=== PATIENT | female | born 1930 | race Caucasian/White ===

== ENCOUNTER → 2016-05-20 | Outpatient (CLI) | payer MEDICARE ==
--- NOTE | 2016-05-20 13:17 | US ---
EXAMINATION TYPE: US kidneys/renal and bladder DATE OF EXAM: 05/20/2016 12:40 PM COMPARISON: NONE CLINICAL HISTORY: chronic renal disease. 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 This appears simply cystic. Bladder: within normal limits There is no evidence for hydronephrosis at this point in time. No nephrolithiasis is seen. No mike s are identified. The urinary bladder is anechoic. Bilateral ureteral jets are seen. The kidneys are isoechoic to surrounding tissue and difficult to visualize IMPRESSION: Simple appearing, 3 cm left renal cyst. Normal Values: Renal Length = 9 - 12cm Bladder Wall: < 0.3cm
== END | disposition home or self-care (01) ==
LOC: RADUSWWP 12:19
PROVIDERS: ATTEND Internal Medicine Nephrology
DX: N28.1 Cyst of kidney, acquired (principal)
CPT/HCPCS: 76770

== ENCOUNTER 2016-06-01 21:32 | Inpatient (IN) | payer MEDICARE ==
[2016-06-01] MEDS ORDERED: PANTOPRAZOLE 40 MG/10 ML VIAL IVP STA (21:56)
--- NOTE | 2016-06-01 22:00 | ED ---
General Adult HPI - General Chief complaint: Recheck/Abnormal Lab/Rx Stated complaint: high coumadin-sent by Time Seen by Provider: 06/01/16 21:47 Source: patient, RN notes reviewed Mode of arrival: wheelchair Limitations: no limitations - History of Present Illness Initial comments: Patient is a pleasant 86-year-old female presenting to the emergency Department with reported abnormal INR level. Patient is on Coumadin for clogged arteries and atrial fibrillation. No black or tarry stools. Patient has had some epigastric abdominal discomfort recently and did have a recent ultrasound of her gallbladder with unknown results. Patient had blood work done and called with an INR level of 9.2. Patient did have low hemoglobin last week and received 2 units of blood at [facility] Patient has been somewhat fatigued for the past week or so. No dyspnea. Patient does have a history of stomach ulcer and stomach cancer in the past. - Related Data Home Medications Medication Instructions Recorded Confirmed Allopurinol [Zyloprim] 150 mg PO DAILY 12/12/13 06/01/16 Atorvastatin [Lipitor] 20 mg PO HS 12/12/13 06/01/16 Ergocalciferol [Vitamin D2 50,000 unit PO CARTY 12/12/13 06/01/16 (DRISDOL)] Fluticasone/Salmeterol [Advair 1 puff INHALATION RT-DAILY 12/12/13 06/01/16 100-50 Diskus] Levothyroxine Sodium [Synthroid] 125 mcg PO DAILY 12/12/13 06/01/16 Montelukast [Singulair] 10 mg PO HS 12/12/13 06/01/16 Raloxifene [Evista] 60 mg PO DAILY 12/12/13 06/01/16 ALPRAZolam [Xanax] 0.25 mg PO Q8HR PRN 10/11/14 06/01/16 B12/Levomefolate Calcium/B-6 1 tab PO DAILY 01/27/16 06/01/16 [Foltx Tablet] Ferrous Gluconate 325 mg PO TID 01/27/16 06/01/16 Fosinopril [Monopril] 10 mg PO DAILY 01/27/16 06/01/16 Calcium Carbonate [Tums] 500 mg PO QID PRN 06/01/16 06/01/16 Warfarin Sodium 4 mg PO SUMOWEFRSA 06/01/16 06/01/16 Warfarin Sodium 6 mg PO TUTH 06/01/16 06/01/16 Previous Rx's Medication Instructions Recorded traMADol HCl [Ultram] 50 mg PO Q6HR PRN #20 tab 01/30/15 Allergies Allergy/AdvReac Type Severity Reaction Status Date / Time aspirin Allergy Rash/Hives Verified 06/01/16 21:49 red dye Allergy Dyspnea Verified 06/01/16 21:49 metoprolol AdvReac Nausea & Verified 06/01/16 21:49 Vomiting Review of Systems ROS Statement: Those systems with pertinent positive or pertinent negative responses have been documented in the HPI. ROS Other: All systems not noted in ROS Statement are negative. Constitutional: Denies: fever Eyes: Denies: eye pain ENT: Denies: ear pain Respiratory: Denies: cough, dyspnea Cardiovascular: Denies: chest pain Endocrine: Reports: fatigue Gastrointestinal: Reports: abdominal pain. Denies: melena, hematochezia Musculoskeletal: Denies: back pain Skin: Denies: rash Neurological: Denies: weakness Past Medical History Past Medical History: Atrial Fibrillation, Asthma, Cancer, GERD/Reflux, Hyperlipidemia, Hypertension, Osteoarthritis (OA), Renal Disease, Thyroid Disorder Additional Past Medical History / Comment(s): duodenal getting chemo(last tx 1 week ago, cancer, thyroid cancer 1960, gout, UTI, anemia, uti's (10-11-14 e coli ), bakers cyst lt knee,osteoporosis History of Any Multi-Drug Resistant Organisms: None Reported Past Surgical History: Joint Replacement, Orthopedic Surgery Additional Past Surgical History / Comment(s): JUSTIN CATARACTS, THYROIDECTOMY, ARTHROSCOPY left knee, TOTAL LEFT KNEE, duodenal stent Past Anesthesia/Blood Transfusion Reactions: No Reported Reaction Additional Past Anesthesia/Blood Transfusion Reaction / Comment(s): BLOOD TRANSFUSION 10/12/14 Past Psychological History: Anxiety Smoking Status: Never smoker Past Alcohol Use History: None Reported Past Drug Use History: None Reported - Past Family History Mother Family Medical History: Diabetes Mellitus General Exam Limitations: no limitations General appearance: alert, in no apparent distress Head exam: Present: atraumatic Eye exam: Present: normal appearance, PERRL ENT exam: Present: normal oropharynx Neck exam: Present: normal inspection Respiratory exam: Present: normal lung sounds bilaterally Cardiovascular Exam: Present: regular rate, normal rhythm GI/Abdominal exam: Present: soft. Absent: tenderness, guarding, rebound, rigid Rectal exam: Present: normal inspection. Absent: black stool, bloody stool Extremities exam: Present: normal inspection Neurological exam: Present: alert Psychiatric exam: Present: normal affect, normal mood Skin exam: Absent: rash Course Vital Signs 06/01/16 21:35 Temperature 98.3 F Pulse Rate 68 Respiratory 16 Rate Blood Pressure 154/62 O2 Sat by Pulse 100 Oximetry Medical Decision Making - Medical Decision Making Patient reevaluated and resting comfortably in bed. Patient does have ultrasound done with report still pending, ultrasound was done as an outpatient. This will need to be reviewed. Patient is Hemoccult-positive with some anemia. Patient will be admitted with GI consult. Case was discussed in detail with practitioner Moraima, who will admit for Dr. Campbell, covering for Dr. Naqvi - Lab Data Result diagrams: 06/01/16 22:30 06/01/16 22:30 Lab Results 06/01/16 06/01/16 06/01/16 Range/Units 22:30 22:30 22:30 WBC 5.0 (3.8-10.6) k/uL RBC 2.72 L (3.80-5.40) m/uL Hgb 8.2 L (11.4-16.0) gm/dL Hct 26.1 L (34.0-46.0) % MCV 96.3 (80.0-100.0) fL MCH 30.3 (25.0-35.0) pg MCHC 31.5 (31.0-37.0) g/dL RDW 15.2 (11.5-15.5) % Plt Count 237 (150-450) k/uL Neutrophils % 75 % Lymphocytes % 14 % Monocytes % 7 % Eosinophils % 2 % Basophils % 1 % Neutrophils # 3.8 (1.3-7.7) k/uL Lymphocytes # 0.7 L (1.0-4.8) k/uL Monocytes # 0.4 (0-1.0) k/uL Eosinophils # 0.1 (0-0.7) k/uL Basophils # 0.0 (0-0.2) k/uL Hypochromasia Slight Poikilocytosis Slight Sodium 141 (137-145) mmol/L Potassium 4.0 (3.5-5.1) mmol/L Chloride 105 (98-107) mmol/L Carbon Dioxide 26 (22-30) mmol/L Anion Gap 10 mmol/L BUN 46 H (7-17) mg/dL Creatinine 1.54 H (0.52-1.04) mg/dL Est GFR (MDRD) Af Amer 39 (>60 ml/min/1.73 sqM) Est GFR (MDRD) Non-Af 32 (>60 ml/min/1.73 sqM) Glucose 107 H (74-99) mg/dL Calcium 8.2 L (8.4-10.2) mg/dL Total Bilirubin 0.3 (0.2-1.3) mg/dL AST 120 H (14-36) U/L ALT 125 H (9-52) U/L Alkaline Phosphatase 152 H (38-126) U/L Total Protein 5.9 L (6.3-8.2) g/dL Albumin 3.2 L (3.5-5.0) g/dL Stool Occult Blood Positive H (Negative) Blood Type Blood Type Recheck Antibody Screen Spec Expiration Date 06/01/16 Range/Units 22:30 WBC (3.8-10.6) k/uL RBC (3.80-5.40) m/uL Hgb (11.4-16.0) gm/dL Hct (34.0-46.0) % MCV (80.0-100.0) fL MCH (25.0-35.0) pg MCHC (31.0-37.0) g/dL RDW (11.5-15.5) % Plt Count (150-450) k/uL Neutrophils % % Lymphocytes % % Monocytes % % Eosinophils % % Basophils % % Neutrophils # (1.3-7.7) k/uL Lymphocytes # (1.0-4.8) k/uL Monocytes # (0-1.0) k/uL Eosinophils # (0-0.7) k/uL Basophils # (0-0.2) k/uL Hypochromasia Poikilocytosis Sodium (137-145) mmol/L Potassium (3.5-5.1) mmol/L Chloride (98-107) mmol/L Carbon Dioxide (22-30) mmol/L Anion Gap mmol/L BUN (7-17) mg/dL Creatinine (0.52-1.04) mg/dL Est GFR (MDRD) Af Amer (>60 ml/min/1.73 sqM) Est GFR (MDRD) Non-Af (>60 ml/min/1.73 sqM) Glucose (74-99) mg/dL Calcium (8.4-10.2) mg/dL Total Bilirubin (0.2-1.3) mg/dL AST (14-36) U/L ALT (9-52) U/L Alkaline Phosphatase (38-126) U/L Total Protein (6.3-8.2) g/dL Albumin (3.5-5.0) g/dL Stool Occult Blood (Negative) Blood Type AB Positive Blood Type Recheck No Antibody Screen NEGATIVE Spec Expiration Date 06/04/2016 - 233 Disposition Clinical Impression: Coagulopathy, GI hemorrhage Disposition: ADMITTED IP TO THIS [facility] Condition: Serious
[2016-06-01] MEDS ORDERED: PHYTONADIONE 2 MG in SODIUM CHLORIDE 0.9% 50 ML IVPB STA ×2 (22:01→23:44)
[2016-06-01 22:48] LABS: Basophils % (A) 1 %; CHCM 32.4; Eosinophils # (A) 0.1 k/uL (0-0.7); Eosinophils % (A) 2 %; HCT 26.1 % (34.0-46.0); HDW 3.54; HGB 8.2 gm/dL (11.4-16.0); Hypochromasia Slight; Luc # (Auto) 0.06; Luc % (Auto) 1; Lymphocytes # (A) 0.7 k/uL (1.0-4.8); Lymphocytes % (A) 14 %; MCH 30.3 pg (25.0-35.0); MCHC 31.5 g/dL (31.0-37.0); MCV 96.3 fL (80.0-100.0); Mean Platelet Volume 8.1; Monocytes # (A) 0.4 k/uL (0-1.0); Monocytes % (A) 7 %; Neutrophils # (A) 3.8 k/uL (1.3-7.7); Neutrophils % (A) 75 %; Poikilocytosis Slight; RBC 2.72 m/uL (3.80-5.40); RDW 15.2 % (11.5-15.5); WBC (Perox) 5.15
[2016-06-01 22:59] LABS: Calcium 8.2 mg/dL (8.4-10.2); Total Bilirubin 0.3 mg/dL (0.2-1.3); Total Protein 5.9 g/dL (6.3-8.2)
[2016-06-01 23:08] LABS: Partial Thromboplastin Time 57.1 sec (22.0-30.0); Prothrombin Time 106.7 sec (9.0-12.0)
[2016-06-01] MEDS ORDERED: NALOXONE 0.4 MG/ML 1 ML VIAL IV PRN (23:37)
[2016-06-01 23:39] LABS: INR >10.0 (<1.1)
[2016-06-01] MEDS ORDERED: PHYTONADIONE ORAL 5 MG/5 ML ORAL.SYRG PO STA (23:41)
[2016-06-02] MEDS: SODIUM CHLORIDE 0.9% 1,000 ML IV SCH ×3 (00:06→11:33)
[2016-06-02 07:01] LABS: Basophils % (A) 0 %; CH 30.6; CHCM 31.3; Eosinophils # (A) 0.1 k/uL (0-0.7); Eosinophils % (A) 3 %; HCT 23.9 % (34.0-46.0); HDW 3.43; HGB 7.6 gm/dL (11.4-16.0); Hypochromasia Moderate; Luc # (Auto) 0.06; Luc % (Auto) 2; Lymphocytes # (A) 0.9 k/uL (1.0-4.8); Lymphocytes % (A) 22 %; MCH 31.2 pg (25.0-35.0); MCHC 31.7 g/dL (31.0-37.0); MCV 98.5 fL (80.0-100.0); Mean Platelet Volume 6.8; Monocytes # (A) 0.3 k/uL (0-1.0); Monocytes % (A) 7 %; Neutrophils # (A) 2.7 k/uL (1.3-7.7); Neutrophils % (A) 67 %; Poikilocytosis Slight; RBC 2.42 m/uL (3.80-5.40); RDW 14.7 % (11.5-15.5)
[2016-06-02 07:14] LABS: INR 1.7 (<1.1); Prothrombin Time 16.6 sec (9.0-12.0)
[2016-06-02 07:28] LABS: Calcium 7.7 mg/dL (8.4-10.2); Potassium 4.1 mmol/L (3.5-5.1); Total Bilirubin 0.6 mg/dL (0.2-1.3); Total Protein 5.1 g/dL (6.3-8.2)
--- NOTE | 2016-06-02 11:14 | P.CONS ---
History of Present Illness - Reason for Consult Consult date: 06/02/16 GI hemorrhage Requesting physician: Donya Campbell - History of Present Illness 86-year-old female patient of Dr. 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 Patient sent to the emergency room for elevated INR greater than 10 with mid epigastric/RUQ discomfort. Ultrasound abdomen was performed Dr. Jackson's office yesterday results are pending. Received 1 unit of FFP current INR 1.7. Hemoglobin on admission 8.2. MCV 96. Current hemoglobin 7.6. Platelet 201. BUN 46. Creatinine 1.5. Total bilirubin 0.3. AST 120. ALT 125. Alkaline phosphatase 152. Hemoccult stool positive but denies overt hematemesis, hematochezia, or melena. Last EGD evaluation for suspected upper GI bleed was in July 2015 at [facility] does not remember the findings but states there was no progression of cancer. Colonoscopy 3-4 years ago to her memory was normal. She received 2 units of blood about a week ago as an outpatient at [facility] for a hemoglobin of 7.0. Review of Systems Constitutional: Denies fever, chills, sweats, weight gain, or loss. HEENT: Negative for migraines, blurred vision or loss, earaches, drainage, tinnitus, oral mucosal lesions, dysphagia, or odynophagia. CARDIAC: Negative for chest pain, Hx of a fib. Hx of hypertension and hyperlipidemia. RESPIRATORY: Negative for shortness of breath, hemoptysis, cough, or sputum production. GI: Adenocarcinoma of duodenum, Hx GERD, negative for nausea, vomiting, diarrhea , constipation, hematemesis, hematochezia, and melena. : Negative for hematuria, urgency, frequency, polyuria, or dysuria. 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 Negative vaginal discharge. MUSCULOSKELETAL: Negative for muscle aches, swelling, arthritis, and arthralgias. NEUROLOGIC: Negative for stroke or TIA. ENDOCRINE: Negative for thyroid problems. SKIN: Negative for rash or itching. PSYCHIATRIC: Negative history for depression and anxiety All systems: negative (See HPI) Past Medical History Past Medical History: Atrial Fibrillation, Asthma, Cancer, GERD/Reflux, Hyperlipidemia, Hypertension, Osteoarthritis (OA), Renal Disease, Thyroid Disorder Additional Past Medical History / Comment(s): duodenal getting chemo(last tx 1 week ago, cancer, thyroid cancer 1960, gout, UTI, anemia, uti's (10-11-14 e coli ), bakers cyst lt knee,osteoporosis History of Any Multi-Drug Resistant Organisms: None Reported Past Surgical History: Joint Replacement, Orthopedic Surgery Additional Past Surgical History / Comment(s): JUSTIN CATARACTS, THYROIDECTOMY, ARTHROSCOPY left knee, TOTAL LEFT KNEE, duodenal stent Past Anesthesia/Blood Transfusion Reactions: No Reported Reaction Additional Past Anesthesia/Blood Transfusion Reaction / Comm: BLOOD TRANSFUSION 10/12/14 Past Psychological History: Anxiety Smoking Status: Never smoker Past Alcohol Use History: None Reported Past Drug Use History: None Reported - Past Family History Mother Family Medical History: Diabetes Mellitus Medications and Allergies Home Medications Medication Instructions Recorded Confirmed Type Allopurinol [Zyloprim] 150 mg PO DAILY 12/12/13 06/01/16 History Atorvastatin [Lipitor] 20 mg PO HS 12/12/13 06/01/16 History Ergocalciferol [Vitamin D2 50,000 unit PO CARTY 12/12/13 06/01/16 History (DRISDOL)] Fluticasone/Salmeterol [Advair 1 puff INHALATION RT-DAILY 12/12/13 06/01/16 History 100-50 Diskus] Levothyroxine Sodium [Synthroid] 125 mcg PO DAILY 12/12/13 06/01/16 History Montelukast [Singulair] 10 mg PO HS 12/12/13 06/01/16 History Raloxifene [Evista] 60 mg PO DAILY 12/12/13 06/01/16 History ALPRAZolam [Xanax] 0.25 mg PO Q8HR PRN 10/11/14 06/01/16 History B12/Levomefolate Calcium/B-6 1 tab PO DAILY 01/27/16 06/01/16 History [Foltx Tablet] Ferrous Gluconate 325 mg PO TID 01/27/16 06/01/16 History Fosinopril [Monopril] 10 mg PO DAILY 01/27/16 06/01/16 History Calcium Carbonate [Tums] 500 mg PO QID PRN 06/01/16 06/01/16 History Warfarin Sodium 4 mg PO SUMOWEFRSA 06/01/16 06/01/16 History Warfarin Sodium 6 mg PO TUTH 06/01/16 06/01/16 History Allergies Allergy/AdvReac Type Severity Reaction Status Date / Time aspirin Allergy Rash/Hives Verified 06/01/16 21:49 red dye Allergy Dyspnea Verified 06/01/16 21:49 metoprolol AdvReac Nausea & Verified 06/01/16 21:49 Vomiting Physical Exam Vitals: Vital Signs Temp Pulse Pulse Resp BP BP Pulse Ox 06/02/16 08:00 97.5 F L 61 16 120/58 97 06/02/16 03:12 96.9 F L 55 L 16 145/66 99 06/02/16 03:02 96.6 F L 55 L 16 135/60 99 06/02/16 02:20 96.2 F L 61 16 145/66 100 06/02/16 01:50 97.3 F L 57 L 16 138/65 98 06/02/16 01:35 98.1 F 60 18 136/61 97 06/02/16 00:12 97 F L 64 16 136/80 100 06/01/16 23:43 97.2 F L 57 L 18 119/60 99 Intake and Output 06/01/16 06/02/16 06/02/16 22:59 06:59 14:59 Intake Total 1191 Output Total 350 Balance 841 Intake: IV 880 Sodium Chloride 0.9% 1, 880 000 ml @ 110 mls/hr IV . Q9H6M [facility] Rx#:[id number] Blood Product 311 Ffp 24 Cpd Unit 311 [id number] Output: Urine 350 Other: Weight 68.1 kg General appearance: The patient is alert, oriented, in no acute distress. HET: Head is normocephalic and atraumatic. Pupils are equal and reactive. Oropharynx is clear without lesions. Neck: Supple without lymphadenopathy. Trachea midline. Heart: S1 S2. Regular rate and rhythm. Lungs: No crackles or wheezes are heard. Abdomen: Soft, nontender, nondistended with bowel sounds. No peritoneal signs. No palpable organomegaly or masses. Extremities: Normal skin color and turgor. No cyanosis, rash, ulceration, clubbing, or edema. Radial and pedal pulses are 2/4 bilaterally. Neurological: No focal deficits. Strength and sensation are grossly intact. Results CBC & Chem 7: 06/04/16 06:19 06/04/16 06:19 Labs: Abnormal Lab Results - Last 24 Hours (Table) 06/02/16 06/02/16 06/02/16 Range/Units 06:43 06:43 06:43 RBC 2.42 L (3.80-5.40) m/uL Hgb 7.6 L (11.4-16.0) gm/dL Hct 23.9 L (34.0-46.0) % Lymphocytes # 0.9 L (1.0-4.8) k/uL PT 16.6 H (9.0-12.0) sec Chloride 111 H (98-107) mmol/L BUN 40 H (7-17) mg/dL Creatinine 1.50 H (0.52-1.04) mg/dL Calcium 7.7 L (8.4-10.2) mg/dL AST 142 H (14-36) U/L ALT 148 H (9-52) U/L Alkaline Phosphatase 171 H (38-126) U/L Total Protein 5.1 L (6.3-8.2) g/dL Albumin 2.8 L (3.5-5.0) g/dL Assessment and Plan (1) GI bleed Narrative/Plan: 86-year-old female with a history of adenocarcinoma of the duodenum diagnosed in 2015 status post chemotherapy 6 months ago presents with acute on chronic anemia, Hemoccult-positive stool without overt gastrointestinal bleeding and midepigastric right upper quadrant discomfort status post abdominal ultrasound, report is pending at time of this dictation rule out peptic ulcer disease rule out progression of duodenal carcinoma. Status: Acute (2) Acute blood loss anemia Narrative/Plan: Acute on chronic anemia Status: Acute (3) Chronic anemia Status: Acute (4) Duodenal adenocarcinoma Status: Acute (5) Coagulopathy Status: Acute Plan: 1. GI prophylaxis Protonix 40 mg IV twice daily. 2. Full liquid diet. Nothing by mouth after midnight. 3. EGD evaluation tomorrow. 4. Monitor CBC closely. PT INR in the a.m. 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 The patient has indicated understanding and acceptance of the risks and procedures discussed. Thank you for this kind referral and the opportunity to participate in the care of your patient. This consultation was discussed with Dr. Haley. The impression and plan of care have been directed as dictated.
[2016-06-02] MEDS: PANTOPRAZOLE 40 MG/10 ML VIAL IV SCH (11:36)
[2016-06-02] MEDS ORDERED: CALCIUM CARBONATE 500 MG CHEWABLE PO PRN (15:29)
[2016-06-02] MEDS ORDERED: ALPRAZolam 0.25 MG TAB PO PRN (15:29)
--- NOTE | 2016-06-02 17:57 | P.HPIM ---
History of Present Illness H&P Date: 06/02/16 Chief Complaint: High INR 86 yr old with history of duodenal adenocarcinoma, GI bleed, A fib is admitted to the hospital after noting an abnormal INR on evaluation by Dr Rodriguez. Pt has a history of duodenal cancer, s/p stent placement in [facility], underwent chemotherapy, currently being followed up at [facility], last ct scan was a month ago. Pt was noted to have an INR greater than 10. Pt underwent a abdominal ultrasound to evaluate this vague abdominal pain the recent times Pt states its is epigastric in location, was noted to have black stools, however has been on feosol in the recent times. Pain has been vague, no alleviating or exacerbating factors. No nausea, or vomiting is reported . Review of Systems All systems: negative (Noted in HPI.) Past Medical History Past Medical History: Atrial Fibrillation, Asthma, Cancer, GERD/Reflux, Hyperlipidemia, Hypertension, Osteoarthritis (OA), Renal Disease, Thyroid Disorder Additional Past Medical History / Comment(s): duodenal getting chemo(last tx 1 week ago, cancer, thyroid cancer 1960, gout, UTI, anemia, uti's (10-11-14 e coli ), bakers cyst lt knee,osteoporosis History of Any Multi-Drug Resistant Organisms: None Reported Past Surgical History: Joint Replacement, Orthopedic Surgery Additional Past Surgical History / Comment(s): JUSTIN CATARACTS, THYROIDECTOMY, ARTHROSCOPY left knee, TOTAL LEFT KNEE, duodenal stent Past Anesthesia/Blood Transfusion Reactions: No Reported Reaction Additional Past Anesthesia/Blood Transfusion Reaction / Comment(s): BLOOD TRANSFUSION 10/12/14 Past Psychological History: Anxiety Smoking Status: Never smoker Past Alcohol Use History: None Reported Past Drug Use History: None Reported - Past Family History Mother Family Medical History: Diabetes Mellitus Medications and Allergies Home Medications Medication Instructions Recorded Confirmed Type Allopurinol [Zyloprim] 150 mg PO DAILY 12/12/13 06/01/16 History Atorvastatin [Lipitor] 20 mg PO HS 12/12/13 06/01/16 History Ergocalciferol [Vitamin D2 50,000 unit PO CARTY 12/12/13 06/01/16 History (UZMA)] Fluticasone/Salmeterol [Advair 1 puff INHALATION RT-DAILY 12/12/13 06/01/16 History 100-50 Diskus] Levothyroxine Sodium [Synthroid] 125 mcg PO DAILY 12/12/13 06/01/16 History Montelukast [Singulair] 10 mg PO HS 12/12/13 06/01/16 History Raloxifene [Evista] 60 mg PO DAILY 12/12/13 06/01/16 History ALPRAZolam [Xanax] 0.25 mg PO Q8HR PRN 10/11/14 06/01/16 History B12/Levomefolate Calcium/B-6 1 tab PO DAILY 01/27/16 06/01/16 History [Foltx Tablet] Ferrous Gluconate 325 mg PO TID 01/27/16 06/01/16 History Fosinopril [Monopril] 10 mg PO DAILY 01/27/16 06/01/16 History Calcium Carbonate [Tums] 500 mg PO QID PRN 06/01/16 06/01/16 History Warfarin Sodium 4 mg PO SUMOWEFRSA 06/01/16 06/01/16 History Warfarin Sodium 6 mg PO TUTH 06/01/16 06/01/16 History Allergies Allergy/AdvReac Type Severity Reaction Status Date / Time aspirin Allergy Rash/Hives Verified 06/01/16 21:49 red dye Allergy Dyspnea Verified 06/01/16 21:49 metoprolol AdvReac Nausea & Verified 06/01/16 21:49 Vomiting Physical Exam Vitals: Vital Signs Temp Pulse Pulse Resp BP BP Pulse Ox 06/02/16 15:18 97.7 F 64 16 143/65 96 06/02/16 15:16 61 16 06/02/16 12:00 97.4 F L 58 L 16 146/66 99 06/02/16 08:00 97.5 F L 61 16 120/58 97 06/02/16 03:12 96.9 F L 55 L 16 145/66 99 06/02/16 03:02 96.6 F L 55 L 16 135/60 99 06/02/16 02:20 96.2 F L 61 16 145/66 100 06/02/16 01:50 97.3 F L 57 L 16 138/65 98 06/02/16 01:35 98.1 F 60 18 136/61 97 06/02/16 00:12 97 F L 64 16 136/80 100 06/01/16 23:43 97.2 F L 57 L 18 119/60 99 Intake and Output 06/02/16 06/02/16 06/02/16 06:59 14:59 22:59 Intake Total 1191 360 Output Total 350 900 Balance 841 -540 Intake: IV 880 Sodium Chloride 0.9% 1, 880 000 ml @ 110 mls/hr IV . Q9H6M [facility] Rx#:[id number] Oral 360 Blood Product 311 Ffp 24 Cpd Unit 311 [id number] Output: Urine 350 900 Other: # Bowel Movements 1 Weight 68.1 kg 68.1 kg Patient Weight 06/03/16 06:59 Weight 68.1 kg Gen Alert oriented times 3, In no distress. Lungs CTA b/l, no rhochi wheezing Heart Currently regularly regular, no murmurs appreciated. Abdomen, soft, tender in the epigastric area. BS intact, no rebound tenderness. Neuro No focal motor or sensory deficits noted. Lower ext: no edema noted. Results CBC & Chem 7: 06/02/16 06:43 06/02/16 06:43 Labs: Abnormal Lab Results - Last 24 Hours (Table) 06/02/16 06/02/16 06/02/16 Range/Units 06:43 06:43 06:43 RBC 2.42 L (3.80-5.40) m/uL Hgb 7.6 L (11.4-16.0) gm/dL Hct 23.9 L (34.0-46.0) % Lymphocytes # 0.9 L (1.0-4.8) k/uL PT 16.6 H (9.0-12.0) sec Chloride 111 H (98-107) mmol/L BUN 40 H (7-17) mg/dL Creatinine 1.50 H (0.52-1.04) mg/dL Calcium 7.7 L (8.4-10.2) mg/dL AST 142 H (14-36) U/L ALT 148 H (9-52) U/L Alkaline Phosphatase 171 H (38-126) U/L Total Protein 5.1 L (6.3-8.2) g/dL Albumin 2.8 L (3.5-5.0) g/dL Thrombosis Risk Factor Assmnt - Choose All That Apply Any of the Below Risk Factors Present?: Yes Each Factor Represents 1 point: Obesity (BMI >25) Each Risk Factor Represents 3 Points: Age 75 years or older Thrombosis Risk Factor Assessment Total Risk Factor Score: 4 Thrombosis Risk Factor Assessment Level: Moderate Risk Assessment and Plan Plan: 1. Acute blood loss on chronic iron deficiency anemia. 2. Supratherapeutic INR due to coumadin coagulopathy. 3. H/o of duodenal adenocarcinoma 4. H/o of paroxysmal a fib. 5. HTN 6. H/o of GI bleed 7. Bowel obstruction s/p duodenal stent. 8. Hypothyroidism Plan Frequent hemoglobins, not symptomatic. GI recs noted. EGD in the am INR is 1.6 Ultrasound abdomen will be repeated. If EGD doesnot suggest overt bleeding, will likely d.c home edmundo. Pt's last HBs has been around 7.6-9.2
[2016-06-02] MEDS: ATORVASTATIN 20 MG TAB PO SCH (19:58)
[2016-06-02] MEDS: traMADol 50 MG TAB PO PRN (20:48)
[2016-06-02] MEDS: IPRATROPIUM-ALBUTEROL 3 ML NEB INHALATION PRN (21:14)
--- NOTE | 2016-06-02 22:28 | US ---
EXAMINATION TYPE: US venous doppler duplex LE RT DATE OF EXAM: 06/02/2016 10:08 PM COMPARISON: on PACS CLINICAL HISTORY: right leg pain, no hx of blood clots, not on any blood thinners. SIDE PERFORMED: Right VESSELS IMAGED: External Iliac Vein (EIV) Common Femoral Vein Deep Femoral Vein Greater Saphenous Vein * Femoral Vein Popliteal Vein Small Saphenous Vein * Proximal Calf Veins (* superficial vessels) TECHNOLOGIST IMPRESSION: Right Leg: Appears negative for DVT Essentially normal phasic flow augmentation and compression is demonstrated in the visualized right c ommon femoral superficial femoral popliteal veins without evidence of deep venous thrombosis. IMPRESSION: No evidence of deep venous thrombosis in the visualized right lower extremity deep veins .
[2016-06-03] MEDS: SODIUM CHLORIDE 0.9% 1,000 ML IV SCH ×3 (02:24→22:46)
[2016-06-03] MEDS: LEVOTHYROXINE 125 MCG TAB PO SCH ×2 (03:27→08:41)
[2016-06-03 04:09] LABS: Basophils % (A) 0 %; CH 30.8; CHCM 31.1; Eosinophils # (A) 0.1 k/uL (0-0.7); Eosinophils % (A) 3 %; HCT 22.3 % (34.0-46.0); HDW 3.37; Hypochromasia Marked; Luc # (Auto) 0.05; Luc % (Auto) 2; Lymphocytes # (A) 0.7 k/uL (1.0-4.8); Lymphocytes % (A) 20 %; MCH 29.5 pg (25.0-35.0); MCHC 29.6 g/dL (31.0-37.0); MCV 99.9 fL (80.0-100.0); Macrocytosis Slight; Mean Platelet Volume 7.9; Monocytes # (A) 0.2 k/uL (0-1.0); Monocytes % (A) 7 %; Neutrophils # (A) 2.3 k/uL (1.3-7.7); Neutrophils % (A) 68 %; RBC 2.23 m/uL (3.80-5.40); RDW 14.8 % (11.5-15.5); WBC 3.4 k/uL (3.8-10.6); WBC (Perox) 3.34
[2016-06-03 04:18] LABS: Calcium 7.3 mg/dL (8.4-10.2); Potassium 4.3 mmol/L (3.5-5.1); Total Bilirubin 0.7 mg/dL (0.2-1.3); Total Protein 4.7 g/dL (6.3-8.2)
[2016-06-03 04:20] LABS: INR 1.2 (<1.1); Prothrombin Time 12.3 sec (9.0-12.0)
[2016-06-03 04:22] LABS: HGB 6.6 gm/dL (11.4-16.0)
[2016-06-03] MEDS: IPRATROPIUM-ALBUTEROL 3 ML NEB INHALATION PRN (05:54)
[2016-06-03] MEDS: PANTOPRAZOLE 40 MG/10 ML VIAL IV SCH (08:40)
[2016-06-03 09:54] LABS: Basophils % (A) 1 %; CHCM 28.9; Eosinophils % (A) 1 %; HCT 29.8 % (34.0-46.0); HDW 3.26; Hypochromasia Marked; Luc # (Auto) 0.07; Luc % (Auto) 2; Lymphocytes # (A) 0.6 k/uL (1.0-4.8); Lymphocytes % (A) 15 %; MCH 30.9 pg (25.0-35.0); MCHC 29.6 g/dL (31.0-37.0); MCV 104.4 fL (80.0-100.0); Macrocytosis Slight; Mean Platelet Volume 7.2; Monocytes # (A) 0.3 k/uL (0-1.0); Monocytes % (A) 8 %; Neutrophils # (A) 3.1 k/uL (1.3-7.7); Neutrophils % (A) 74 %; RBC 2.86 m/uL (3.80-5.40); RDW 14.2 % (11.5-15.5); WBC 4.2 k/uL (3.8-10.6); WBC (Perox) 3.98
[2016-06-03 09:55] LABS: HGB 8.8 gm/dL (11.4-16.0)
--- NOTE | 2016-06-03 10:33 | US ---
EXAMINATION TYPE: US abdomen complete DATE OF EXAM: 06/03/2016 8:32 AM COMPARISON: NONE CLINICAL HISTORY: GI Bleed, known duodenum stent . EXAM MEASUREMENTS: Liver Length: 15.0cm Gallbladder Wall: 0.2cm CBD: 1.5cm Spleen: 12.6cm Right Kidney: 9.1 x 4.3 x 4.8cm Left Kidney: 10.0 x 3.2 x 4.4cm ANATOMY: Pancreas: 0.3cm duct seen, visualized portions otherwise unremarkable Liver: ductal dilatation seen Gallbladder: Somewhat distended, no abnormal luminal echo. Evidence for sonographic Cordon's sign: no CBD: dilated Spleen: upper limits of normal for size Right Kidney: wnl Left Kidney: 3.2cm upper pole cyst Upper IVC: Unremarkable and its visualized portions. Abd Aorta: No evident aneurysm. Minimal free fluid noted about the liver. There is cortical thinning, increased cortical echogenicity suggestive of medical renal disease. The liver is homogenous. The intrahepatic portion of the IVC and proximal abdominal aorta are within normal limits. Echogenic focus present adjacent to the gallbladder. IMPRESSION: Dilated biliary system as described. Findings suggestive of medical renal disease. There are some limitations in the exam. Stent is noted incidentally in the upper abdomen.
[2016-06-03] MEDS ORDERED: LIDOCAINE 1% INJ 10MG/ML (20 ML MDV) ONE (11:40)
[2016-06-03] MEDS ORDERED: PROPOFOL 10 MG/ML 20 ML VIAL IV ONE (11:40)
[2016-06-03] MEDS ORDERED: IV FLUID CONTINUATION 1,000 ML IV ONE (11:44)
[2016-06-03] MEDS ORDERED: EPINEPHrine 10 ML SYRINGE (0.1 MG/ML) MISCELLANE ONE (12:01)
--- NOTE | 2016-06-03 12:06 | P.PCN ---
Date of Procedure: 06/03/16 Procedure(s) Performed: BRIEF HISTORY: Patient is a 86-year-old, pleasant, white female, admitted to the hospital with multiple episodes of black tarry stools for the last few days duration. She was noted to have significant anemia requiring 2 units of PRBC transfusion. She has history of chronic A. fib and on the Coumadin and INR the time of admission to hospital this morning. She received vitamin K and fresh frozen plasma. 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 She underwent a duodenal stent placement as well as is a undergoing chemotherapy. She is scheduled for an upper endoscopy as a part of evaluation of acute upper GI bleed. PROCEDURE PERFORMED: Esophagogastroduodenoscopy with injection epinephrine. PREOPERATIVE DIAGNOSIS: Acute upper GI bleed. IV sedation per anesthesia. PROCEDURE: After informed consent was obtained, the patient was brought into the endoscopy unit. IV conscious sedation was administered by Anesthesia under continuous monitoring. Initially the Olympus GIF-140 video endoscope was inserted into the mouth. Esophagus intubated without any difficulty. It was gradually advanced into the stomach and duodenum and carefully examined. There was a do not duodenal Wallstent identified along the duodenal sweep extending into the second part of the duodenum and fresh blood noted. Thorough irrigation was performed and there was several areas of mucosal oozing identified in this area. This appears to be residual tumor. After throwing irrigation I decided to proceed with injection epinephrine using sclerotherapy needle. Total of 6 mL was injected in multiple areas with there was oozing identified at this time there was some hemostasis achieved. The scope at this time was withdrawn to the stomach, adequately insufflated with air, and upon careful examination, mucosa of the antrum, body, cardia and the fundus appeared normal. The scope was then withdrawn into the esophagus. The GE junction was located at 39 cm from the incisors. The esophagus appeared normal. There were no erosions or ulcerations seen and the patient tolerated the procedure well. IMPRESSION: 1. Mucosal oozing from from several areas noted in the duodenal sweep as well as second part of the duodenum where there was a residual tumor identified and the metal Wallstent noted. Status post injection epinephrine with control of bleeding. 2. Normal-appearing esophagus and stomach. RECOMMENDATIONS: The findings of this examination were discussed with the patient as well as a family. At this time she'll be started on a clear liquid diet and will continue with IV Protonix every 12 hours. Repeat CBC in the morning.
[2016-06-03] MEDS ORDERED: LABETALOL SYRINGE 5 MG/ML IVP PRN (14:58)
--- NOTE | 2016-06-03 15:27 | P.PN ---
Subjective 86 yr old with history of duodenal adenocarcinoma, GI bleed, A fib is admitted to the hospital after noting an abnormal INR on evaluation by Dr Rodriguez. Pt has a history of duodenal cancer, s/p stent placement in [facility], underwent chemotherapy, currently being followed up at [facility], last ct scan was a month ago. Pt was noted to have an INR greater than 10. Pt underwent a abdominal ultrasound to evaluate this vague abdominal pain the recent times Pt states its is epigastric in location, was noted to have black stools, however has been on feosol in the recent times. Pain has been vague, no alleviating or exacerbating factors. No nausea, or vomiting is reported . 06/03/2016 Patient underwent upper endoscopy. Noted to have some bleeding around the residual tumor site around the duodenal stent. Which was cauterized thereafter. Patient denies having any chest pressure, difficulty breathing, nausea, vomiting at this time. Objective - Vital Signs Vital signs: Vital Signs Temp 97.2 F L 06/03/16 11:45 Pulse 58 L 06/03/16 11:45 Resp 16 06/03/16 11:45 BP 169/65 06/03/16 11:45 Pulse Ox 99 06/03/16 11:45 Intake & Output 06/02/16 06/03/16 06/03/16 18:59 06:59 18:59 Intake Total 1240 1760 660 Output Total 900 700 Balance 340 1060 660 Weight 68.1 kg 63.1 kg Intake: IV 880 1760 350 Sodium Chloride 0.9% 1, 880 1760 000 ml @ 110 mls/hr IV . Q9H6M [facility] Rx#:[id number] Oral 360 Blood Product 0 310 Rc As-1 Unit 0 310 [id number] Output: Urine 900 700 Other: # Voids 1 # Bowel Movements 1 - Exam Appearance oriented 3 no distress Lungs good air entry clear to auscultation no crackles or rhonchi or wheezing appreciated. Abdomen is soft tenderness in epigastric region no organomegaly no rebound tenderness Neurologically no focal motor or sensory deficits noted cranial nerves II-12 grossly intact Lower extremities no edema appreciated Skin no pallor or jaundice appreciated. - Labs CBC & Chem 7: 06/03/16 08:57 06/03/16 03:49 Labs: Abnormal Lab Results - Last 24 Hours (Table) 06/03/16 06/03/16 06/03/16 Range/Units 03:49 03:49 03:49 WBC 3.4 L (3.8-10.6) k/uL RBC 2.23 L (3.80-5.40) m/uL Hgb 6.6 L* (11.4-16.0) gm/dL Hct 22.3 L (34.0-46.0) % MCV (80.0-100.0) fL MCHC 29.6 L (31.0-37.0) g/dL Plt Count 147 L (150-450) k/uL Lymphocytes # 0.7 L (1.0-4.8) k/uL PT 12.3 H (9.0-12.0) sec Chloride 113 H (98-107) mmol/L BUN 26 H (7-17) mg/dL Creatinine 1.30 H (0.52-1.04) mg/dL Calcium 7.3 L (8.4-10.2) mg/dL AST 236 H (14-36) U/L ALT 245 H (9-52) U/L Alkaline Phosphatase 177 H (38-126) U/L Total Protein 4.7 L (6.3-8.2) g/dL Albumin 2.5 L (3.5-5.0) g/dL 06/03/16 Range/Units 08:57 WBC (3.8-10.6) k/uL RBC 2.86 L (3.80-5.40) m/uL Hgb 8.8 L D (11.4-16.0) gm/dL Hct 29.8 L (34.0-46.0) % MCV 104.4 H (80.0-100.0) fL MCHC 29.6 L (31.0-37.0) g/dL Plt Count 140 L (150-450) k/uL Lymphocytes # 0.6 L (1.0-4.8) k/uL PT (9.0-12.0) sec Chloride (98-107) mmol/L BUN (7-17) mg/dL Creatinine (0.52-1.04) mg/dL Calcium (8.4-10.2) mg/dL AST (14-36) U/L ALT (9-52) U/L Alkaline Phosphatase (38-126) U/L Total Protein (6.3-8.2) g/dL Albumin (3.5-5.0) g/dL Assessment and Plan Plan: 1. Acute blood loss on chronic iron deficiency anemia. 2. Supratherapeutic INR due to coumadin coagulopathy. 3. H/o of duodenal adenocarcinoma 4. H/o of paroxysmal a fib. 5. HTN 6. H/o of GI bleed 7. Bowel obstruction s/p duodenal stent. 8. Hypothyroidism Plan And he recheck his hemoglobin. We'll have a consultation with cardiology however as patient has had multiple GI bleeds in the last year , benefits of preventing a stroke with atrial fibrillation are much lower than the risks of patient bleeding and further causing increased mortality in this case. I did discuss the case with the patient she agreed to hold the Coumadin at this time however did want to discuss this with her edger machine setter was Dr. Camargo as well.
[2016-06-03] MEDS: LISINOPRIL 20 MG TAB PO SCH (15:39)
[2016-06-03] MEDS: ATORVASTATIN 20 MG TAB PO SCH (20:56)
[2016-06-04] MEDS: LEVOTHYROXINE 125 MCG TAB PO SCH (06:29)
[2016-06-04] MEDS: SODIUM CHLORIDE 0.9% 1,000 ML IV SCH ×2 (06:30→15:33)
[2016-06-04 06:56] LABS: Basophils % (A) 1 %; CH 30.9; CHCM 30.7; Eosinophils # (A) 0.1 k/uL (0-0.7); Eosinophils % (A) 3 %; HCT 28.9 % (34.0-46.0); HDW 3.36; HGB 8.7 gm/dL (11.4-16.0); Hypochromasia Marked; Luc # (Auto) 0.05; Luc % (Auto) 1; Lymphocytes # (A) 0.5 k/uL (1.0-4.8); Lymphocytes % (A) 11 %; MCH 30.5 pg (25.0-35.0); MCHC 30.1 g/dL (31.0-37.0); MCV 101.5 fL (80.0-100.0); Macrocytosis Slight; Mean Platelet Volume 7.8; Monocytes # (A) 0.3 k/uL (0-1.0); Monocytes % (A) 6 %; Neutrophils # (A) 3.7 k/uL (1.3-7.7); Neutrophils % (A) 79 %; RBC 2.85 m/uL (3.80-5.40); RDW 14.7 % (11.5-15.5); WBC 4.7 k/uL (3.8-10.6); WBC (Perox) 4.88
[2016-06-04 07:36] LABS: Calcium 7.9 mg/dL (8.4-10.2); Potassium 4.2 mmol/L (3.5-5.1); Total Bilirubin 1.4 mg/dL (0.2-1.3); Total Protein 5.3 g/dL (6.3-8.2)
[2016-06-04] MEDS: PANTOPRAZOLE 40 MG/10 ML VIAL IV SCH (08:33)
[2016-06-04] MEDS: LISINOPRIL 20 MG TAB PO SCH (08:33)
--- NOTE | 2016-06-04 09:13 | P.CRDCN ---
History of Present Illness Consult date: 06/04/16 Requesting physician: Xu Lindsay Consult reason: atrial fibrillation Chief complaint: Weakness History of present illness: This is a pleasant 86-year-old female with history of chronic persistent atrial fibrillation, chronic anemia, hypertension, hyperlipidemia, she follows regularly with Dr. Wang in the office. 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 She denied any black stool, she states her stool is always dark from being on iron. Hemoglobin on admission 8.2, down to 6.6 yesterday, up to 8.7 today. INR on admission greater than 10, Coumadin has been placed on hold at present. BUN 18, creatinine 1.2, total bilirubin 1.4, AST 239, ALT 293, alk phos 212, albumin 2.7, stool for occult blood positive. The patient underwent an EGD yesterday which revealed mucosal oozing from several areas in the duodenal sweep, and in the water no more there was a residual tumor identified and the metal Wallstent noted. Status post injection of epinephrine to control the bleeding. Normal-appearing esophagus and stomach. Findings were discussed with the patient she is currently on a clear liquid diet and IV Protonix. Blood pressure this morning 170/70, heart rate in the 70s, 96.9 temperature, 99% on room air. Venous duplex study did not reveal any evidence of a DVT. At the time of my examination this morning, she is sitting up in the chair, states that she does feel mildly stronger today. Past Medical History Past Medical History: Atrial Fibrillation, Asthma, Cancer, GERD/Reflux, Hyperlipidemia, Hypertension, Osteoarthritis (OA), Renal Disease, Thyroid Disorder Additional Past Medical History / Comment(s): duodenal getting chemo(last tx 1 week ago, cancer, thyroid cancer 1959, gout, UTI, anemia, uti's (10-11-14 e coli ), bakers cyst lt knee,osteoporosis History of Any Multi-Drug Resistant Organisms: None Reported Past Surgical History: Joint Replacement, Orthopedic Surgery Additional Past Surgical History / Comment(s): JUSTIN CATARACTS, THYROIDECTOMY, ARTHROSCOPY left knee, TOTAL LEFT KNEE, duodenal stent Past Anesthesia/Blood Transfusion Reactions: No Reported Reaction Additional Past Anesthesia/Blood Transfusion Reaction / Comment(s): BLOOD TRANSFUSION 10/12/14 Past Psychological History: Anxiety Smoking Status: Never smoker Past Alcohol Use History: None Reported Past Drug Use History: None Reported - Past Family History Mother Family Medical History: Diabetes Mellitus Medications and Allergies Home Medications Medication Instructions Recorded Confirmed Type Allopurinol [Zyloprim] 150 mg PO DAILY 12/12/13 06/01/16 History Atorvastatin [Lipitor] 20 mg PO HS 12/12/13 06/01/16 History Ergocalciferol [Vitamin D2 50,000 unit PO CARTY 12/12/13 06/01/16 History (DRISDOL)] Fluticasone/Salmeterol [Advair 1 puff INHALATION RT-DAILY 12/12/13 06/01/16 History 100-50 Diskus] Levothyroxine Sodium [Synthroid] 125 mcg PO DAILY 12/12/13 06/01/16 History Montelukast [Singulair] 10 mg PO HS 12/12/13 06/01/16 History Raloxifene [Evista] 60 mg PO DAILY 12/12/13 06/01/16 History ALPRAZolam [Xanax] 0.25 mg PO Q8HR PRN 10/11/14 06/01/16 History B12/Levomefolate Calcium/B-6 1 tab PO DAILY 01/27/16 06/01/16 History [Foltx Tablet] Ferrous Gluconate 325 mg PO TID 01/27/16 06/01/16 History Fosinopril [Monopril] 10 mg PO DAILY 01/27/16 06/01/16 History Calcium Carbonate [Tums] 500 mg PO QID PRN 06/01/16 06/01/16 History Warfarin Sodium 4 mg PO SUMOWEFRSA 06/01/16 06/01/16 History Warfarin Sodium 6 mg PO TUTH 06/01/16 06/01/16 History Allergies Allergy/AdvReac Type Severity Reaction Status Date / Time aspirin Allergy Rash/Hives Verified 06/01/16 21:49 red dye Allergy Dyspnea Verified 06/01/16 21:49 metoprolol AdvReac Nausea & Verified 06/01/16 21:49 Vomiting Physical Exam Vitals: Vital Signs Temp Pulse Resp BP Pulse Ox 06/04/16 08:39 96.9 F L 79 18 171/74 99 06/04/16 04:00 97.6 F 60 16 139/82 95 06/04/16 00:00 97.6 F 60 16 139/82 95 06/03/16 20:49 98.2 F 56 L 16 166/72 97 06/03/16 18:06 177/73 06/03/16 16:00 97.6 F 64 18 200/78 100 06/03/16 11:45 97.0 F L 58 L 16 150/68 98 Intake and Output 06/03/16 06/04/16 06/04/16 22:59 06:59 14:59 Intake Total 880 880 400 Output Total 200 Balance 880 680 400 Intake: IV 880 880 Sodium Chloride 0.9% 1, 880 880 000 ml @ 110 mls/hr IV . Q9H6M [facility] Rx#:[id number] Oral 400 Output: Urine 200 Other: Voiding Method Toilet Toilet Toilet # Voids 1 2 # Bowel Movements 0 Weight 69.7 kg PHYSICAL EXAMINATION: HEENT: Head is atraumatic, normocephalic. Pupils equal, round. Neck is supple. There is no elevated jugular venous pressure. HEART EXAMINATION: Heart S1 and S2 irregular irregular a systolic murmur is heard. CHEST EXAMINATION: Lungs are clear to auscultation and precussion. No chest wall tenderness is noted on palpation or with deep breathing. ABDOMEN: Soft, nontender. Bowel sounds are heard. No organomegaly noted. EXTREMITIES: 2+ peripheral pulses with no evidence of peripheral edema and no calf tenderness noted. NEUROLOGIC patient is awake, alert and oriented -3. . Results 06/04/16 06:19 06/04/16 06:19 Cardiac Enzymes 06/04/16 Range/Units 06:19 AST 239 H (14-36) U/L CBC 06/03/16 06/04/16 Range/Units 08:57 06:19 WBC 4.2 4.7 (3.8-10.6) k/uL RBC 2.86 L 2.85 L (3.80-5.40) m/uL Hgb 8.8 L D 8.7 L (11.4-16.0) gm/dL Hct 29.8 L 28.9 L (34.0-46.0) % Plt Count 140 L 166 (150-450) k/uL Comprehensive Metabolic Panel 06/04/16 Range/Units 06:19 Sodium 143 (137-145) mmol/L Potassium 4.2 (3.5-5.1) mmol/L Chloride 114 H (98-107) mmol/L Carbon Dioxide 20 L (22-30) mmol/L BUN 18 H (7-17) mg/dL Creatinine 1.27 H (0.52-1.04) mg/dL Glucose 82 (74-99) mg/dL Calcium 7.9 L (8.4-10.2) mg/dL AST 239 H (14-36) U/L ALT 293 H (9-52) U/L Alkaline Phosphatase 212 H (38-126) U/L Total Protein 5.3 L (6.3-8.2) g/dL Albumin 2.7 L (3.5-5.0) g/dL Current Medications Generic Name Dose Route Start Last Admin Trade Name Freq PRN Reason Stop Dose Admin Albuterol/Ipratropium 3 ml 06/02/16 21:03 06/03/16 05:54 Duoneb 0.5 Mg-3 Mg/3 Ml Soln INHALATION 3 ml RT-QID PRN Administration Shortness Of Breath Or Wheezing Alprazolam 0.25 mg 06/02/16 15:29 Xanax PO Q8HR PRN Anxiety Atorvastatin Calcium 20 mg 06/02/16 21:00 06/03/16 20:56 Lipitor PO 20 mg HS APOLONIA Administration Calcium Carbonate/Glycine 500 mg 06/02/16 15:29 Tums PO QID PRN Indigestion Sodium Chloride 1,000 mls @ 110 mls/hr 06/01/16 23:45 06/04/16 06:30 Saline 0.9% IV 110 mls/hr .Q9H6M [facility] Administration Labetalol HCl 10 mg 06/03/16 14:58 Trandate Syringe IVP Q6HR PRN Hypertension Levothyroxine Sodium 125 mcg 06/03/16 06:30 06/04/16 06:29 Synthroid PO 125 mcg DAILY@0630 APOLONIA Administration Lisinopril 20 mg 06/03/16 16:00 06/04/16 08:33 Zestril PO 20 mg DAILY APOLONIA Administration Naloxone HCl 0.2 mg 06/01/16 23:37 Narcan IV Q2M PRN Opioid Reversal Pantoprazole Sodium 40 mg 06/02/16 09:00 06/04/16 08:33 Protonix IV 40 mg DAILY APOLONIA Administration Tramadol HCl 50 mg 06/02/16 15:29 06/02/16 20:48 Ultram PO 50 mg Q6HR PRN Administration Pain Intake and Output 06/03/16 06/04/16 06/04/16 22:59 06:59 14:59 Intake Total 880 880 400 Output Total 200 Balance 880 680 400 Intake: IV 880 880 Sodium Chloride 0.9% 1, 880 880 000 ml @ 110 mls/hr IV . Q9H6M [facility] Rx#:[id number] Oral 400 Output: Urine 200 Other: Voiding Method Toilet Toilet Toilet # Voids 1 2 # Bowel Movements 0 Weight 69.7 kg 06/04/16 06:19 06/04/16 06:19 EKG Interpretations (text) No EKG performed. Assessment and Plan Plan: Assessment and plan #1 acute GI bleed, history of duodenal adenocarcinoma, status post EGD yesterday which revealed mucosal oozing from several areas in the duodenum #2 acute blood loss anemia #3 coagulopathy INR greater than 10 on admission. #4 history of chronic persistent atrial fibrillation, on Coumadin #5 hypertension #6 hyperlipidemia #7 abnormal liver functions #8 history of thyroid cancer #9 acute on chronic renal insufficiency Plan The patient's Coumadin is currently on hold. She is on clear liquids at this time as well as IV Protonix. We will discontinue her Lipitor secondary to the elevated liver functions. We will also discuss with GI service regarding reinitiating anticoagulation at some point. We will check to see if the patient has coverage for Eliquis 2-1/2 mg one tablet by mouth twice a day. Obtain EKG. Obtain echocardiogram with Doppler study. Further recommendations to follow. DNP note has been reviewed, I agree with a documented findings and plan of care. Patient was seen and examined.
[2016-06-05] MEDS: SODIUM CHLORIDE 0.9% 1,000 ML IV SCH ×3 (00:33→16:50)
[2016-06-05] MEDS: LEVOTHYROXINE 125 MCG TAB PO SCH (06:46)
[2016-06-05] MEDS: PANTOPRAZOLE 40 MG/10 ML VIAL IV SCH (10:02)
[2016-06-05] MEDS: LISINOPRIL 20 MG TAB PO SCH (10:02)
--- NOTE | 2016-06-05 12:08 | PN ---
DATE OF SERVICE: 06/04/2016 INTERVAL HISTORY: Ms. Carter is an 86-year-old with known history of duodenal adenocarcinoma, GI bleed, atrial fibrillation, on anticoagulation with Coumadin was admitted to the hospital with abnormal INR level. Currently, INR level came down to 1.2. Patient underwent EGD yesterday, which showed duodenal mass and biopsies were obtained. Patient does have a history of duodenal cancer, status post stent placement at [facility] and underwent chemotherapy. Currently followed at [facility]. Currently, patient is tolerating liquid diet. Anticoagulation has held at this time. Cardiology and GI is following this patient. Currently denied any complaints of nausea or vomiting, abdominal pain. No cough, chest pain, or short of breath. No fever, no chills. No acute overnight issues. REVIEW OF SYSTEMS: CONSTITUTIONAL: No fever. No chills. RESPIRATORY: No cough or sputum production. CARDIOVASCULAR: No chest pain or shortness of breath. ABDOMEN: No nausea, vomiting, or abdominal pain. GENITOURINARY: Negative. ENDOCRINE: Negative. PSYCHIATRIC: Negative. SKIN: Negative. All other 14-point review of systems negative except the above. Current medications include DuoNeb, Xanax, Tums, labetalol p.r.n., Synthroid, Zestril, Narcan, Protonix and tramadol. PHYSICAL EXAMINATION: An 86-year-old female lying in bed comfortably, awake, alert, oriented x3. No focal neurologic deficits. In no apparent distress. VITALS: Blood pressure is 133/72, pulse is 97, respirations 18, temperature afebrile, pulse ox 97% on room air. HEENT: Atraumatic, normocephalic. Neck is supple. No JVD. CVS EXAM: S1, S2 heard. No murmurs, no gallop, no rub. LUNGS: Bilateral air entry is present. No wheezing. No crackles. Nonlabored breathing. ABDOMEN: Soft, nontender. Bowel sounds are present. ACCOUNTING SOFTWARE SPECIALIST: Awake, alert, oriented x3. No focal deficits. Cranial nerves grossly intact. EXTREMITIES: No edema. Pulses palpable bilaterally. No clubbing or cyanosis. PSYCHIATRIC: Cooperative. LABORATORY DATA: WBC 4.7, hemoglobin 8.7, platelets 166. Sodium 143, potassium 4.2, chloride 114, bicarb is 20. BUN 18, creatinine 1.27. Total bilirubin 1.4, AST is. 239, ALT is 293, alk phos 212. Albumin 2.7. IMPRESSION: 1. Acute blood loss anemia most likely secondary to gastrointestinal bleed, status post endoscopy showed duodenal mass. Hemoglobin is stable at 8.7 today. 2. Supratherapeutic INR level due to Coumadin coagulopathy on admission, improved now. Coumadin has been held due to gastrointestinal bleed. 3. History of duodenal adenocarcinoma and followed at [facility], status post chemotherapy. 4. History of paroxysmal atrial fibrillation, rate is controlled. 5. Hypertension. 6. Previous history of gastrointestinal bleed. 7. History of bowel obstruction, status post duodenal stent. 8. Hypothyroidism. DISCUSSION AND PLAN: An 86-year-old female admitted to the hospital with acute blood loss anemia and Coumadin coagulopathy. We will continue the PPI and patient was started on clear liquid diet and will be advanced to a soft diet and advance as tolerated. Follow up hemoglobin and hematocrit. Continue the current management. Continue to hold anticoagulation and statins due to elevated liver enzymes. Further recommendations based on the clinical course. Discussed with the patient and her son at bedside.
--- NOTE | 2016-06-05 12:55 | P.PN ---
Subjective Principal diagnosis: anemia 86 year old female with history of duodenal carcinoma status post EGD with epinephrine injection secondary to oozing from duodenal sweep/residual cancer. Feels well. No active GI bleeding. Tolerating regular diet. Anticoagulation on hold. Objective - Vital Signs Vital signs: Vital Signs Temp 99.4 F 06/05/16 11:19 Pulse 69 06/05/16 11:19 Resp 18 06/05/16 11:19 BP 146/66 06/05/16 11:19 Pulse Ox 96 06/05/16 11:19 Intake & Output 06/04/16 06/05/16 06/05/16 18:59 06:59 18:59 Intake Total 760 160 340 Output Total 600 Balance 760 -440 340 Weight 69 kg Intake: IV 160 160 160 Sodium Chloride 0.9% 1, 160 160 160 000 ml @ 110 mls/hr IV . Q9H6M [facility] Rx#:[id number] Oral 600 180 Output: Urine 600 Other: Voiding Method Toilet Toilet Toilet # Voids 1 1 # Bowel Movements 0 - Constitutional General appearance: Present: average body habitus - EENT Eyes: Present: normal appearance - Neck Neck: Present: normal ROM - Respiratory Respiratory: bilateral: CTA - Cardiovascular Heart sounds: normal: S1, S2 - Gastrointestinal General gastrointestinal: Present: normal bowel sounds - Integumentary Integumentary: Present: normal turgor - Musculoskeletal Musculoskeletal: Present: gait normal, strength equal bilaterally - Psychiatric Psychiatric: Present: A&O x's 3, appropriate affect - Labs CBC & Chem 7: 06/04/16 06:19 06/04/16 06:19 Assessment and Plan (1) GI bleed Narrative/Plan: 86-year-old female with a history of adenocarcinoma of the duodenum diagnosed in 2014 status post chemotherapy 6 months ago presents with acute on chronic anemia, Hemoccult-positive stool without overt gastrointestinal bleeding and midepigastric right upper quadrant discomfort status post abdominal ultrasound, report is pending at time of this dictation rule out peptic ulcer disease rule out progression of duodenal carcinoma. Status post EGD with epinephrine injection secondary to oozing duodenal sweep/ residual cancer. Status: Acute (2) Acute blood loss anemia Narrative/Plan: Acute on chronic anemia Status: Acute (3) Chronic anemia Status: Acute (4) Duodenal adenocarcinoma Status: Acute (5) Coagulopathy Status: Acute Plan: 1. Continue GI prophylaxis. Omeprazole 40 mg daily. 2. Discussion held with cardiology REGIONAL GUIDE Lydia Trinidad. Eliquis can be started on Thursday 06/08 as directed. If patient has recurrent bleeding or precipitous drop in hemoglobin anticoagulation continuance will need to be reconsidered. Patient understands the risks and is agreeable with plan of care. RTO 1-2 weeks. Assessment and plan of care discussed with Dr. Bajwa.
[2016-06-05 13:14] VITALS: BMI 27.8
--- NOTE | 2016-06-05 14:32 | CDI ---
In responding to this query, please exercise your independent professional judgment. The [facility] Coding Staff and Clinical Documentation Specialists appreciate your assistance in clarifying documentation, maintaining compliance with coding guidelines, accurately documenting patients condition and capturing severity of illness. The fact that a question is asked does not imply that any particular answer is desired or expected. Communication forms are a method of clarifying documentation and are not made part of the Legal Health Record. Thank you in advance for your clarification. Last Revision, March 2015 Macario Sims [address] [facility] [place] [address] Documentation Clarification Form Date: 06/05/2016 2:12:00 PM From: Janina Jovel Admit Date: 06/01/2016 11:37:00 PM Patient Name: Shannon Carter Visit Number: [id number] Discharge Date: Dr. Sade Hardin Patient presents with a BUN 46, CR 1.54, GFR 32 06/02/16 BUN 40, CR 1.50 GFR 33, 06/04/16 BUN 18 CR 1.27 GFR 40 History/Risk Factors: Paroxysmal atrial fibrillation, Hypertension, Duodenal Adenocarcinoma, hypothyroidism, renal disease, Patients baseline BUN/CR/GFR: Not noted Clinical Indicators: Patient has been somewhat fatigued for the past week. with history of stomach cancer. She had mid epigastric/RUQ discomfort. Treatment: 9@110 mls/hr Monitor Labs In order to capture the severity of condition, please clarify if the condition signifies: Acute renal failure Please specify (if known): Cortical, Medullary, or Tubular Necrosis? Acute kidney injury Acute on chronic renal failure Chronic renal failure, please stage Chronic kidney disease (CKD) and please stage Stage 1 GFR >90 Stage 2 GFR 60-89 Stage 3 GFR 30-59 Stage 4 GFR 15-29 Stage 5 GFR <15 ESRD Unable to determine Other, specify Please document in your progress notes and discharge summary in order to capture severity of illness and risk of mortality. Include clinical findings that support your diagnosis. FYI: Press F11 to launch patient chart. Place X here if this finding has no clinical significance, is not applicable or if you are not able to provide any additional documentation. CRESENCIO
--- NOTE | 2016-06-05 14:57 | P.PN ---
Subjective Principal diagnosis: GI bleed This is a pleasant 86-year-old female with history of chronic persistent atrial fibrillation, chronic anemia, hypertension, hyperlipidemia, she follows regularly with Dr. Wang in the office. 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 She denied any black stool, she states her stool is always dark from being on iron. Hemoglobin on admission 8.2, down to 6.6 yesterday, up to 8.7 today. INR on admission greater than 10, Coumadin has been placed on hold at present.The patient underwent an EGD yesterday which revealed mucosal oozing from several areas in the duodenal sweep, and in the water no more there was a residual tumor identified and the metal Wallstent noted. Status post injection of epinephrine to control the bleeding. Normal- appearing esophagus and stomach. Findings were discussed with the patient she is currently on a clear liquid diet and IV Protonix. Patient does state overall that she is feeling better today. I had a discussion today with Teresa Torres the nurse practitioner for GI service, their recommendation is to not resume oral anticoagulation until Wednesday. Therefore we will start the patient on Eliquis 2-1/2 mg one tablet by mouth twice a day on Wednesday. Objective - Vital Signs Vital signs: Vital Signs Temp 99.4 F 06/05/16 11:19 Pulse 69 06/05/16 11:19 Resp 18 06/05/16 11:19 BP 146/66 06/05/16 11:19 Pulse Ox 96 06/05/16 11:19 Intake & Output 06/04/16 06/05/16 06/05/16 18:59 06:59 18:59 Intake Total 760 160 720 Output Total 600 Balance 760 -440 720 Weight 69 kg 69 kg Intake: IV 160 160 300 Sodium Chloride 0.9% 1, 160 160 300 000 ml @ 110 mls/hr IV . Q9H6M [facility] Rx#:[id number] Oral 600 420 Output: Urine 600 Other: Voiding Method Toilet Toilet Toilet # Voids 1 1 # Bowel Movements 0 - Exam PHYSICAL EXAMINATION: HEENT: Head is atraumatic, normocephalic. Pupils equal, round. Neck is supple. There is no elevated jugular venous pressure. HEART EXAMINATION: Heart S1 and S2 irregular irregular a systolic murmur is heard. CHEST EXAMINATION: Lungs are clear to auscultation and precussion. No chest wall tenderness is noted on palpation or with deep breathing. ABDOMEN: Soft, nontender. Bowel sounds are heard. No organomegaly noted. EXTREMITIES: 2+ peripheral pulses with no evidence of peripheral edema and no calf tenderness noted. NEUROLOGIC patient is awake, alert and oriented -3. . - Labs CBC & Chem 7: 06/04/16 06:19 06/04/16 06:19 Assessment and Plan Plan: Assessment and plan #1 acute GI bleed, history of duodenal adenocarcinoma, status post EGD yesterday which revealed mucosal oozing from several areas in the duodenum #2 acute blood loss anemia #3 coagulopathy INR greater than 10 on admission. #4 history of chronic persistent atrial fibrillation, #5 hypertension #6 hyperlipidemia #7 abnormal liver functions #8 history of thyroid cancer #9 acute on chronic renal insufficiency Plan The patient's Coumadin is currently on hold. She is on clear liquids at this time as well as IV Protonix. GI service has okayed the initiation of anticoagulation on Wednesday. Therefore on Wednesday we will start the patient on Eliquis 2-1/2 mg one tablet by mouth twice a day.. Obtain EKG. Obtain echocardiogram with Doppler study. Further recommendations to follow. DNP note has been reviewed, I agree with a documented findings and plan of care. Patient was seen and examined.
[2016-06-05 15:13] LABS: Basophils % (A) 1 %; CH 30.7; CHCM 30.5; Eosinophils # (A) 0.1 k/uL (0-0.7); Eosinophils % (A) 2 %; HCT 30.3 % (34.0-46.0); HDW 3.24; HGB 9.1 gm/dL (11.4-16.0); Hypochromasia Marked; Luc # (Auto) 0.03; Luc % (Auto) 1; Lymphocytes # (A) 0.5 k/uL (1.0-4.8); Lymphocytes % (A) 13 %; MCH 30.4 pg (25.0-35.0); MCHC 29.9 g/dL (31.0-37.0); MCV 101.5 fL (80.0-100.0); Macrocytosis Slight; Monocytes # (A) 0.2 k/uL (0-1.0); Monocytes % (A) 6 %; Neutrophils # (A) 2.8 k/uL (1.3-7.7); Neutrophils % (A) 78 %; RBC 2.99 m/uL (3.80-5.40); RDW 14.6 % (11.5-15.5); WBC 3.6 k/uL (3.8-10.6); WBC (Perox) 3.69
[2016-06-05 15:37] LABS: Calcium 7.8 mg/dL (8.4-10.2); Potassium 3.9 mmol/L (3.5-5.1)
[2016-06-06] MEDS: SODIUM CHLORIDE 0.9% 1,000 ML IV SCH (06:32)
[2016-06-06] MEDS: LEVOTHYROXINE 125 MCG TAB PO SCH (06:33)
[2016-06-06 07:09] LABS: CH 30.6; CHCM 31.1; HCT 30.1 % (34.0-46.0); HDW 3.28; HGB 9.4 gm/dL (11.4-16.0); Hypochromasia Moderate; MCH 31.1 pg (25.0-35.0); MCHC 31.4 g/dL (31.0-37.0); Mean Platelet Volume 6.8; RBC 3.04 m/uL (3.80-5.40); RDW 14.5 % (11.5-15.5); WBC 4.6 k/uL (3.8-10.6)
--- NOTE | 2016-06-06 10:12 | PN ---
DATE OF SERVICE: 06/05/2016 INTERVAL HISTORY: Ms. Carter is an 86-year-old female with known history of duodenal adenocarcinoma, GI bleed, atrial fibrillation anticoagulated with Coumadin was admitted to the hospital with abdominal INR level and patient was found to have a low hemoglobin and patient underwent EGD on 06/03/16, which showed duodenal mass and one small ulcer. Biopsies were taken. Patient usually follows with [facility] where she had duodenal stent placement and also underwent chemotherapy for duodenal adenocarcinoma. Currently, hemoglobin is stable at 9.1 now. Gastroenterology and Cardiology is following the patient and planning to start back on anticoagulation on Wednesday, ,. Otherwise, the patient is tolerating soft diet now. Patient does complain of green colored stool today. No diarrhea, nausea, vomiting, or abdominal pain. No hematemesis or melena. Otherwise, no acute overnight issues. REVIEW OF SYSTEMS: Complete review of systems negative except as the above. Current medications include DuoNeb, Xanax, Tums, labetalol p.r.n., Synthroid, Zestril, Narcan, Protonix and tramadol. PHYSICAL EXAMINATION: An 86-year-old female lying in the bed comfortably, awake, alert, oriented x3. Appears to be in no apparent distress. VITALS: Blood pressure is 163/68, pulse is 92, respirations 18, temperature afebrile, pulse ox 96% on room air. HEENT: Atraumatic, normocephalic. Neck is supple. No JVD. CVS: S1, S2 heard. No murmurs, no gallop. LUNGS: Bilateral air entry is present. No wheezing. No crackles. ABDOMEN: Soft, nontender. Bowel sounds are present. REJECTOR: Awake, alert and oriented x3. No focal deficits. Cranial nerves grossly intact. EXTREMITIES: No edema. Pulses are palpable bilaterally. No clubbing or cyanosis. PSYCHIATRIC: Cooperative. LABORATORY DATA: WBC 3.6, hemoglobin 9.1, platelets 176. IMPRESSION: 1. Acute blood loss anemia secondary to gastrointestinal bleed. Endoscopy showed duodenal mass and a small ulcer. Hemoglobin improved to 9.1 today. Will continue the PPI daily. 2. Supratherapeutic INR level due to Coumadin coagulopathy on admission, improved now. 3. Paroxysmal atrial fibrillation, anticoagulation has been held and will be restarted on Wednesday as per cardiac recommendations. 4. History of duodenal ulcer. Patient to follow at [facility], status post chemotherapy. 5. History of duodenal adenocarcinoma. 6. Hypertension. 7. History of gastrointestinal bleed. 8. History of bowel obstruction, status post duodenal stent placement. 9. Hypothyroidism. 10. CHERELLE on CKD-3 likely prerenal DISCUSSION AND PLAN: An 86-year-old female admitted to the hospital with acute blood loss anemia ( ) Coumadin coagulopathy. Hemoglobin has been stable . Continue the PPI. Restart on anticoagulation on Wednesday as per Cardiology recommendations. Continue soft diet and follow up closely. Further recommendations based on the clinical course. MTDD
[2016-06-06] MEDS: PANTOPRAZOLE 40 MG/10 ML VIAL IV SCH (10:38)
[2016-06-06] MEDS: LISINOPRIL 20 MG TAB PO SCH (10:38)
[2016-06-06] MEDS: traMADol 50 MG TAB PO PRN (10:40)
[2016-06-06 11:23] LABS: Appearance,Urine Clear (Clear); Bacteria,Urine Rare /hpf; Bilirubin,Urine 1+ (Negative); Glucose,Urine (UA) Negative (Negative); Ketones,Urine Negative (Negative); Leukocyte Esterase,Urine Moderate (Negative); Mucus,Urine Rare /hpf; Nitrite,Urine Negative (Negative); PH, Urine 5.5 (5.0-8.0); Particle Count 1605; Protein,Urine Trace (Negative); RBC,Urine 2 /hpf (0-5); Squamous Epithelial Cell,Urine <1 /hpf (0-4); UA Billing (MACRO vs. MICRO) MICRO; WBC,Urine 9 /hpf (0-5)
--- NOTE | 2016-06-06 11:46 | P.PN ---
Subjective Principal diagnosis: GI bleed This is a pleasant 86-year-old female with history of chronic persistent atrial fibrillation, chronic anemia, hypertension, hyperlipidemia, she follows regularly with Dr. Wang in the office. 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 She denied any black stool, she states her stool is always dark from being on iron. Hemoglobin on admission 8.2, down to 6.6 yesterday, up to 8.7 today. INR on admission greater than 10, Coumadin has been placed on hold at present.The patient underwent an EGD which revealed mucosal oozing from several areas in the duodenal sweep, and in the water no more there was a residual tumor identified and the metal Wallstent noted. Status post injection of epinephrine to control the bleeding. Normal-appearing esophagus and stomach. Findings were discussed with the patient she is currently on a clear liquid diet and IV Protonix. Patient does state overall that she is feeling better today. She is complaining of significant pain in her left foot. I had a discussion today with Teresa Torres the nurse practitioner for GI service, their recommendation is to not resume oral anticoagulation until Wednesday. Therefore we will start the patient on Eliquis 2- 1/2 mg one tablet by mouth twice a day on Wednesday. A lengthy discussion was made with the patient regarding the risk of bleeding and the risk of stroke, she wishes to start anticoagulation. Objective - Vital Signs Vital signs: Vital Signs Temp 98.5 F 06/06/16 04:00 Pulse 80 06/06/16 04:00 Resp 16 06/06/16 04:00 BP 146/70 06/06/16 04:00 Pulse Ox 98 06/06/16 04:00 Intake & Output 06/05/16 06/06/16 06/06/16 18:59 06:59 18:59 Intake Total 1020 260 220 Output Total 500 Balance 1020 -240 220 Weight 69 kg 69.1 kg Intake: IV 300 160 160 Sodium Chloride 0.9% 1, 300 160 160 000 ml @ 110 mls/hr IV . Q9H6M [facility] Rx#:[id number] Oral 720 100 60 Output: Urine 500 Other: Voiding Method Toilet Toilet - Exam PHYSICAL EXAMINATION: HEENT: Head is atraumatic, normocephalic. Pupils equal, round. Neck is supple. There is no elevated jugular venous pressure. HEART EXAMINATION: Heart S1 and S2 irregular irregular a systolic murmur is heard. CHEST EXAMINATION: Lungs are clear to auscultation and precussion. No chest wall tenderness is noted on palpation or with deep breathing. ABDOMEN: Soft, nontender. Bowel sounds are heard. No organomegaly noted. EXTREMITIES: 2+ peripheral pulses with no evidence of peripheral edema and no calf tenderness noted. NEUROLOGIC patient is awake, alert and oriented -3. . - Labs CBC & Chem 7: 06/06/16 06:43 06/05/16 14:36 Labs: Abnormal Lab Results - Last 24 Hours (Table) 06/05/16 06/05/16 06/06/16 Range/Units 14:36 14:54 06:43 WBC 3.6 L (3.8-10.6) k/uL RBC 2.99 L 3.04 L (3.80-5.40) m/uL Hgb 9.1 L 9.4 L (11.4-16.0) gm/dL Hct 30.3 L 30.1 L (34.0-46.0) % MCV 101.5 H (80.0-100.0) fL MCHC 29.9 L (31.0-37.0) g/dL Lymphocytes # 0.5 L (1.0-4.8) k/uL Chloride 112 H (98-107) mmol/L Carbon Dioxide 21 L (22-30) mmol/L Creatinine 1.43 H (0.52-1.04) mg/dL Glucose 133 H (74-99) mg/dL Calcium 7.8 L (8.4-10.2) mg/dL Urine Protein (Negative) Urine Bilirubin (Negative) Ur Leukocyte Esterase (Negative) Urine WBC (0-5) /hpf Urine Bacteria (None) /hpf Urine Mucus (None) /hpf 06/06/16 Range/Units 11:10 WBC (3.8-10.6) k/uL RBC (3.80-5.40) m/uL Hgb (11.4-16.0) gm/dL Hct (34.0-46.0) % MCV (80.0-100.0) fL MCHC (31.0-37.0) g/dL Lymphocytes # (1.0-4.8) k/uL Chloride (98-107) mmol/L Carbon Dioxide (22-30) mmol/L Creatinine (0.52-1.04) mg/dL Glucose (74-99) mg/dL Calcium (8.4-10.2) mg/dL Urine Protein Trace H (Negative) Urine Bilirubin 1+ H (Negative) Ur Leukocyte Esterase Moderate H (Negative) Urine WBC 9 H (0-5) /hpf Urine Bacteria Rare H (None) /hpf Urine Mucus Rare H (None) /hpf Assessment and Plan Plan: Assessment and plan #1 acute GI bleed, history of duodenal adenocarcinoma, status post EGD which revealed mucosal oozing from several areas in the duodenum #2 acute blood loss anemia #3 coagulopathy INR greater than 10 on admission. #4 history of chronic persistent atrial fibrillation, #5 hypertension #6 hyperlipidemia #7 abnormal liver functions #8 history of thyroid cancer #9 acute on chronic renal insufficiency Plan The patient's Coumadin is currently on hold. She is on full diet at this time as well as IV Protonix. GI service has okayed the initiation of anticoagulation on Wednesday. Therefore on Wednesday we will start the patient on Eliquis 2-1/2 mg one tablet by mouth twice a day. Recommend x-ray of the left foot.. Follow-up appointment will be made with Dr. Camargo in the office. DNP note has been reviewed, I agree with a documented findings and plan of care. Patient was seen and examined.
[2016-06-06 11:53] VITALS: RESP 18
--- NOTE | 2016-06-06 12:20 | XR ---
EXAMINATION TYPE: XR ankle complete LT DATE OF EXAM: 06/06/2016 11:35 AM COMPARISON: NONE HISTORY: Some foot pain TECHNIQUE: 3 view left ankle FINDINGS: Plantar and Achilles tendon calcaneal heel spurs are present. Tiny ossifications adjacent t o the medial malleolus may be chronic in nature. Tiny avulsion is considered less likely. An acute os seous abnormality is not identified. IMPRESSION: 1. No acute osseous abnormality
[2016-06-06] MEDS ORDERED: HYDROmorphone 1 MG/ML 1 ML SYRINGE IVP ONE (14:58)
[2016-06-06 15:12] LABS: Bilirubin, Delta 1.4 mg/dL (0.0-0.2); Total Bilirubin 2.4 mg/dL (0.2-1.3); Total Protein 5.3 g/dL (6.3-8.2)
[2016-06-07] MEDS: SODIUM CHLORIDE 0.9% 1,000 ML IV SCH ×5 (06:46→23:54)
[2016-06-07] MEDS: LEVOTHYROXINE 125 MCG TAB PO SCH (06:47)
[2016-06-07] MEDS: LISINOPRIL 20 MG TAB PO SCH (08:46)
[2016-06-07] MEDS: PANTOPRAZOLE 40 MG/10 ML VIAL IV SCH (08:54)
[2016-06-07 09:08] LABS: Basophils % (A) 0 %; CH 30.3; CHCM 30.6; Eosinophils % (A) 0 %; HCT 30.5 % (34.0-46.0); HDW 3.19; HGB 9.5 gm/dL (11.4-16.0); Hypochromasia Marked; Luc # (Auto) 0.08; Luc % (Auto) 1; Lymphocytes # (A) 0.5 k/uL (1.0-4.8); Lymphocytes % (A) 6 %; MCHC 31.1 g/dL (31.0-37.0); MCV 99.6 fL (80.0-100.0); Macrocytosis Slight; Mean Platelet Volume 7.1; Monocytes # (A) 0.3 k/uL (0-1.0); Monocytes % (A) 4 %; Neutrophils # (A) 6.6 k/uL (1.3-7.7); Neutrophils % (A) 88 %; RBC 3.07 m/uL (3.80-5.40); RDW 14.4 % (11.5-15.5); WBC 7.5 k/uL (3.8-10.6); WBC (Perox) 7.74
[2016-06-07 09:17] LABS: Bilirubin, Delta 1.7 mg/dL (0.0-0.2); Calcium 7.8 mg/dL (8.4-10.2); Total Bilirubin 3.4 mg/dL (0.2-1.3)
[2016-06-07 09:18] LABS: Potassium 4.2 mmol/L (3.5-5.1)
--- NOTE | 2016-06-07 11:19 | XR ---
EXAMINATION TYPE: XR chest 2V DATE OF EXAM: 06/07/2016 11:00 AM COMPARISON: 02/08/2015 INDICATION: Infection TECHNIQUE: Frontal and lateral views of the chest are obtained. FINDINGS: The heart size is normal. The pulmonary vasculature is normal. No suspicious infiltrates are present. There is hyperinflation flattening of the diaphragms which can be compatible COPD. IMPRESSION: 1. COPD. 2. An acute process is not identified. Follow-up can be performed as clinically indicated.
[2016-06-07] MEDS: traMADol 50 MG TAB PO PRN (13:11)
[2016-06-07] MEDS: predniSONE 20 MG TAB PO SCH (15:41)
[2016-06-07] MEDS: HYDROmorphone 1 MG/ML 1 ML SYRINGE IVP PRN ×2 (15:43→23:53)
[2016-06-08 06:12] LABS: Basophils % (A) 0 %; CH 30.2; CHCM 30.4; Eosinophils % (A) 0 %; HCT 28.6 % (34.0-46.0); HDW 3.23; HGB 8.9 gm/dL (11.4-16.0); Hypochromasia Marked; Luc # (Auto) 0.02; Luc % (Auto) 1; Lymphocytes # (A) 0.3 k/uL (1.0-4.8); Lymphocytes % (A) 8 %; MCHC 31.1 g/dL (31.0-37.0); MCV 99.9 fL (80.0-100.0); Macrocytosis Slight; Mean Platelet Volume 7.5; Monocytes # (A) 0.1 k/uL (0-1.0); Monocytes % (A) 3 %; Neutrophils # (A) 3.1 k/uL (1.3-7.7); Neutrophils % (A) 88 %; RBC 2.86 m/uL (3.80-5.40); RDW 14.4 % (11.5-15.5); WBC 3.5 k/uL (3.8-10.6); WBC (Perox) 3.79
[2016-06-08 06:23] LABS: Calcium 7.7 mg/dL (8.4-10.2); Potassium 3.9 mmol/L (3.5-5.1); Total Bilirubin 1.9 mg/dL (0.2-1.3); Total Protein 5.3 g/dL (6.3-8.2)
[2016-06-08] MEDS: LEVOTHYROXINE 125 MCG TAB PO SCH (06:43)
[2016-06-08] MEDS: SODIUM CHLORIDE 0.9% 1,000 ML IV SCH ×6 (06:43→15:59)
--- NOTE | 2016-06-08 07:18 | PN ---
DATE OF SERVICE: 06/07/2016 INTERVAL HISTORY: Ms. Carter is an 86-year-old female with a known history of duodenal carcinoma, GI bleed, atrial fibrillation, on anticoagulation with Coumadin, admitted to the hospital with acute blood loss injury and Coumadin coagulopathy. Patient underwent an EGD, showed mucosal oozing as well as duodenal small mass. Biopsies were taken. Otherwise, hemoglobin is stable at this time. Patient developed left foot pain and redness. Patient today complaining of right foot pain as well. Patient will be started on prednisone 40 mg daily and continue the pain management Tramadol and chest x-ray showed no acute cardiopulmonary process. Will continue the fluids and follow up liver enzymes as well which are trending up now. GI is following this patient has well. REVIEW OF SYSTEMS: CONSTITUTIONAL: No fever. No chills. RESPIRATORY: No cough or sputum production. CARDIOVASCULAR: No chest pain or short of breath. ABDOMEN: No nausea, vomiting or abdominal pain. GENITOURINARY: Negative. ENDOCRINE: Negative. PSYCHIATRIC: Negative. SKIN: Negative. All as 14-point review of systems negative except as above. CURRENT MEDICATIONS: Reviewed. PHYSICAL EXAMINATION: An 86-year-old female lying in the bed, comfortable. Awake, alert and oriented x3. Patient in no apparent distress. VITALS: Blood pressure is 129/59, pulse is 85, respirations 18, temperature afebrile, pulse ox 97% on room air. HEENT: Atraumatic, normocephalic. Neck is supple. No JVD. CVS EXAM: S1, S2 heard. No murmurs, no gallop. LUNGS: Bilateral air entry is present. No wheezing. No crackles. Abdomen is soft, nontender. Bowel sounds present. PARTS MANAGER: Awake, alert, oriented x3. No focal neurologic deficits. EXTREMITIES: No edema. Pulses palpable bilaterally, no clubbing or cyanosis. PSYCHIATRIC: Cooperative. MUSCULOSKELETAL: Left foot slight redness on left side of the lateral area. No swelling, tenderness to palpation and no decreased range of motion. PSYCHIATRIC: Cooperative. LABORATORY DATA: WBC 7.5, hemoglobin 9.5, platelets 174. Sodium 140, potassium 4.2, chloride 110, bicarb is 18, BUN 90, creatinine 1.47, liver enzymes are trending up, the ALT 614, AST is 579, alk phos 379, albumin 3.0. IMPRESSION: 1. Acute blood loss anemia secondary to gastrointestinal bleed and slight oozing at the duodenal area and duodenal mass. Follow up on biopsy report. 2. Coumadin coagulopathy, resolved. 3. Left foot gouty arthritis flare. Will start her on prednisone at this time and follow up closely. Continue with the pain management. 4. Elevated liver enzymes. Gastroenterology will be consulted and will consider getting ultrasound of the abdomen and liver. 5. Paroxysmal atrial fibrillation, anticoagulation has been held. This will be restarted since the hemoglobin is stable tomorrow. 6. History of duodenal carcinoma and duodenal ulcer. 7. History of gastrointestinal bleed. 8. History of status post chemotherapy. 9. History of bowel obstruction, status post duodenal stent placement. 10. Hypothyroidism. DISCUSSION AND LUISANA: This 86-year-old female with multiple medical problems and comorbid conditions admitted to the hospital with GI bleed, currently being treated for acute gouty arthritis and elevated liver enzymes and atrial fibrillation with rapid ventricular rate. Anticoagulation will be started tomorrow. Cardiology will be following the patient. Will follow up on liver functions. Continue with the pain management and follow up closely. Further recommendations ( ). Prognosis guarded.
[2016-06-08] MEDS: predniSONE 20 MG TAB PO SCH (08:46)
[2016-06-08] MEDS: LISINOPRIL 20 MG TAB PO SCH (08:46)
[2016-06-08] MEDS: APIXABAN 2.5 MG TABLET PO SCH ×2 (08:46→08:56)
[2016-06-08] MEDS: PANTOPRAZOLE 40 MG/10 ML VIAL IV SCH (08:47)
--- NOTE | 2016-06-08 13:50 | PN ---
DATE OF SERVICE: 06/06/2016 INTERVAL HISTORY: Ms. Carter is an 86-year-old female with known history of duodenal carcinoma, GI bleed and atrial fibrillation, anticoagulated with Coumadin, was admitted to the hospital with Coumadin coagulopathy and low hemoglobin. Patient underwent EGD which showed duodenal mass and oozing mucosa and small ulcer, biopsies were taken. Otherwise, hemoglobin currently stable at this time and patient today complains of left foot pain and redness but no swelling noted. Patient does have history of gout. Patient was taking allopurinol at this time. Uric acid is not elevated. Patient will be continued on pain medication with Tramadol and I will consider starting on prednisone. Otherwise, patient will be started on anticoagulation on Wednesday. Patient denied any complaints of chest pain or short of breath. Otherwise, no acute overnight issues. Patient complains of unable to bear weight on the left foot. REVIEW OF SYSTEMS: CONSTITUTIONAL: No fever. No chills. RESPIRATORY: No cough or sputum production. CARDIOVASCULAR: No chest pain or short of breath. ABDOMEN: No nausea or abdominal pain. GENITOURINARY: Negative. ENDOCRINE: Negative. MUSCULOSKELETAL: Left foot pain. All other 14-point review of systems negative except as above. CURRENT MEDICATIONS: Reviewed. PHYSICAL EXAMINATION: An 86-year-old female, lying in the bed comfortably. Awake, alert, oriented, x3, appears to be in no apparent distress. VITALS: Blood pressure is 143/64, pulse is 82, respiration 18, temperature afebrile, pulse ox 98% on room air. HEENT: Atraumatic, normocephalic, neck is supple. No JVD. CVS EXAM: S1, S2 heard. No murmurs, no gallop. LUNGS: Bilateral air entry is present. No wheezing. No crackles. Nonlabored breathing. Abdomen is soft, nontender. Bowel sounds are present. THERAPY TEACHER: Awake, alert, oriented x3. No focal deficit. Cranial nerves grossly intact. EXTREMITIES: No edema. Pulses palpable bilaterally, no clubbing or cyanosis. Left ankle on the lateral side, slight warmth is present with tenderness to palpation. PSYCHIATRIC: Cooperative. LABORATORY DATA: WBC is 4.8, hemoglobin is 9.4, platelets 173, liver enzymes showed total bilirubin is 2.4. AST 619, ALT is 530, alk phos 368, total protein is 5.3, albumin 2.7. IMPRESSION: 1. Acute blood loss anemia secondary to gastrointestinal bleed. EGD showed duodenal mass with small mucosal oozing, hemoglobin is stable at this time. 2. Left foot pain and ( ) pain. Possible gouty flare-up. Will continue the pain management and consider starting prednisone. 3. Coumadin coagulopathy, resolved now. 4. Paroxysmal atrial fibrillation, anticoagulation has been held. Will be started back as per Cardiology recommendations on Wednesday. 5. History of duodenal ulcer and duodenal adenocarcinoma. Patient on followup with [facility]. 6. Hypertension. 7. History of gastrointestinal bleed. 8. History of bowel obstruction, status post stent placement. 9. Hypothyroidism. DISCUSSION AND PLAN: An 86-year-old female admitted to the hospital with likely blood loss anemia and Coumadin coagulopathy. She is stable at this time, status post EGD. Will continue the pain management for left foot pain. Foot x-rays showed no osseous changes. Will follow up closely and further recommendations based on the clinical course.
[2016-06-08 16:00] VITALS: BP 148/77; PULSE 74; TEMP 98.5
--- NOTE | 2016-06-09 14:34 | CDI ---
In responding to this query, please exercise your independent professional judgment. The [facility] Coding Staff and Clinical Documentation Specialists appreciate your assistance in clarifying documentation, maintaining compliance with coding guidelines, accurately documenting patients condition and capturing severity of illness. The fact that a question is asked does not imply that any particular answer is desired or expected. Communication forms are a method of clarifying documentation and are not made part of the Legal Health Record. Thank you in advance for your clarification. Last Revision, July 2015 Macario Sims [address] [facility] [place] [address] Documentation Clarification Form Date: 06/09/2016 2:16:00 PM From: Janina Jovel Admit Date: 06/01/2016 11:37:00 PM Patient Name: Shannon Carter Visit Number: [id number] Discharge Date: Dr. Sade Hardin Acute Gout is documented in your progress notes. Patient C/O: left foot pain. Patient history/risk factors: Gout, Atrial Fibrillation, Asthma, Thyroid Cancer , Hypertension Clinical indicators: Complains of left foot pain and redness but no swelling noted. 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 Include clinical findings that support your diagnosis. FYI: Press F11 to launch patient chart Place X here if this finding has no clinical significance, is not applicable or if you are not able to provide any additional documentation. 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
--- NOTE | 2016-06-09 22:10 | DS ---
DATE OF ADMISSION: 06/01/2016 DATE OF DISCHARGE: 06/08/2016 DISCHARGE DIAGNOSES: 1. Acute blood loss anemia secondary to gastrointestinal bleed. EGD showed oozing in the duodenal area and duodenal mass; follow up on the biopsy report in the GI clinic. 2. Coumadin coagulopathy on admission, resolved now. 3. Left foot possible gouty arthritis flare; improved with p.o. prednisone. Continue for a total of 5 days. Patient ambulating well at this time. 4. Elevated liver enzymes, trending down. Outpatient followup with Gastroenterology. Ultrasound showed abnormality in the liver. 5. Paroxysmal atrial fibrillation. Anticoagulation has been restarted in the form of Eliquis now. 6. History of duodenal adenocarcinoma and ulcer. 7. Gastroesophageal reflux disease. 8. History of gastrointestinal bleed. 9. History of chemotherapy. 10. History of bowel obstruction, status post duodenal stent placement. 11. Hypothyroidism. 12. Gastroesophageal reflux with ascites. HOSPITAL COURSE: Ms. Carter is an 86-year-old female with multiple medical problems, as discussed above, admitted to hospital with acute blood loss anemia and hemoglobin of 6.4 on admission. Patient was transfused with PRBC and EGD showed duodenal mass and oozing of blood in surrounding area. Hemoglobin is stable at this time. Anticoagulation has been held. Since the hemoglobin is stable, ( ) has been restarted today. Otherwise, patient does have elevated liver enzymes which are trending down now. Patient was also found to have a possible urinary tract infection. Urine culture showed normal genital beth. Patient will be continued on antibiotics for a total of 3 days. Otherwise, Eliquis has been restarted. Patient was restarted on anticoagulation in the form of Eliquis. Coumadin has been stopped since admission. Hemoglobin is stable now. Patient also developed bilateral lower extremity ankle redness and warmth; possible gouty arthritis flare. Patient was started on prednisone 40 mg p.o. daily. Improved now, and patient is ambulating around the hallway. Otherwise, patient is stable to be discharged and followed with the primary care physician. Follow with Dr. Mirian Haley and follow with Cardiology. DISCHARGE PHYSICAL EXAMINATION: Cashey-[id number]-old female lying in bed comfortably, awake, alert, oriented x3. Appears to be in no distress. VITALS: Blood pressure is 148/77. Pulse is 74, respiration 18, temperature afebrile, pulse ox 97% on room air. LABORATORY DATA: Reviewed. Discharge physical examination done. Discharge medications include: 1. Allopurinol 150 mg p.o. daily. 2. Vitamin D2 50,000 units p.o. Wednesday. 3. Advair 1 puff inhalation daily. 4. Levothyroxine 125 mcg p.o. daily. 5. Singulair 10 mg p.o. at bedtime. 6. Raloxifene 60 mg p.o. daily. 7. Xanax 0.25 mg p.o. q.8 hourly p.r.n. for anxiety. 8. Ultram 50 mg p.o. q.6 hourly p.r.n. for pain. 9. Vitamin B12 (Foltx) 1 tablet p.o. daily. 10. Ferrous gluconate 325 mg p.o. t.i.d. 11. Calcium carbonate 500 mg p.o. q.i.d. 12. Eliquis 2.5 mg p.o. b.i.d. 13. Levofloxacin 500 p.o. daily for 3 tablets. 14. Lisinopril 20 mg p.o. daily. 15. Prednisone 40 mg daily for 3 more days. Patient will be discharged home in stable condition. Home with self-care. Activity as tolerated. Follow with Dr. Mirian Haley in one week. Follow with Dr. Zia Jackson in 1 to 2 days. Time taken more than 35 minutes, including 8 minutes counseling the patient and coordinating care. Discussed with the family in detail.
--- NOTE | 2016-07-03 22:09 | DS ---
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
== END 2016-06-08 18:30 | disposition home or self-care (01) | DRG 378 ==
LOC: EC 21:32 → 6SEL 23:37
PROVIDERS: ADMIT Internal Medicine; ATTEND Internal Medicine
PROC: 30233K1 Transfusion of Nonautologous Frozen Plasma into Peripheral Vein, Percutaneous Approach (ICD-10-PCS; 2016-06-02)
PROC: 30233N1 Transfusion of Nonautologous Red Blood Cells into Peripheral Vein, Percutaneous Approach (ICD-10-PCS; 2016-06-03)
PROC: 0W3P8ZZ Control Bleeding in Gastrointestinal Tract, Via Natural or Artificial Opening Endoscopic (ICD-10-PCS; principal; 2016-06-03 12:55)
DX: K92.2 Gastrointestinal hemorrhage, unspecified (principal); C17.0 Malignant neoplasm of duodenum; N17.9 Acute kidney failure, unspecified; R18.8 Other ascites; I48.1 Persistent atrial fibrillation; N18.3 Chronic kidney disease, stage 3 (moderate); N39.0 Urinary tract infection, site not specified; I48.0 Paroxysmal atrial fibrillation; I48.2 Chronic atrial fibrillation; D62 Acute posthemorrhagic anemia; K21.9 Gastro-esophageal reflux disease without esophagitis; I12.9 Hypertensive chronic kidney disease with stage 1 through stage 4 chronic kidney disease, or unspecified chronic kidney disease; T45.515A Adverse effect of anticoagulants, initial encounter; R79.1 Abnormal coagulation profile; E78.5 Hyperlipidemia, unspecified; R74.8 Abnormal levels of other serum enzymes; M10.072 Idiopathic gout, left ankle and foot; M81.0 Age-related osteoporosis without current pathological fracture; J45.909 Unspecified asthma, uncomplicated; E89.0 Postprocedural hypothyroidism; D50.9 Iron deficiency anemia, unspecified; R53.1 Weakness; R93.2 Abnormal findings on diagnostic imaging of liver and biliary tract; M19.90 Unspecified osteoarthritis, unspecified site; F41.9 Anxiety disorder, unspecified; Z96.652 Presence of left artificial knee joint; Z98.42 Cataract extraction status, left eye; Z98.41 Cataract extraction status, right eye; Z92.21 Personal history of antineoplastic chemotherapy; Z96.89 Presence of other specified functional implants; Z79.01 Long term (current) use of anticoagulants; Z87.19 Personal history of other diseases of the digestive system; Z87.11 Personal history of peptic ulcer disease; Z87.440 Personal history of urinary (tract) infections; Z85.850 Personal history of malignant neoplasm of thyroid; Z83.3 Family history of diabetes mellitus; Z88.8 Allergy status to other drugs, medicaments and biological substances; Z88.6 Allergy status to analgesic agent; Z91.02 Food additives allergy status; Z79.810 Long term (current) use of selective estrogen receptor modulators (SERMs); Z79.51 Long term (current) use of inhaled steroids; Z79.899 Other long term (current) drug therapy
CPT/HCPCS: 36415; 43243; 71020; 76700; 76705; 80048; 80053; 80076; 81001; 82272; 83735; 84550; 85025; 85027; 85610; 85730; 86850; 86900; 86901; 86920; 87040; 87086; 94640; 96365; 96366; 96375; 99153; 99285

== ENCOUNTER → 2016-06-01 | Outpatient (CLI) | payer MEDICARE ==
--- NOTE | 2016-06-05 11:54 | US ---
Ultrasound gallbladder HISTORY: Right upper quadrant pain Limited abdomen ultrasound performed. Visualized portions of the pancreas are unremarkable. Liver jacquie ws a somewhat coarse echotexture, liver span is approximately 15 cm. No evident mass. Gallbladder jacquie ws no abnormal luminal echo, there is no wall thickening. Biliary ductal dilatation is not evident, c ommon pelvic not seen definitively. There is no gross ascites. IMPRESSION: Correlate for possible fatty infiltration of the liver, hepatocellular disease. Limited e xam. Consider follow-up.
== END ==
LOC: RADUSYALE 09:06
PROVIDERS: ATTEND Physician Assistant Medical
DX: R10.11 Right upper quadrant pain (principal)
CPT/HCPCS: 76705

== ENCOUNTER 2016-06-18 13:20 | Inpatient (IN) | payer MEDICARE ==
[2016-06-18] MEDS ORDERED: SODIUM CHLORIDE 0.9% 1,000 ML IV STA ×2 (13:42→15:50)
[2016-06-18 13:47] LABS: Glucose,Whole Blood 83 mg/dL (75-99)
[2016-06-18 14:23] LABS: Basophils % (A) 0 %; CH 30.3; CHCM 31.7; Eosinophils # (A) 0.1 k/uL (0-0.7); Eosinophils % (A) 1 %; HCT 31.3 % (34.0-46.0); HGB 9.9 gm/dL (11.4-16.0); Hypochromasia Slight; Luc % (Auto) 2; Lymphocytes # (A) 0.7 k/uL (1.0-4.8); Lymphocytes % (A) 11 %; MCH 30.3 pg (25.0-35.0); MCHC 31.5 g/dL (31.0-37.0); MCV 96.1 fL (80.0-100.0); Mean Platelet Volume 7.2; Monocytes # (A) 0.4 k/uL (0-1.0); Monocytes % (A) 5 %; Neutrophils # (A) 5.3 k/uL (1.3-7.7); Neutrophils % (A) 81 %; RBC 3.25 m/uL (3.80-5.40); RDW 14.7 % (11.5-15.5); WBC 6.6 k/uL (3.8-10.6); WBC (Perox) 6.66
[2016-06-18 14:31] LABS: INR 1.2 (<1.1); Partial Thromboplastin Time 25.7 sec (22.0-30.0); Prothrombin Time 12.2 sec (9.0-12.0)
[2016-06-18 14:33] LABS: Calcium 10.3 mg/dL (8.4-10.2); Phosphorous 3.1 mg/dL (2.5-4.5); Total Bilirubin 4.3 mg/dL (0.2-1.3); Total Protein 6.4 g/dL (6.3-8.2)
--- NOTE | 2016-06-18 14:33 | ED ---
General Adult HPI - General Chief complaint: Syncope Stated complaint: Fall/Syncope Time Seen by Provider: 06/18/16 13:32 Source: patient, RN notes reviewed, old records reviewed Mode of arrival: wheelchair Limitations: no limitations - History of Present Illness Initial comments: This is an 86-year-old female ER status post syncopal event. Patient had an episode tonight where she passed out, she was walking incompletely collapse. Patient's history of CA, blood loss anemia. Patient's denies any nausea vomiting diarrhea no recent fevers no chest pain cough or congestion. No shortness of breath or abdominal pain. Patient does have mild headache from falling and hitting her head. - Related Data Home Medications Medication Instructions Recorded Confirmed Allopurinol [Zyloprim] 150 mg PO DAILY 12/12/13 06/18/16 Ergocalciferol [Vitamin D2 50,000 unit PO CARTY 12/12/13 06/18/16 (DRISDOL)] Fluticasone/Salmeterol [Advair 1 puff INHALATION RT-DAILY 12/12/13 06/18/16 100-50 Diskus] Levothyroxine Sodium [Synthroid] 125 mcg PO DAILY 12/12/13 06/18/16 Montelukast [Singulair] 10 mg PO HS 12/12/13 06/18/16 Raloxifene [Evista] 60 mg PO DAILY 12/12/13 06/18/16 ALPRAZolam [Xanax] 0.25 mg PO Q8HR PRN 10/11/14 06/18/16 B12/Levomefolate Calcium/B-6 1 tab PO DAILY 01/27/16 06/18/16 [Foltx Tablet] Ferrous Gluconate 325 mg PO TID 01/27/16 06/18/16 Calcium Carbonate [Tums] 500 mg PO QID PRN 06/01/16 06/18/16 Previous Rx's Medication Instructions Recorded traMADol HCl [Ultram] 50 mg PO Q6HR PRN #20 tab 01/30/15 Apixaban [Eliquis] 2.5 mg PO BID #60 tablet 06/08/16 Levofloxacin [Levaquin] 500 mg PO DAILY #3 tab 06/08/16 Lisinopril [Zestril] 20 mg PO DAILY #30 tab 06/08/16 predniSONE 40 mg PO DAILY #3 tab 06/08/16 Allergies Allergy/AdvReac Type Severity Reaction Status Date / Time aspirin Allergy Rash/Hives Verified 06/18/16 13:29 red dye Allergy Dyspnea Verified 06/18/16 13:29 metoprolol AdvReac Nausea & Verified 06/18/16 13:29 Vomiting Review of Systems ROS Statement: Those systems with pertinent positive or pertinent negative responses have been documented in the HPI. ROS Other: All systems not noted in ROS Statement are negative. Past Medical History Past Medical History: Atrial Fibrillation, Asthma, Cancer, GERD/Reflux, Hyperlipidemia, Hypertension, Osteoarthritis (OA), Renal Disease, Thyroid Disorder Additional Past Medical History / Comment(s): duodenal getting chemo(last tx 1 week ago, cancer, thyroid cancer 1960, gout, UTI, anemia, uti's (10-11-14 e coli ), bakers cyst lt knee,osteoporosis History of Any Multi-Drug Resistant Organisms: None Reported Past Surgical History: Joint Replacement, Orthopedic Surgery Additional Past Surgical History / Comment(s): JUSTIN CATARACTS, THYROIDECTOMY, ARTHROSCOPY left knee, TOTAL LEFT KNEE, duodenal stent Past Anesthesia/Blood Transfusion Reactions: No Reported Reaction Additional Past Anesthesia/Blood Transfusion Reaction / Comment(s): BLOOD TRANSFUSION 10/12/14 Past Psychological History: Anxiety Smoking Status: Never smoker Past Alcohol Use History: None Reported Past Drug Use History: None Reported - Past Family History Mother Family Medical History: Diabetes Mellitus General Exam Limitations: no limitations General appearance: alert, in no apparent distress Head exam: Present: atraumatic, normocephalic, normal inspection Eye exam: Present: normal appearance, PERRL, EOMI. Absent: scleral icterus, conjunctival injection, periorbital swelling ENT exam: Present: normal exam, mucous membranes moist Neck exam: Present: normal inspection. Absent: tenderness, meningismus, lymphadenopathy Respiratory exam: Present: normal lung sounds bilaterally. Absent: respiratory distress, wheezes, rales, rhonchi, stridor Cardiovascular Exam: Present: regular rate, normal rhythm, normal heart sounds. Absent: systolic murmur, diastolic murmur, rubs, gallop, clicks GI/Abdominal exam: Present: soft, normal bowel sounds. Absent: distended, tenderness, guarding, rebound, rigid Extremities exam: Present: normal inspection, full ROM, normal capillary refill. Absent: tenderness, pedal edema, joint swelling, calf tenderness Back exam: Present: normal inspection Neurological exam: Present: alert, oriented X3, CN II-XII intact Psychiatric exam: Present: normal affect, normal mood Skin exam: Present: warm, dry, intact, normal color. Absent: rash Course Vital Signs 06/18/16 06/18/16 06/18/16 13:24 13:36 14:57 Temperature 98.7 F Pulse Rate 48 L 79 Pulse Rate [ 114 H Machine Heel Seat Laster ] Respiratory 18 14 Rate Blood Pressure 132/61 119/56 O2 Sat by Pulse 98 98 Oximetry - Reevaluation(s) Reevaluation #1: 06/18/16 15:52 Patient is without syncopal event EKG Findings - EKG Comments: EKG Findings:: EKG shows A. fib rate 93, QRS 116, QTC 494 Medical Decision Making - Medical Decision Making 86 female here for evaluation. This patient presents for evaluation of syncope , patient's anemic, weak and dehydrated. Patient admitted for rehydration, evaluation by GI and monitoring of anemia. - Lab Data Result diagrams: 06/18/16 14:08 06/18/16 14:08 Lab Results 06/18/16 06/18/16 06/18/16 Range/Units 13:46 14:08 14:08 WBC 6.6 (3.8-10.6) k/uL RBC 3.25 L (3.80-5.40) m/uL Hgb 9.9 L (11.4-16.0) gm/dL Hct 31.3 L (34.0-46.0) % MCV 96.1 (80.0-100.0) fL MCH 30.3 (25.0-35.0) pg MCHC 31.5 (31.0-37.0) g/dL RDW 14.7 (11.5-15.5) % Plt Count 309 (150-450) k/uL Neutrophils % 81 % Lymphocytes % 11 % Monocytes % 5 % Eosinophils % 1 % Basophils % 0 % Neutrophils # 5.3 (1.3-7.7) k/uL Lymphocytes # 0.7 L (1.0-4.8) k/uL Monocytes # 0.4 (0-1.0) k/uL Eosinophils # 0.1 (0-0.7) k/uL Basophils # 0.0 (0-0.2) k/uL Hypochromasia Slight PT (9.0-12.0) sec INR (<1.1) APTT (22.0-30.0) sec Sodium (137-145) mmol/L Potassium (3.5-5.1) mmol/L Chloride (98-107) mmol/L Carbon Dioxide (22-30) mmol/L Anion Gap mmol/L BUN (7-17) mg/dL Creatinine (0.52-1.04) mg/dL Est GFR (MDRD) Af Amer (>60 ml/min/1.73 sqM) Est GFR (MDRD) Non-Af (>60 ml/min/1.73 sqM) Glucose (74-99) mg/dL POC Glucose (mg/dL) 83 (75-99) mg/dL POC Glu Training Officer ID Michelle Drummond Plasma Lactic Acid Ayaz (0.7-2.0) mmol/L Calcium (8.4-10.2) mg/dL Phosphorus (2.5-4.5) mg/dL Magnesium (1.6-2.3) mg/dL Total Bilirubin (0.2-1.3) mg/dL AST (14-36) U/L ALT (9-52) U/L Alkaline Phosphatase (38-126) U/L Total Creatine Kinase <20 L (30-135) U/L CK-MB (CK-2) 0.5 (0.0-2.4) ng/mL CK-MB (CK-2) Rel Index 0.0 Troponin I 0.022 (0.000-0.034) ng/mL Total Protein (6.3-8.2) g/dL Albumin (3.5-5.0) g/dL Lipase (23-300) U/L Urine Color Urine Appearance (Clear) Urine pH (5.0-8.0) Ur Specific [place] (1.001-1.035) Urine Protein (Negative) Urine Glucose (UA) (Negative) Urine Ketones (Negative) Urine Blood (Negative) Urine Nitrate (Negative) Urine Bilirubin (Negative) Urine Urobilinogen (<2.0) mg/dL Ur Leukocyte Esterase (Negative) 06/18/16 06/18/16 06/18/16 Range/Units 14:08 14:08 14:08 WBC (3.8-10.6) k/uL RBC (3.80-5.40) m/uL Hgb (11.4-16.0) gm/dL Hct (34.0-46.0) % MCV (80.0-100.0) fL MCH (25.0-35.0) pg MCHC (31.0-37.0) g/dL RDW (11.5-15.5) % Plt Count (150-450) k/uL Neutrophils % % Lymphocytes % % Monocytes % % Eosinophils % % Basophils % % Neutrophils # (1.3-7.7) k/uL Lymphocytes # (1.0-4.8) k/uL Monocytes # (0-1.0) k/uL Eosinophils # (0-0.7) k/uL Basophils # (0-0.2) k/uL Hypochromasia PT 12.2 H (9.0-12.0) sec INR 1.2 (<1.1) APTT 25.7 (22.0-30.0) sec Sodium 140 (137-145) mmol/L Potassium 4.0 (3.5-5.1) mmol/L Chloride 98 (98-107) mmol/L Carbon Dioxide 31 H (22-30) mmol/L Anion Gap 11 mmol/L BUN 44 H (7-17) mg/dL Creatinine 1.60 H (0.52-1.04) mg/dL Est GFR (MDRD) Af Amer 37 (>60 ml/min/1.73 sqM) Est GFR (MDRD) Non-Af 30 (>60 ml/min/1.73 sqM) Glucose 98 (74-99) mg/dL POC Glucose (mg/dL) (75-99) mg/dL POC Glu Training Officer ID Plasma Lactic Acid Ayaz 1.4 (0.7-2.0) mmol/L Calcium 10.3 H (8.4-10.2) mg/dL Phosphorus 3.1 (2.5-4.5) mg/dL Magnesium 2.0 (1.6-2.3) mg/dL Total Bilirubin 4.3 H (0.2-1.3) mg/dL AST 282 H (14-36) U/L ALT 338 H (9-52) U/L Alkaline Phosphatase 234 H (38-126) U/L Total Creatine Kinase (30-135) U/L CK-MB (CK-2) (0.0-2.4) ng/mL CK-MB (CK-2) Rel Index Troponin I (0.000-0.034) ng/mL Total Protein 6.4 (6.3-8.2) g/dL Albumin 3.5 (3.5-5.0) g/dL Lipase (23-300) U/L Urine Color Urine Appearance (Clear) Urine pH (5.0-8.0) Ur Specific [place] (1.001-1.035) Urine Protein (Negative) Urine Glucose (UA) (Negative) Urine Ketones (Negative) Urine Blood (Negative) Urine Nitrate (Negative) Urine Bilirubin (Negative) Urine Urobilinogen (<2.0) mg/dL Ur Leukocyte Esterase (Negative) 06/18/16 06/18/16 Range/Units 14:08 14:20 WBC (3.8-10.6) k/uL RBC (3.80-5.40) m/uL Hgb (11.4-16.0) gm/dL Hct (34.0-46.0) % MCV (80.0-100.0) fL MCH (25.0-35.0) pg MCHC (31.0-37.0) g/dL RDW (11.5-15.5) % Plt Count (150-450) k/uL Neutrophils % % Lymphocytes % % Monocytes % % Eosinophils % % Basophils % % Neutrophils # (1.3-7.7) k/uL Lymphocytes # (1.0-4.8) k/uL Monocytes # (0-1.0) k/uL Eosinophils # (0-0.7) k/uL Basophils # (0-0.2) k/uL Hypochromasia PT (9.0-12.0) sec INR (<1.1) APTT (22.0-30.0) sec Sodium (137-145) mmol/L Potassium (3.5-5.1) mmol/L Chloride (98-107) mmol/L Carbon Dioxide (22-30) mmol/L Anion Gap mmol/L BUN (7-17) mg/dL Creatinine (0.52-1.04) mg/dL Est GFR (MDRD) Af Amer (>60 ml/min/1.73 sqM) Est GFR (MDRD) Non-Af (>60 ml/min/1.73 sqM) Glucose (74-99) mg/dL POC Glucose (mg/dL) (75-99) mg/dL POC Glu Training Officer ID Plasma Lactic Acid Ayaz (0.7-2.0) mmol/L Calcium (8.4-10.2) mg/dL Phosphorus (2.5-4.5) mg/dL Magnesium (1.6-2.3) mg/dL Total Bilirubin (0.2-1.3) mg/dL AST (14-36) U/L ALT (9-52) U/L Alkaline Phosphatase (38-126) U/L Total Creatine Kinase (30-135) U/L CK-MB (CK-2) (0.0-2.4) ng/mL CK-MB (CK-2) Rel Index Troponin I (0.000-0.034) ng/mL Total Protein (6.3-8.2) g/dL Albumin (3.5-5.0) g/dL Lipase 534 H (23-300) U/L Urine Color Yellow Urine Appearance Clear (Clear) Urine pH 8.0 (5.0-8.0) Ur Specific [place] 1.006 (1.001-1.035) Urine Protein Trace H (Negative) Urine Glucose (UA) Negative (Negative) Urine Ketones Negative (Negative) Urine Blood Negative (Negative) Urine Nitrate Negative (Negative) Urine Bilirubin Negative (Negative) Urine Urobilinogen <2.0 (<2.0) mg/dL Ur Leukocyte Esterase Negative (Negative) - Radiology Data Radiology results: report reviewed, image reviewed Disposition Clinical Impression: Vasovagal syncope, Acute renal failure, Duodenal adenocarcinoma, Anemia Disposition: ADMITTED IP TO THIS HOSP Condition: Fair Referrals: Zia Jackson DO [Primary Care Provider] - 1-2 days
[2016-06-18 14:35] LABS: Appearance,Urine Clear (Clear); Bilirubin,Urine Negative (Negative); Glucose,Urine (UA) Negative (Negative); Ketones,Urine Negative (Negative); Leukocyte Esterase,Urine Negative (Negative); Nitrite,Urine Negative (Negative); Protein,Urine Trace (Negative); Specific Gravity,Urine 1.006 (1.001-1.035); UA Billing (MACRO vs. MICRO) CHEM; Urobilinogen,Urine <2.0 mg/dL (<2.0)
[2016-06-18 14:47] LABS: Creatine Kinase <20 U/L (30-135)
--- NOTE | 2016-06-18 14:54 | XR ---
EXAMINATION TYPE: XR chest 2V DATE OF EXAM: 06/18/2016 2:47 PM COMPARISON: 06/07/2016 HISTORY: Weakness FINDINGS: The lungs are clear and there is no pneumothorax, pleural effusion, or focal pneumonia. Heart size i s stable. Hyperinflation suggests COPD. Mild wedge deformity midthoracic spine appears chronic. Moder ate wedge deformity thoracolumbar junction is stable. IMPRESSION: 1. No acute process.
[2016-06-18 15:00] LABS: Creatine Kinase MB 0.5 ng/mL (0.0-2.4); Troponin I 0.022 ng/mL (0.000-0.034)
--- NOTE | 2016-06-18 15:09 | CT ---
EXAMINATION TYPE: CT brain cspine wo con DATE OF EXAM: 06/18/2016 2:43 PM COMPARISON: Prior CT brain 08 February 2015 HISTORY: Patient fell today. Patient denies head and neck complaints at time of study. CT DLP: 1442 mGycm Automated exposure control for dose reduction was used. TECHNIQUE: CT scan of the head and cervical spine are performed without contrast. FINDINGS: There is no acute intracranial hemorrhage, mass effect, or midline shift identified. The ventricles and sulci are within normal limits in size. Cerebral vascular calcifications are present . White matter demyelination change in the periventricular locations again noted. The globes are inta ct and the visualized sinuses are clear. Cervical spine is visualized in its entirety from C1 through upper thoracic levels and demonstrates s atisfactory alignment , minimal anterolisthesis grade 1 C4-5 likely due to facet arthropathy. There i s no evidence of acute fracture or dislocation. Loss of disc height present at C3-4, C5-6 and C6-7, C7-T1, there is multilevel spondylosis. Multilevel foraminal encroachment is present. Prevertebral so ft tissue appears within normal limits. The C1-C2 articulation is unremarkable. IMPRESSION: 1. There is no acute fracture or dislocation evident in the cervical spine. 2. No acute intracranial hemorrhage, mass effect, or midline shift is seen.
[2016-06-18] MEDS ORDERED: RX INFO: IV CONTRAST WAS GIVEN 1 EACH MISC MISCELLANE PRN (15:18)
[2016-06-18] MEDS ORDERED: SODIUM CHLORIDE 0.9% 1,000 ML IV ONE (15:48)
[2016-06-18] MEDS ORDERED: MORPHINE SULFATE 4 MG/ML SYRINGE IVP STA (16:44)
[2016-06-18] MEDS ORDERED: MORPHINE SULFATE 4 MG/ML SYRINGE IVP PRN (16:44)
[2016-06-18] MEDS: MONTELUKAST 10 MG TAB PO SCH (20:00)
--- NOTE | 2016-06-19 18:44 | HP ---
DATE OF ADMISSION: Patient is an 86-year-old pleasant female who came in after a syncopal episode. Patient denied any seizure-like activity, tongue-biting or loss of bowel or bladder incontinence or postictal syncope. Patient's event appears to have lasted a few seconds. The patient has a history of gastric cancer. Patient had a stent in the past. Patient had a GI bleed. Patient also has a history of atrial fibrillation. Patient is on Eliquis for that. Patient was discharged last month when she came in with a GI bleed. Coumadin was discontinued and patient was started on Eliquis. Patient denied any GI bleed at this point of time. Denied any hematemesis or dark stools. The patient did have a syncopal episode. Patient appears to be a bit dehydrated with elevated creatinine of around 1.6. Her baseline creatinine appears to be around 1.2. Patient is on IV fluids which are being continued. BUN of 44. Patient's calcium is minimally elevated to 10.2 because of the cancer. There was a concern that patient may have a GI bleed, although patient denies any such symptoms. Patient's hemoglobin during her last hospitalization was 9.2; now 9.9. I did obtain a TSH level, which is elevated. Patient is on 125 of levothyroxine; I increased it to 150. Patient denied any cough, congestion, chest pain. Patient denied diarrhea, nausea, vomiting. Patient was recently started on levofloxacin; patient is not sure why she is on levofloxacin; probably because of what appears like COPD, as patient was also on prednisone. Levofloxacin does prolong QT and can lead to syncopal episodes. Patient already has a baseline prolonged QT. EKG showed sinus rhythm with some right bundle branch block pattern; otherwise there are some nonspecific ST-T wave changes. Home medications include: 1. Allopurinol. 2. Ergocalciferol. 3. Fluticasone. 4. Fomoterol. 5. Levothyroxine. 6. Montelukast. 7. Raloxifene. 8. Alprazolam. 9. B12 supplementation. 10. Ferrous gluconate. 11. Calcium carbonate. 12. Tramadol. 13. Apixaban. 14. Levofloxacin. 15. Lisinopril. 16. Prednisone. ALLERGIES: ASPIRIN and METOPROLOL. REVIEW OF SYSTEMS: CONSTITUTIONAL: No fever, no malaise, no fatigue. HEENT: No recent visual problems or hearing problems. Denied any sore throat. CARDIOVASCULAR: As described in HPI. PULMONARY: No shortness of breath, no cough, no hemoptysis. GASTROINTESTINAL: No diarrhea, no nausea, no vomiting, no abdominal pain. Normoactive bowel sounds. NEUROLOGICAL: No headaches, no weakness, no numbness. HEMATOLOGICAL: Denies any bleeding or petechiae. GENITOURINARY: Denies any burning micturition, frequency, or urgency. MUSCULOSKELETAL/RHEUMATOLOGICAL: Denies any joint pain, swelling, or any muscle pain. ENDOCRINE: Denies any polyuria or polydipsia. The rest of the 14 point review of systems is negative. PAST MEDICAL HISTORY: 1. Atrial fibrillation. 2. Duodenal cancer. 3. History of asthma. 4. Gastroesophageal reflux disease. 5. Hyperlipidemia. 6. Hypertension. 7. Osteoarthritis. 8. Hypothyroidism. 9. 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 Patient is actively getting chemotherapy. Patient has had joint replacement surgery and orthopedic surgery. Patient had a recent duodenal stent in the past and recent blood transfusions and GI bleed, although patient denied such events at this point of time. SOCIAL HISTORY: Patient denied any smoking, alcohol abuse or any drug abuse. FAMILY HISTORY: Diabetes mellitus. In hCG. PHYSICAL EXAMINATION: VITAL SIGNS: Temperature 97.6, pulse of 76, respiratory rate of 16. Blood pressure is 128/67. Saturating at 92% on room air. GENERAL: The patient is alert and oriented x3, not in any acute distress. Well developed, well nourished. HEENT: Pupils are round and equally reacting to light. EOMI. No scleral icterus. No conjunctival pallor. Normocephalic, atraumatic. No pharyngeal erythema. No thyromegaly. CARDIOVASCULAR: S1 and S2 present. No murmurs, rubs, or gallops. PULMONARY: Chest is clear to auscultation, no wheezing or crackles. ABDOMEN: Soft, nontender, nondistended, normoactive bowel sounds. No palpable organomegaly. MUSCULOSKELETAL: No joint swelling or deformity. EXTREMITIES: No cyanosis, clubbing, or pedal edema. NEUROLOGICAL: Gross neurological examination did not reveal any focal deficits. SKIN: No rashes. LABORATORY DATA: CBC, CMP are abnormal for mildly elevated bilirubin at 4.3. AST is 282. ALT is 338. Patient had similar labs during her previous hospitalization. At that time ultrasound was within normal limits. I do not see any hepatitis panel. TSH is 25. T4 is essentially within normal limits. Lipase is 534, which is a nonspecific elevation. Chest x-ray, cervical spine CT are essentially within normal limits. ASSESSMENT AND PLAN: 1. Syncopal episode; unsure about the exact etiology. Patient will be monitored on security inspector. I do not see an echocardiogram. I will go ahead and order an echocardiogram. Acute renal failure, which I believe has contributed to her syncopal episode, or being on levofloxacin ( ) as well. Levofloxacin will be discontinued. Lisinopril will be discontinued. Patient will be continued on IV fluids. Other thing that may have contributed to her syncopal episode is atrial fibrillation, because of which I will go ahead and consult Cardiology. Eliquis will be continued. 2. Atrial fibrillation, at present rate-controlled. Patient is in sinus rhythm at this point of time. 3. History of recent gastrointestinal bleed. Patient does not have any active GI bleed at this point of time. 4. Patient has a duodenal stent and duodenal cancer, for which patient is actively receiving chemotherapy. 5. Mildly elevated liver enzymes. Will trend them tomorrow. As her recent ultrasound did not show any significant abnormality, I will not repeat an ultrasound. If patient's liver enzymes do not come down, I will obtain a hepatitis panel tomorrow. 6. Gastroesophageal reflux disease. 7. Hypothyroidism. I am increasing levothyroxine because of above-mentioned reasons. 8. Asthma without any acute exacerbation. At this point of time I do not believe patient has bronchitis. Levofloxacin will be discontinued. 9. Possible acute renal failure due to intravascular volume depletion. Continue with the IV fluids. Hold off on lisinopril. Consult Cardiology. Patient's primary care physician is Dr. Zia Jackson. Will also obtain a PT and OT consultation.
[2016-06-19] MEDS: SYMBICORT 80-4.5 MCG INHALER INHALATION SCH (19:21)
[2016-06-19] MEDS: MONTELUKAST 10 MG TAB PO SCH (20:31)
[2016-06-19] MEDS: APIXABAN 2.5 MG TABLET PO SCH (20:31)
[2016-06-20] MEDS: traMADol 50 MG TAB PO PRN ×2 (01:57→08:11)
[2016-06-20] MEDS: CALCIUM CARBONATE 500 MG CHEWABLE PO PRN (03:03)
[2016-06-20] MEDS: LEVOTHYROXINE 75 MCG TAB PO SCH (06:13)
[2016-06-20] MEDS ORDERED: LEVOTHYROXINE 125 MCG TAB PO SCH (06:30)
[2016-06-20 06:44] LABS: Calcium 8.1 mg/dL (8.4-10.2); Potassium 4.2 mmol/L (3.5-5.1); Total Bilirubin 3.3 mg/dL (0.2-1.3)
[2016-06-20 06:45] LABS: CH 29.8; HDW 2.78; Hypochromasia Marked; MCH 30.5 pg (25.0-35.0); MCHC 30.5 g/dL (31.0-37.0); MCV 99.9 fL (80.0-100.0); Macrocytosis Slight; Mean Platelet Volume 7.8; RDW 14.8 % (11.5-15.5); WBC 5.4 k/uL (3.8-10.6)
[2016-06-20] MEDS ORDERED: ARTIFICIAL TEARS-HYPROMELLOSE DROPS 15 ML BTL BOTH EYES PRN (07:05)
[2016-06-20] MEDS: SYMBICORT 80-4.5 MCG INHALER INHALATION SCH ×2 (07:36→20:08)
[2016-06-20] MEDS: APIXABAN 2.5 MG TABLET PO SCH (08:09)
[2016-06-20] MEDS: ALLOPURINOL 300 MG TAB PO SCH (08:09)
[2016-06-20] MEDS: predniSONE 20 MG TAB PO SCH ×2 (08:10→08:14)
[2016-06-20] MEDS: RALOXIFENE 60 MG TAB PO SCH (08:10)
--- NOTE | 2016-06-20 08:34 | ECHOF ---
Referral Reason:syncope MEASUREMENTS -------- HEIGHT: 157.5 cm WEIGHT: 65.8 kg BP: 128/67 RVIDd: 3.2 cm (< 3.3) IVSd: 1.2 cm (0.6 - 1.1) LVIDd: 4.3 cm (3.9 - 5.3) LVPWd: 1.2 cm (0.6 - 1.1) IVSs: 1.6 cm LVIDs: 3.2 cm LVPWs: 1.6 cm LA Diam: 3.9 cm (2.7 - 3.8) LAESV Index (A-L): 45.26 ml/m Ao Diam: 2.7 cm (2.0 - 3.7) AV Cusp: 2.3 cm (1.5 - 2.6) MV EXCURSION: 20.824 mm (> 18.000) MV EF SLOPE: 120 mm/s (70 - 150) EPSS: 0.8 cm AR PHT: 393 ms RAP: 15.00 mmHg RVSP: 43.21 mmHg FINDINGS -------- Atrial fibrillation. This was a technically good study. The left ventricular size is normal. There is borderline concentric left ventricular hypertrophy. Overall left ventricular systolic function is normal with, an EF between 55 - 60 %. The right ventricle is normal in size and function. LA is severely dilated >40 ml/m2 The right atrium is normal in size. Aortic valve is trileaflet and is mildly thickened. There is mild aortic regurgitation. The mitral valve leaflets are mildly thickened. Mild mitral annular calcification present. Mild mitral regurgitation is present. Mild tricuspid regurgitation present. There is mild pulmonary hypertension. The right ventricular systolic pressure, as measured by Doppler, is 43.21mmHg. The pulmonic valve was not well visualized. The aortic root size is normal. The inferior vena cava is dilated with no significant inspiratory collapse which is consistent estimated right atrial pressure of >20 mmHg. There is no pericardial effusion. CONCLUSIONS -------- 1. Atrial fibrillation. 2. There is mild aortic regurgitation. 3. The mitral valve leaflets are mildly thickened. 4. Mild mitral annular calcification present. 5. Mild mitral regurgitation is present. 6. Mild tricuspid regurgitation present. 7. There is mild pulmonary hypertension. 8. The right ventricular systolic pressure, as measured by Doppler, is 43.21mmHg. 9. The pulmonic valve was not well visualized. 10. The aortic root size is normal. 11. The inferior vena cava is dilated with no significant inspiratory collapse which is consistent estimated right atrial pressure of >20 mmHg. 12. This was a technically good study. 13. There is no pericardial effusion. 14. The left ventricular size is normal. 15. There is borderline concentric left ventricular hypertrophy. 16. Overall left ventricular systolic function is normal with, an EF between 55 - 60 %. 17. The right ventricle is normal in size and function. 18. LA is severely dilated >40 ml/m2 19. The right atrium is normal in size. 20. Aortic valve is trileaflet and is mildly thickened. COIL WRAPPER: Maki Schmidt RDCS
[2016-06-20] MEDS: CYANOCOBALAMIN-FA-PYRIDOXINE 1 EACH TAB PO SCH ×2 (11:10→11:12)
--- NOTE | 2016-06-20 11:41 | CONS ---
DATE OF CONSULTATION: CHIEF COMPLAINT: Syncope. Shannon is an 86-year-old lady with history of duodenal cancer, status post chemotherapy and stenting, history of GI bleed, history of atrial fibrillation who comes to the hospital having had an episode of syncope. She states that she was sitting in a chair and bending forward and suddenly passed out. She did not have focal neurological deficits. Did not have bladder or bowel incontinence. Since coming in, she is doing well and has not had any episodes of syncope. Patient was anemic on presentation, the hemoglobin had dropped further. Her syncope could be related to the anemia. The patient does not have any active bleeding. Does not have melena. Does not have hematemesis. Her rhythm strip shows that she is in atrial fibrillation with controlled ventricular rate as does the EKG. Given the episodes of anemia and drop in hemoglobin while on Eliquis, she is not an optimal candidate for anticoagulation. She was supposed to have cardioversion on Wednesday, which will be canceled at this time. Past medical history is significant for atrial fibrillation, duodenal cancer, asthma, gastroesophageal reflux disease, hypertension, dyslipidemia, osteoarthritis, hypothyroidism and renal insufficiency. Current medications include levothyroxine, Xanax, B12, calcium, tramadol, lisinopril, prednisone. Allergic to ASPIRIN and METOPROLOL. Family history is negative for premature coronary artery disease. Social history is negative for smoking, EtOH abuse, or drug abuse. REVIEW OF SYSTEMS: HEENT: Unremarkable. CARDIAC: As described above. RESPIRATORY: As described above. GI: As described above. GENITOURINARY: Negative. ALLERGIES/IMMUNOLOGICAL: Negative. MUSCULOSKELETAL: Negative. ENDOCRINE: Negative. HEMATOLOGIC: Negative. DERM: Negative. CONSTITUTIONAL: Negative. The rest of the system review is not relevant. On exam, patient is comfortable at rest, afebrile. Heart rate is 77, blood pressure is 113/55, respiratory rate 18, O2 sat is 99%. There is no jugular venous distention. Carotid upstroke is normal. There is no bruit. Chest exam reveals good air entry bilaterally. I do not hear any crackles or rhonchi. Heart exam reveals first and second heart sounds, irregular rhythm. No murmur. Abdomen is soft, nontender. Exam of the extremities did not reveal edema. Peripheral pulses are felt. Labs show a hemoglobin of 7, platelet count is 174. BUN is 34. Creatinine is 1.4. Echocardiogram was done yesterday and shows normal LV function. ASSESSMENT: 1. Syncope probably related to anemia. 2. Chronic atrial fibrillation with controlled ventricular rate. PLAN: She is not a candidate for Eliquis. Will watch her on telemetry. Agree with the blood transfusion and patient may need GI workup.
[2016-06-20] MEDS: MONTELUKAST 10 MG TAB PO SCH (20:50)
[2016-06-21] MEDS: traMADol 50 MG TAB PO PRN (00:42)
[2016-06-21] MEDS: ALPRAZolam 0.25 MG TAB PO PRN ×2 (00:46→20:48)
[2016-06-21] MEDS: LEVOTHYROXINE 75 MCG TAB PO SCH (06:13)
[2016-06-21 06:30] LABS: Basophils % (A) 1 %; CH 30.8; CHCM 31.1; Eosinophils # (A) 0.1 k/uL (0-0.7); Eosinophils % (A) 2 %; HCT 25.1 % (34.0-46.0); HDW 3.21; HGB 7.6 gm/dL (11.4-16.0); Hypochromasia Moderate; Luc # (Auto) 0.05; Luc % (Auto) 1; Lymphocytes # (A) 0.6 k/uL (1.0-4.8); Lymphocytes % (A) 11 %; MCH 30.1 pg (25.0-35.0); MCHC 30.1 g/dL (31.0-37.0); MCV 99.7 fL (80.0-100.0); Macrocytosis Slight; Monocytes # (A) 0.3 k/uL (0-1.0); Monocytes % (A) 5 %; Neutrophils # (A) 4.2 k/uL (1.3-7.7); Neutrophils % (A) 81 %; RBC 2.52 m/uL (3.80-5.40); RDW 15.2 % (11.5-15.5); WBC 5.3 k/uL (3.8-10.6); WBC (Perox) 5.53
[2016-06-21 06:51] LABS: Calcium 8.3 mg/dL (8.4-10.2); Potassium 4.3 mmol/L (3.5-5.1)
[2016-06-21] MEDS: SYMBICORT 80-4.5 MCG INHALER INHALATION SCH ×2 (08:28→19:42)
[2016-06-21] MEDS: predniSONE 20 MG TAB PO SCH (08:31)
[2016-06-21] MEDS: CYANOCOBALAMIN-FA-PYRIDOXINE 1 EACH TAB PO SCH (08:31)
[2016-06-21] MEDS: ALLOPURINOL 300 MG TAB PO SCH (08:32)
[2016-06-21] MEDS: RALOXIFENE 60 MG TAB PO SCH (08:32)
--- NOTE | 2016-06-21 10:16 | PN ---
Shannon is an 86-year-old lady who was admitted to hospital with syncope, probably secondary to anemia. Since admission, she is doing well, has not had any episodes of chest pain or shortness of breath, but continues to feel fatigued and tired. On an echocardiogram, she had normal LV function. Remains in A. fib with controlled ventricular rate and is no longer on a blood thinner because of the GI bleed. Hemoglobin this morning is 7.6 that is after a unit of blood yesterday. On exam, comfortable at rest. Vital signs are stable. There is no jugular venous distention. Chest exam reveals good air entry bilaterally. Heart exam reveals first and second heart sounds. No gallop. Exam of the extremities did not reveal edema. Peripheral pulses are felt. ASSESSMENT: 1. Atrial fibrillation with controlled ventricular rate. The patient is not a candidate for anticoagulation because of gastrointestinal bleed. 2. Anemia probably secondary to gastrointestinal blood loss. Continue with the supportive care.
--- NOTE | 2016-06-21 11:40 | PN ---
INTERVAL HISTORY: Ms. Carter is an 86-year-old female with past medical history of atrial fibrillation, duodenal cancer, asthma, GERD, hypertension, hyperlipidemia, osteoarthritis, hypothyroidism, admitted to the hospital with a chief complaint of syncope. Patient had a syncopal episode which lasted for a few seconds. At the time of admission the patient's labs found low hemoglobin at 9.9 and repeat one this morning showed a hemoglobin of 7. The patient was not having any active bleeding. The patient due to drop in her hemoglobin, the patient's Eliquis has been discontinued for now. Patient did receive a unit of blood transfusion. Today, the patient is lying in bed, appears to be in no acute distress. She states that she is feeling much better in terms of her dizziness. Patient complains of some discomfort at the base of her skull but no headaches. It is just a discomfort that she has. Denies having any blurring of vision or focal neurological deficits. Her speech has been normal and the patient denies having any chest pain, any difficulty in breathing. No blood in her stools. Patient's medications have been reviewed. She is on: 1. Allopurinol. 2. Xanax. 3. Symbicort. 4. Calcium carbonate. 5. Folic acid. 6. Synthroid. 7. Singulair. 8. Prednisone. 9. Evista. 10. Tramadol. On her vital signs: temperature 97.7, heart rate 93, respiratory rate 16, blood pressure 140/69, saturating at 99% on room air. GENERAL EXAMINATION: Elderly female in lying in bed, appears to be no acute distress. HEAD: Atraumatic, normocephalic. EYES: Pupils round, mild pallor. No icterus. NECK: No JVD. No thyromegaly. CARDIOVASCULAR: S1, S2 heard. PULMONARY: Chest is clear to auscultation. No wheezing or crackles. ABDOMEN: Soft, nontender, normal bowel sounds, no organomegaly. Musculoskeletal: No joint swelling, or deformity. EXTREMITIES: No cyanosis, no clubbing, no pedal edema. NEUROLOGICAL: CLOTH BALE HEADER: Alert, awake and oriented times 3. No focal deficits. Patient's labs: White count of 5.4, hemoglobin is 7. Platelets 174. Sodium 141, potassium 4.2, chloride 108, bicarb 26, BUN 34, creatinine 1.43, AST 224, ALT 282, alkaline phosphatase 189. ASSESSMENT AND PLAN: 1. Syncopal episode secondary to acute anemia. 2. Acute anemia, unclear etiology, but hemoglobin dropped from 9.9 to 7. No evidence of active bleeding. Patient's anticoagulation has been discontinued as per cardiology recommendations for now. 3. Atrial fibrillation rate controlled. 4. History of recent gastrointestinal bleed. 5. History of duodenal stent and duodenal cancer for which the patient is actively receiving chemotherapy. 6. Mildly elevated liver enzymes and we will get a hepatitis panel. 7. Gastroesophageal reflux disease. 8. Hypothyroidism. 9. Asthma. 10. Acute kidney injury, most likely secondary to dehydration and hypovolemia. Continue with IV fluids and hold off Lisinopril. PLAN: As the patient acutely dropped her hemoglobin. Patient's anticoagulation have been on hold. Patient did receive 1 unit of blood transfusion. In view of her duodenal cancer and low hemoglobin we will consult gastroenterology. Further recommendations to follow depending on the progress of the patient. Overall prognosis is guarded. MTDD
--- NOTE | 2016-06-21 17:16 | CT ---
EXAMINATION TYPE: CT abdomen pelvis wo con DATE OF EXAM: 06/21/2016 4:30 PM COMPARISON: 11/22/2014 HISTORY: 86-year-old female with abdominal pain and jaundice. The comparison exam states a history of duodenal adenocarcinoma. CT DLP: 265.3 mGycm. Automated exposure control for dose reduction was used. TECHNIQUE: Contiguous axial scanning of the abdomen and pelvis without IV contrast. Coronal and sagit norma reconstructions performed. FINDINGS: Heart is upper limits of normal in size with small basilar pericardial effusion. There is a small hia norma hernia and trace left pleural effusion with adjacent atelectasis. These noncontrast images suggest intrahepatic biliary ductal dilatation and dilatation of the bile du ct at approximately 1 cm, coronal image 39. There is a metallic stent centered along the second portion of the duodenum oriented vertically. Ther e is material within the stent and the inferior aspect of the stent sharply abuts the junction of the second and third portions of the duodenum, refer to coronal image 38 and axial image 31 for some rep resentative images. A lymph node anterior to the pancreatic head is mildly enlarged at 1.1 cm. Diffic ult to delineate the duodenum from pancreas on this noncontrast study Scattered calcified granulomas within both the liver and spleen. The gallbladder is hydropic measuring 5.1 cm wide. No pericholecystic inflammatory change. Adrenal glands within normal limits. A 3.4 cm posterior left renal cyst shows interval increase in si ze. Right kidney is again noted slightly malrotated. Noncontrast appearance of the pancreas shows no discrete abnormality. No dilated small bowel, free fluid, or free air. Normal appendix. Moderate stool particularly in the right hemicolon without pericolonic inflammatory change. Bladder is urine distended. Uterus and ovaries are visualized. No abnormal fluid collection in the pe lvis or pelvic lymphadenopathy seen. Mild pelvic floor relaxation. Bones: Degenerative changes of the hips and degenerated levoconvex scoliotic curvature of the lumbar spine. 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 IMPRESSION: 1. A metallic stent situated along the second portion of the duodenum oriented vertically. There is material which fills the stent that could represent ingested material or tumor. There is no proximal bowel obstruction of the stomach. 2. The inferior aspect of the stent sharply abuts the junction of the second and third portion of th e duodenum as it makes its leftward turn. Refer to coronal image 38 for a claims service representative image. 3. Intrahepatic and extrahepatic biliary ductal dilatation. Distal obstruction at the ampulla or duo denum not excluded. 4. The gallbladder is also hydropic probably due to the biliary obstruction. 5. Trace left pleural effusion is new. Small hiatal hernia.
[2016-06-21] MEDS: MONTELUKAST 10 MG TAB PO SCH (20:48)
--- NOTE | 2016-06-22 01:24 | P.CONS ---
History of Present Illness - Reason for Consult Consult date: 06/21/16 - History of Present Illness The patient is an 86-year-old female who is admitted for syncope. 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 Patient was brought to the ER and was admitted because of syncope. The patient was hospitalized last month for GI bleeding and was transfused. She underwent EGD with epinephrine injection to multiple sites along the duodenal sweep. There was no history of GI bleeding this time. Her Hb is not different than her Hb last month which is around 9.0 Review of Systems Constitutional: Denied fever, chills or unintentional weight loss Neurologic: No headahes, double vision or sensory or motor changes Cardiopulmonary: No chest pains, SOB or palpitations Gastrointestinal: See PI above Genitourinary: No hematuria, dysuria or frequency Endocrine: No polyphagia or polydypsia Hematology: No bleeding tendency or bruising Skin: No rashes Psychiatric: No anxiety or depression Past Medical History Past Medical History: Atrial Fibrillation, Asthma, Cancer, GERD/Reflux, Hyperlipidemia, Hypertension, Osteoarthritis (OA), Renal Disease, Thyroid Disorder Additional Past Medical History / Comment(s): duodenal getting chemo(last tx August 2015), cancer, thyroid cancer 1960, gout, UTI, anemia, uti's (10-11-14 e coli), bakers cyst lt knee,osteoporosis History of Any Multi-Drug Resistant Organisms: None Reported Past Surgical History: Joint Replacement, Orthopedic Surgery Additional Past Surgical History / Comment(s): JUSTIN CATARACTS, THYROIDECTOMY, ARTHROSCOPY left knee, TOTAL LEFT KNEE, duodenal stent Past Anesthesia/Blood Transfusion Reactions: No Reported Reaction Additional Past Anesthesia/Blood Transfusion Reaction / Comm: BLOOD TRANSFUSION 10/12/14 Past Psychological History: Anxiety Smoking Status: Never smoker Past Alcohol Use History: None Reported Past Drug Use History: None Reported - Past Family History Mother Family Medical History: Diabetes Mellitus Medications and Allergies Home Medications Medication Instructions Recorded Confirmed Type Allopurinol [Zyloprim] 150 mg PO DAILY 12/12/13 07/17/16 History Levothyroxine Sodium [Synthroid] 125 mcg PO DAILY 12/12/13 07/17/16 History Montelukast [Singulair] 10 mg PO HS 12/12/13 07/17/16 History Raloxifene [Evista] 60 mg PO DAILY 12/12/13 07/17/16 History ALPRAZolam [Xanax] 0.25 mg PO Q8HR PRN 10/11/14 07/17/16 History Calcium Carbonate [Tums] 500 mg PO QID PRN 06/01/16 07/17/16 History Allergies Allergy/AdvReac Type Severity Reaction Status Date / Time aspirin Allergy Rash/Hives Verified 07/17/16 15:51 red dye Allergy Dyspnea Verified 07/17/16 15:51 metoprolol AdvReac Nausea & Verified 07/17/16 15:51 Vomiting Physical Exam Vitals: Vital Signs Temp Pulse Pulse Pulse Resp BP BP 06/21/16 19:44 06/21/16 14:56 97.6 F 68 18 06/21/16 14:49 17 06/21/16 11:24 80 17 112/65 06/21/16 09:15 85 86 80 128/60 122/65 06/21/16 08:00 97.7 F 75 17 06/21/16 03:19 97.3 F L 68 16 116/62 06/20/16 23:38 99 F 76 16 BP BP Pulse Ox 06/21/16 19:44 97 06/21/16 14:56 112/66 06/21/16 14:49 06/21/16 11:24 06/21/16 09:15 120/67 06/21/16 08:00 108/48 06/21/16 03:19 99 06/20/16 23:38 122/53 97 Intake and Output 06/21/16 06/21/16 06/22/16 14:59 22:59 06:59 Intake Total 180 222 Balance 180 222 Intake: Oral 180 222 Other: Voiding Method Bedside Commode # Voids 1 2 # Bowel Movements 1 General appearance: The patient is alert, oriented, in no acute distress. HET: Head is normocephalic and atraumatic. Pupils are equal and reactive. Oropharynx is clear without lesions. Neck: Supple without lymphadenopathy. Trachea midline. Heart: S1 S2. Regular rate and rhythm. Lungs: No crackles or wheezes are heard. Abdomen: Soft, diffuse upper epigastric pain, nondistended with bowel sounds. No peritoneal signs. No palpable organomegaly or masses. Extremities: Normal skin color and turgor. No cyanosis, rash, ulceration, clubbing, or edema. Radial and pedal pulses are 2/4 bilaterally. Neurological: No focal deficits. Strength and sensation are grossly intact. Results CBC & Chem 7: 06/26/16 06:08 06/25/16 06:53 Labs: Abnormal Lab Results - Last 24 Hours (Table) 06/21/16 06/21/16 Range/Units 06:00 06:00 RBC 2.52 L (3.80-5.40) m/uL Hgb 7.6 L (11.4-16.0) gm/dL Hct 25.1 L (34.0-46.0) % MCHC 30.1 L (31.0-37.0) g/dL Lymphocytes # 0.6 L (1.0-4.8) k/uL Chloride 108 H (98-107) mmol/L BUN 40 H (7-17) mg/dL Creatinine 1.45 H (0.52-1.04) mg/dL Calcium 8.3 L (8.4-10.2) mg/dL Assessment and Plan Plan: Syncope could be related to anemia. Patient has history of adenocarcinoma of duodenum S/P stent placement and chemotherapy and recent GI bleeding requiring transfusions and EGD last month. Will review CT. Will consider repeat EGD if evidence of accelerated bleeding that could benefit from endoscopic intervention.
[2016-06-22] MEDS: CALCIUM CARBONATE 500 MG CHEWABLE PO PRN ×3 (03:44→15:05)
[2016-06-22 06:05] LABS: Basophils % (A) 0 %; CH 30.4; CHCM 30.5; Eosinophils # (A) 0.1 k/uL (0-0.7); Eosinophils % (A) 1 %; HDW 3.02; HGB 7.5 gm/dL (11.4-16.0); Hypochromasia Marked; Luc # (Auto) 0.07; Luc % (Auto) 1; Lymphocytes # (A) 0.5 k/uL (1.0-4.8); Lymphocytes % (A) 10 %; MCH 31.4 pg (25.0-35.0); MCHC 31.3 g/dL (31.0-37.0); MCV 100.2 fL (80.0-100.0); Macrocytosis Slight; Mean Platelet Volume 7.4; Monocytes # (A) 0.3 k/uL (0-1.0); Monocytes % (A) 5 %; Neutrophils # (A) 4.4 k/uL (1.3-7.7); Neutrophils % (A) 82 %; RDW 15.6 % (11.5-15.5); WBC 5.4 k/uL (3.8-10.6); WBC (Perox) 5.75
[2016-06-22 06:21] LABS: Calcium 8.3 mg/dL (8.4-10.2); Potassium 4.6 mmol/L (3.5-5.1); Total Bilirubin 4.8 mg/dL (0.2-1.3); Total Protein 5.3 g/dL (6.3-8.2)
[2016-06-22] MEDS: LEVOTHYROXINE 75 MCG TAB PO SCH (06:51)
[2016-06-22] MEDS: RALOXIFENE 60 MG TAB PO SCH (08:17)
[2016-06-22] MEDS: ALLOPURINOL 300 MG TAB PO SCH (08:17)
[2016-06-22] MEDS: predniSONE 20 MG TAB PO SCH (08:18)
[2016-06-22] MEDS: SYMBICORT 80-4.5 MCG INHALER INHALATION SCH ×2 (10:01→20:37)
--- NOTE | 2016-06-22 12:13 | PN ---
Shannon is an 86-year-old lady who was admitted to hospital with anemia and syncope secondary to it. She has history of A. fib, was on Eliquis we had to stop because of the bleeding issues. On exam today, she is comfortable at rest. Vital signs are stable. There is no jugular venous distention. Chest exam reveals good air entry bilaterally. Heart exam reveals first and second heart sounds. No gallop. Exam of the extremities did not reveal any edema. Peripheral pulses are felt. ASSESSMENT: 1. Anemia, probably secondary to gastrointestinal blood loss. 2. History of atrial fibrillation. PLAN: Will continue to hold the Eliquis at this time. I am going to follow her on a p.r.n. basis. Please arrange followup with Cardiology on discharge.
--- NOTE | 2016-06-22 12:29 | PN ---
INTERVAL HISTORY: Ms. Carter is an 86-year-old female with a past medical history of atrial fibrillation, duodenal cancer, status post duodenal stent placement last month, GERD, hypertension, hyperlipidemia, osteoarthritis, admitted to the hospital with a chief complaint of syncopal episode. The patient's hemoglobin was found to be low. She was transfused with 1 unit of blood, after which her hemoglobin has been stabilized. Today, the patient is lying in bed. She states that she had a bowel movement early this morning and noticed some blood in her stool. She also complains of some epigastric pain, but denies having any dysphagia. She denies having any fevers, chills, or rigors. No dysuria or hematuria. No difficulty in breathing or palpitations. Denies having any chest pain. Patient's medications have been reviewed. She is on lipid Xanax, Pulmicort, Tums, folic acid, Synthroid, Singulair, prednisone, Raloxifene, Tramadol. On examination, vital signs, temperature 97.6, heart rate 68, respiratory rate 18, blood pressure 112/66, saturating at 99% on room air. GENERAL EXAMINATION: Elderly female lying in bed, appears to be in no acute distress. HEAD: Atraumatic nontraumatic. EYES: Pupils round and reactive to light. Mild pallor. Positive for mild icterus. NECK: No JVD, no thyromegaly. CARDIOVASCULAR: S1 and S2 heard. PULMONARY: Chest is clear to auscultation. No wheeze or crackles. ABDOMEN: Positive for tenderness in the epigastric region. No organomegaly. Bowel sounds are positive. EXTREMITIES: No edema. No cyanosis, no clubbing. MUSCULOSKELETAL: No joint swellings or deformities. NEUROLOGICAL: ABALONE PROCESSOR alert, awake and oriented x3. No focal deficits. LABS: White count of 5.3, hemoglobin 7.6, platelets of 167, sodium 141, potassium 4.3, chloride 108, bicarb 26, BUN 40, creatinine 1.45. ASSESSMENT AND PLAN: 1. Syncopal episode secondary to acute anemia. 2. Acute anemia secondary to gastrointestinal bleed, most likely lower as she has dark-colored stools. Patient's anticoagulation currently on hold. 3. Atrial fibrillation, rate controlled. 4. History of duodenal cancer, status post stent placement. The patient was on chemotherapy in the past. 5. Mildly elevated liver enzymes secondary to biliary duct obstruction as shown by CT scan of the abdomen. 6. Hyperbilirubinemia. 7. Gastroesophageal reflux disease. 8. Hypothyroidism. 9. Asthma. 10. Acute kidney injury secondary to hypovolemia, resolving. 11. Chronic kidney disease stage III. PLAN: The patient did receive 1 unit of PRBCs after which her hemoglobin has stabilized around 7. The patient has history of duodenal cancer and stent placement and she had a CT scan of the abdomen and pelvis done today, which is showing slight displacement of the duodenal stent and also biliary duct dilatation with distal obstruction at the ampulla of the duodenum. Hence, GI consult has been obtained. Further recommendations to follow depending on the progress of the patient. Overall prognosis is guarded due to chronic medical conditions.
[2016-06-22] MEDS: CYANOCOBALAMIN-FA-PYRIDOXINE 1 EACH TAB PO SCH ×2 (15:05→15:06)
[2016-06-22] MEDS: MONTELUKAST 10 MG TAB PO SCH (21:44)
[2016-06-23] MEDS: LEVOTHYROXINE 75 MCG TAB PO SCH (06:59)
[2016-06-23 07:23] LABS: Basophils % (A) 1 %; CH 30.7; CHCM 30.4; Eosinophils # (A) 0.1 k/uL (0-0.7); Eosinophils % (A) 2 %; HCT 28.1 % (34.0-46.0); HDW 2.89; HGB 8.4 gm/dL (11.4-16.0); Hypochromasia Marked; Luc # (Auto) 0.04; Luc % (Auto) 1; Lymphocytes # (A) 0.6 k/uL (1.0-4.8); Lymphocytes % (A) 14 %; MCH 30.2 pg (25.0-35.0); MCHC 29.8 g/dL (31.0-37.0); MCV 101.3 fL (80.0-100.0); Macrocytosis Slight; Mean Platelet Volume 8.3; Monocytes # (A) 0.3 k/uL (0-1.0); Monocytes % (A) 6 %; Neutrophils # (A) 3.3 k/uL (1.3-7.7); Neutrophils % (A) 77 %; RBC 2.78 m/uL (3.80-5.40); RDW 15.9 % (11.5-15.5); WBC 4.3 k/uL (3.8-10.6); WBC (Perox) 4.23
[2016-06-23] MEDS: SYMBICORT 80-4.5 MCG INHALER INHALATION SCH ×2 (08:39→20:37)
[2016-06-23] MEDS: predniSONE 20 MG TAB PO SCH (09:01)
[2016-06-23] MEDS: RALOXIFENE 60 MG TAB PO SCH (09:01)
[2016-06-23] MEDS: ALLOPURINOL 300 MG TAB PO SCH (09:01)
--- NOTE | 2016-06-23 09:47 | PN ---
DATE OF SERVICE: 06/22/2016 INTERVAL HISTORY: Ms. 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 The patient's hemoglobin was found to be low. She got one unit of PRBCs after which her hemoglobin has stabilized and patient did have a CAT scan of the abdomen and pelvis showing mild displacement of the duodenal stent with an extrahepatic biliary duct dilatation and distal obstruction of ampulla. GI, Dr. Bajwa on board following the patient. Patient still complains of some epigastric discomfort. Denies having any dysphagia. Complains of some dark-colored stools. Patient denies having any fevers, chills or rigors. No dysuria or hematuria. No difficulty in breathing or palpitations. Denies having any chest pain. Patient's medications have been reviewed. On examination, patient's vitals: Temperature 97.1, heart rate 82, respiratory rate 16, blood pressure 144/64, saturating at 100% on room air. HEAD: Atraumatic, normocephalic. EYES: Pupils, round, and reactive to light. Mild pallor, positive for mild icterus. NECK: No JVD. No thyromegaly. CARDIOVASCULAR: S1, S2. PULMONARY: Chest clear to auscultation, no wheeze or crackles. ABDOMEN: Positive for tenderness in the epigastric region. No organomegaly. Bowel sounds positive. EXTREMITIES: No edema, no cyanosis, no clubbing. DI[employer]: Alert, awake, oriented x3. No focal neurological deficits. PSYCHIATRIC: Appropriate mood and affect. PATIENT'S LABS: White count of 5.4, hemoglobin is 7.5, platelets 171, sodium 140, potassium 4.6, chloride 109, bicarb 23, BUN 31, creatinine 1.40. AST is 337 and ALT of 376. ASSESSMENT AND PLAN: 1. Syncopal episode secondary to acute anemia. 2. Acute anemia secondary to gastrointestinal loss, she was having dark-colored stools. Patient's anticoagulation currently on hold if rate controlled. 3. History of duodenal cancer, status post stent placement and patient received chemotherapy in the past. 4. Elevated liver enzymes most likely secondary to biliary duct obstruction as shown by CAT scan of the abdomen. 5. Hyperbilirubinemia. 6. Gastroesophageal reflux disease. 7. Hypothyroidism. 8. Asthma. 9. Acute kidney injury related to hypovolemia, resolving. 10. Chronic kidney disease stage III. PLAN: The patient received 1 unit of PRBCs and her hemoglobin has been stabilized. Kidney functioning has been improving. GI, Dr. Bajwa has been consulted for possible endoscopy to evaluate the duodenal stent. Overall prognosis is poor. Further recommendations to follow depending on the progress of the patient.
[2016-06-23] MEDS: CYANOCOBALAMIN-FA-PYRIDOXINE 1 EACH TAB PO SCH (12:43)
--- NOTE | 2016-06-23 16:52 | P.PN ---
Subjective This is a 86-year-old female with past medical history of poorly differentiated adenocarcinoma of the duodenum patient was previously treated at [facility] patient underwent a duodenal stent and was given chemotherapy. Patient. He was told her disease was stable and hence was maintained off with serial monitoring with PET scans. Patient was seen in our facility with the last 4-8 weeks for similar complains of bleeding per rectum. Patient underwent a upper endoscopy was noted to have a bleeding area around the stent with suspicion for recurrence of cancer. Patient at that time received epinephrine injection at the local site. Patient comes back in to the hospital with similar complaints and anemia. Currently denies having any chest pain, difficulty breathing, nausea, vomiting, diarrhea. A computed tomography scan of the abdomen shows a displaced duodenal stent and dilated intra-and extrahepatic ducts with hyperbilirubinemia. Objective - Vital Signs Vital signs: Vital Signs Temp 97.9 F 06/23/16 12:00 Pulse 86 06/23/16 12:00 Resp 18 06/23/16 12:00 BP 161/60 06/23/16 12:00 Pulse Ox 97 06/23/16 12:00 Intake & Output 06/22/16 06/23/16 06/23/16 18:59 06:59 18:59 Intake Total 500 Output Total 750 500 Balance -250 -500 Weight 64.3 kg Intake: Oral 500 Output: Urine 750 500 Other: Voiding Method Bedside Commode Toilet # Voids 1 1 # Bowel Movements 1 - Exam Physical exam Gen. appearance oriented 3 in no distress Neck is supple no JVD Lungs good air entry clear to auscultation no rhonchi or wheezing Heart S1-S2 heard regular rate and rhythm no murmurs appreciated Abdomen is soft nontender no organomegaly bowel sounds are intact Neurologically cranial nerves II-12 grossly intact no focal motor or sensory deficits noted Skin jaundice noted. - Labs CBC & Chem 7: 06/23/16 06:24 06/22/16 05:33 Labs: Abnormal Lab Results - Last 24 Hours (Table) 06/21/16 06/23/16 Range/Units 20:32 06:24 RBC 2.78 L (3.80-5.40) m/uL Hgb 8.4 L (11.4-16.0) gm/dL Hct 28.1 L (34.0-46.0) % MCV 101.3 H (80.0-100.0) fL MCHC 29.8 L (31.0-37.0) g/dL RDW 15.9 H (11.5-15.5) % Lymphocytes # 0.6 L (1.0-4.8) k/uL Stool Occult Blood Positive H (Negative) Assessment and Plan Plan: #1 acute symptomatic anemia likely secondary from an duodenal bleed #2 history of poorly differentiated adenocarcinoma of the duodenum #3 history of atrial fibrillation and anticoagulation was discontinued on the last visit #4 history of GERD #5 dyspnea #6 CK D stage III #7 osteoarthritis #8 hypothyroidism #9 obstructive jaundice Plan Patient is status post PRBC transfusion. Patient likely has a recurrence of cancer. MRCP cannot be done as patient does have a knee replacement done 20 years ago. If patient undergoes EGD once bleeding is stopped we'll have to consider either ERCP at that time this will be discussed with GI. Patient's prognosis is poor
[2016-06-23] MEDS: CALCIUM CARBONATE 500 MG CHEWABLE PO PRN ×2 (17:33→22:41)
[2016-06-23] MEDS: MONTELUKAST 10 MG TAB PO SCH (21:41)
[2016-06-24] MEDS: ALPRAZolam 0.25 MG TAB PO PRN (00:40)
[2016-06-24] MEDS: traMADol 50 MG TAB PO PRN (05:15)
[2016-06-24 06:59] LABS: Anisocytosis Slight; Basophils % (A) 0 %; CH 30.3; CHCM 30.2; Eosinophils # (A) 0.1 k/uL (0-0.7); Eosinophils % (A) 2 %; HCT 24.6 % (34.0-46.0); HDW 2.81; HGB 7.6 gm/dL (11.4-16.0); Hypochromasia Marked; Luc # (Auto) 0.08; Luc % (Auto) 2; Lymphocytes # (A) 0.5 k/uL (1.0-4.8); Lymphocytes % (A) 12 %; MCH 31.1 pg (25.0-35.0); MCHC 30.8 g/dL (31.0-37.0); Macrocytosis Slight; Mean Platelet Volume 7.3; Monocytes # (A) 0.3 k/uL (0-1.0); Monocytes % (A) 6 %; Neutrophils # (A) 3.5 k/uL (1.3-7.7); Neutrophils % (A) 78 %; RBC 2.44 m/uL (3.80-5.40); RDW 16.4 % (11.5-15.5); WBC 4.4 k/uL (3.8-10.6); WBC (Perox) 4.85
[2016-06-24 07:31] LABS: Calcium 8.6 mg/dL (8.4-10.2); Potassium 4.6 mmol/L (3.5-5.1); Total Bilirubin 6.2 mg/dL (0.2-1.3); Total Protein 5.5 g/dL (6.3-8.2)
[2016-06-24] MEDS: ALLOPURINOL 300 MG TAB PO SCH (08:34)
[2016-06-24] MEDS: LEVOTHYROXINE 75 MCG TAB PO SCH (08:34)
[2016-06-24] MEDS: RALOXIFENE 60 MG TAB PO SCH (08:35)
[2016-06-24] MEDS: predniSONE 20 MG TAB PO SCH (08:35)
[2016-06-24] MEDS: SYMBICORT 80-4.5 MCG INHALER INHALATION SCH ×2 (08:38→19:52)
--- NOTE | 2016-06-24 08:39 | P.PN ---
Subjective Principal diagnosis: Obstructive jaundice history of duodenal adenocarcinoma 86-year-old female with a history of duodenal adenocarcinoma with stent 2015 recently hospitalized for symptomatic anemia status post EGD 06/03/2016 with findings of mucosal oozing from several areas noted within the duodenal sweep with residual tumor and stent status post epinephrine injection. Readmitted on 06/18/2016 with syncope anemia and jaundice. Total bilirubin on admission 4.3 currently 6.2. Total bilirubin on 06/08/2016 was 1.9. AST 252. ALT 352. Alkaline phosphatase 272. She is reporting midepigastric pain. Afebrile. Noncontrast CT abdomen and pelvis 06/21/2016 suggest intrahepatic biliary ductal dilatation and dilation of bile duct proximally 1 cm. Lymph node anterior to pancreatic head is mildly enlarged at 1.1 cm. Difficult to delineate the duodenum for the pancreas on noncontrast study. Objective - Vital Signs Vital signs: Vital Signs Temp 98.9 F 06/24/16 04:00 Pulse 100 06/24/16 04:00 Resp 18 06/24/16 04:00 BP 145/67 06/24/16 04:00 Pulse Ox 97 06/24/16 04:00 Intake & Output 06/23/16 06/24/16 06/24/16 18:59 06:59 18:59 Intake Total 600 Output Total 750 Balance 600 -750 Weight 63.7 kg Intake: Oral 600 Output: Urine 750 Other: Voiding Method Toilet # Bowel Movements 1 - Exam General appearance: The patient is alert, oriented, in no acute distress. Jaundice. HET: Head is normocephalic and atraumatic. Pupils are equal and reactive. Sclerae icterus. Oropharynx is clear without lesions. Neck: Supple without lymphadenopathy. Trachea midline. Heart: S1 S2. Regular rate and rhythm. Lungs: No crackles or wheezes are heard. Abdomen: Soft, mild midepigastric tenderness, nondistended with bowel sounds. No peritoneal signs. No palpable organomegaly or masses. Extremities: Normal skin color and turgor. No cyanosis, rash, ulceration, clubbing, or edema. Radial and pedal pulses are 2/4 bilaterally. Neurological: No focal deficits. Strength and sensation are grossly intact. - Labs CBC & Chem 7: 06/24/16 06:33 06/24/16 06:33 Labs: Abnormal Lab Results - Last 24 Hours (Table) 06/24/16 06/24/16 Range/Units 06:33 06:33 RBC 2.44 L (3.80-5.40) m/uL Hgb 7.6 L (11.4-16.0) gm/dL Hct 24.6 L (34.0-46.0) % MCV 101.0 H (80.0-100.0) fL MCHC 30.8 L (31.0-37.0) g/dL RDW 16.4 H (11.5-15.5) % Lymphocytes # 0.5 L (1.0-4.8) k/uL Chloride 108 H (98-107) mmol/L BUN 28 H (7-17) mg/dL Creatinine 1.49 H (0.52-1.04) mg/dL Glucose 101 H (74-99) mg/dL Total Bilirubin 6.2 H (0.2-1.3) mg/dL AST 252 H (14-36) U/L ALT 352 H (9-52) U/L Alkaline Phosphatase 272 H (38-126) U/L Total Protein 5.5 L (6.3-8.2) g/dL Albumin 2.7 L (3.5-5.0) g/dL Assessment and Plan (1) Obstructive jaundice Status: Acute (2) Duodenal adenocarcinoma Status: Acute (3) Acute blood loss anemia Status: Acute Plan: 1. ERCP possible biliary stent placement. 2. Supportive measures. CBC monitoring. 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 The patient has indicated understanding and acceptance of the risks and procedures discussed. The above dictated assessment and findings were discussed with Dr. Bajwa. The impression and plan of care have been directed as dictated.
[2016-06-24] MEDS: CYANOCOBALAMIN-FA-PYRIDOXINE 1 EACH TAB PO SCH (12:55)
[2016-06-24] MEDS ORDERED: INDOMETHACIN 50MG SUPPOSITORY RECTAL ONE (14:00)
[2016-06-24] MEDS ORDERED: LEVOFLOXACIN 500MG-D5W PMX 500 MG in DEXTROSE/WATER 1 100ML.BAG IVPB ONE (14:00)
[2016-06-24] MEDS ORDERED: PROPOFOL 10 MG/ML 20 ML VIAL IV ONE (14:59)
[2016-06-24] MEDS ORDERED: GLYCOPYRROLATE 0.2 MG/ML 2 ML VIAL ONE (14:59)
[2016-06-24] MEDS ORDERED: KETAMINE 10 MG/ML 20 ML VIAL ONE (14:59)
[2016-06-24] MEDS ORDERED: IV FLUID CONTINUATION 400 ML IV ONE (15:02)
--- NOTE | 2016-06-24 15:51 | P.PCN ---
Date of Procedure: 06/24/16 Procedure(s) Performed: Procedure: Esophagogastroduodenoscopy and biopsy. Preoperative diagnosis: History of duodenal cancer with progressive jaundice and abnormal CT. Postoperative diagnosis: 1. Descending duodenum in the area of the duodenal stent and immediate area proximal to the stent shows nodular, friable mucosa and area appeared crowded not allowing the advancement of the upper endoscope. 2. Biopsies were obtained. 3. No attempt was made to perform an ERCP because of inability to advance the duodenoscope in that area. Preparation and sedation: Was provided by anesthesia. Brief clinical history: The patient is an 86-year-old female with a history of duodenal adenocarcinoma with duodenal stent placed in 2014 and prior chemotherapy, was recently hospitalized for symptomatic anemia and had an EGD with findings of mucosal oozing from several areas noted within the duodenal sweep with residual tumor and stent for which she had epinephrine injection. She was readmitted on 06/18/2016 with syncope, anemia and jaundice. Total bilirubin on admission 4.3 currently 6.2. Total bilirubin on 2016 was 1.9. AST 252. ALT 352. Alkaline phosphatase 272. She has been complaining of midepigastric pain. Noncontrast CT abdomen and pelvis 06/21/2016 suggested intrahepatic biliary ductal dilatation and dilation of bile duct proximally up to 1 cm. Lymph node anterior to pancreatic head is mildly enlarged at 1.1 cm. Difficult to delineate the duodenum for the pancreas on noncontrast study. The details are summarized in the history and physical and dictated consultation and progress notes. This evaluation is to assess for possible ERCP. Procedure: With the patient in the prone position and after informed consent and adequate sedation, I passed the Olympus-GIF 160 video upper endoscope through the cricopharyngeus down the esophagus. The esophagus appeared healthy. There was a sliding hiatal hernia then the endoscope was passed into the stomach which was insufflated with air and inspected in detail including the retroflex view in the cardia. There was some rust colored secretions in the stomach but no overt bleeding. The endoscope was then passed through the pylorus into the duodenum. The descending duodenum in the area of the duodenal stent and the immediate area proximal to the stent showed nodular, friable mucosa. The area appeared crowded not allowing the advancement of the endoscope into the descending duodenum. With this observation, I realized that it would not be feasible to pass the duodenoscope into that area, let alone visualizing the papilla or cannulating the bile duct. I therefore obtained biopsies from the duodenum then the endoscope was withdrawn without performing an ERCP today. The patient tolerated the procedure well. Plan: I discussed at length with the patient and her family. Will allow liquid diet and monitor her counts closely. She might benefit from a percutaneous drainage of the biliary tree and subsequently could convert to an internal stent based on her overall progress. I will discuss with you and follow with you with interest.
--- NOTE | 2016-06-24 17:12 | P.PN ---
Subjective This is a 86-year-old female with past medical history of poorly differentiated adenocarcinoma of the duodenum patient was previously treated at [facility] patient underwent a duodenal stent and was given chemotherapy. Patient. He was told her disease was stable and hence was maintained off with serial monitoring with PET scans. Patient was seen in our facility with the last 4-8 weeks for similar complains of bleeding per rectum. Patient underwent a upper endoscopy was noted to have a bleeding area around the stent with suspicion for recurrence of cancer. Patient at that time received epinephrine injection at the local site. Patient comes back in to the hospital with similar complaints and anemia. Currently denies having any chest pain, difficulty breathing, nausea, vomiting, diarrhea. A computed tomography scan of the abdomen shows a displaced duodenal stent and dilated intra-and extrahepatic ducts with hyperbilirubinemia. 06/24/2016 Patient underwent a endoscopy however the scope was apparently not able to be passed with a previous stent. There is apparently findings suggestive of recurrence and worsening of the tumor. Continues to have abdominal pain that is epigastric to right upper abdominal in location not associated with any nausea or diarrhea. She has not had any bowel movements that are bloody or black tarry in color. Objective - Vital Signs Vital signs: Vital Signs Temp 96.9 F L 06/24/16 15:55 Pulse 87 06/24/16 15:55 Resp 18 06/24/16 15:55 BP 149/76 06/24/16 15:55 Pulse Ox 99 06/24/16 15:55 Intake & Output 06/23/16 06/24/16 06/24/16 18:59 06:59 18:59 Intake Total 600 200 Output Total 750 Balance 600 -750 200 Weight 63.7 kg Intake: IV 200 Oral 600 Output: Urine 750 Other: Voiding Method Toilet # Bowel Movements 1 - Exam Physical exam Gen. appearance oriented 3 in no distress Neck is supple no JVD Lungs good air entry clear to auscultation no rhonchi or wheezing Heart S1-S2 heard regular rate and rhythm no murmurs appreciated Abdomen is soft nontender no organomegaly bowel sounds are intact Neurologically cranial nerves II-12 grossly intact no focal motor or sensory deficits noted Skin jaundice noted. - Labs CBC & Chem 7: 06/24/16 06:33 06/24/16 06:33 Labs: Abnormal Lab Results - Last 24 Hours (Table) 06/24/16 06/24/16 Range/Units 06:33 06:33 RBC 2.44 L (3.80-5.40) m/uL Hgb 7.6 L (11.4-16.0) gm/dL Hct 24.6 L (34.0-46.0) % MCV 101.0 H (80.0-100.0) fL MCHC 30.8 L (31.0-37.0) g/dL RDW 16.4 H (11.5-15.5) % Lymphocytes # 0.5 L (1.0-4.8) k/uL Chloride 108 H (98-107) mmol/L BUN 28 H (7-17) mg/dL Creatinine 1.49 H (0.52-1.04) mg/dL Glucose 101 H (74-99) mg/dL Total Bilirubin 6.2 H (0.2-1.3) mg/dL AST 252 H (14-36) U/L ALT 352 H (9-52) U/L Alkaline Phosphatase 272 H (38-126) U/L Total Protein 5.5 L (6.3-8.2) g/dL Albumin 2.7 L (3.5-5.0) g/dL Assessment and Plan Plan: #1 acute symptomatic anemia likely secondary from an duodenal bleed #2 history of poorly differentiated adenocarcinoma of the duodenum #3 history of atrial fibrillation and anticoagulation was discontinued on the last visit #4 history of GERD #5 dyspnea #6 CK D stage III #7 osteoarthritis #8 hypothyroidism #9 obstructive jaundice Plan She's prognosis is extremely poor will have a intervention radiology consult for a PTC placement. This was discussed with the patient's son. With patient having poorly differentiated adenocarcinoma of the duodenum with possible extension into or the pancreatic head consideration for hospice may be appropriate. However patient's oncology physician is Ara Car likely discharge the patient after PTC placement to follow up with oncology in the next few days.
[2016-06-24] MEDS: MONTELUKAST 10 MG TAB PO SCH (20:39)
[2016-06-25] MEDS: CALCIUM CARBONATE 500 MG CHEWABLE PO PRN ×4 (02:00→18:29)
[2016-06-25] MEDS: LEVOTHYROXINE 75 MCG TAB PO SCH (05:35)
[2016-06-25 07:22] LABS: Anisocytosis Slight; Basophils % (A) 0 %; CH 30.4; CHCM 30.2; Eosinophils # (A) 0.1 k/uL (0-0.7); Eosinophils % (A) 2 %; HCT 24.2 % (34.0-46.0); HDW 2.79; HGB 7.5 gm/dL (11.4-16.0); Hypochromasia Marked; Luc # (Auto) 0.07; Luc % (Auto) 2; Lymphocytes # (A) 0.5 k/uL (1.0-4.8); Lymphocytes % (A) 12 %; MCH 31.6 pg (25.0-35.0); MCHC 31.3 g/dL (31.0-37.0); MCV 101.1 fL (80.0-100.0); Macrocytosis Slight; Mean Platelet Volume 7.3; Monocytes # (A) 0.3 k/uL (0-1.0); Monocytes % (A) 7 %; Neutrophils # (A) 3.2 k/uL (1.3-7.7); Neutrophils % (A) 77 %; RBC 2.39 m/uL (3.80-5.40); RDW 16.1 % (11.5-15.5); WBC 4.2 k/uL (3.8-10.6); WBC (Perox) 4.48
[2016-06-25 07:28] LABS: Calcium 8.6 mg/dL (8.4-10.2); Potassium 4.3 mmol/L (3.5-5.1); Total Bilirubin 6.2 mg/dL (0.2-1.3); Total Protein 5.3 g/dL (6.3-8.2)
[2016-06-25] MEDS: ALLOPURINOL 300 MG TAB PO SCH (08:06)
[2016-06-25] MEDS: RALOXIFENE 60 MG TAB PO SCH (08:08)
[2016-06-25] MEDS: predniSONE 20 MG TAB PO SCH (08:09)
[2016-06-25] MEDS: SYMBICORT 80-4.5 MCG INHALER INHALATION SCH ×2 (09:17→20:50)
--- NOTE | 2016-06-25 10:07 | P.PN ---
Subjective Principal diagnosis: Obstructive jaundice history of duodenal adenocarcinoma 86-year-old female with a history of duodenal adenocarcinoma with stent 2015 recently hospitalized for symptomatic anemia status post EGD 06/03/2016 with findings of mucosal oozing from several areas noted within the duodenal sweep with residual tumor and stent status post epinephrine injection. Readmitted on 06/18/2016 with syncope anemia and jaundice. Total bilirubin on admission 4.3 [address] abdomen and pelvis 06/21/2016 suggest intrahepatic biliary ductal dilatation and dilation of bile duct proximally 1 cm. Lymph node anterior to pancreatic head is mildly enlarged at 1.1 cm. Difficult to delineate the duodenum for the pancreas on noncontrast study. ERCP attempted yesterday but unsuccessful due to the inability to cannulate the common bile duct. Denies abdominal pain. PTC was recommended however patient is declining and would like to follow-up with her [facility] physicians for further evaluation and recommendations. Objective - Vital Signs Vital signs: Vital Signs Temp 97.6 F 06/25/16 04:00 Pulse 72 06/25/16 04:00 Resp 18 06/25/16 04:00 BP 129/79 06/25/16 04:00 Pulse Ox 99 06/25/16 04:00 Intake & Output 06/24/16 06/25/16 06/25/16 18:59 06:59 18:59 Intake Total 200 440 Output Total 400 100 Balance 200 -400 340 Weight 64 kg Intake: IV 200 Oral 440 Output: Urine 400 100 Other: Voiding Method Toilet # Bowel Movements 1 - Exam General appearance: The patient is alert, oriented, in no acute distress. Jaundice. HET: Head is normocephalic and atraumatic. Pupils are equal and reactive. Sclerae icterus. Oropharynx is clear without lesions. Neck: Supple without lymphadenopathy. Trachea midline. Heart: S1 S2. Regular rate and rhythm. Lungs: No crackles or wheezes are heard. Abdomen: Soft, nontender, nondistended with bowel sounds. No peritoneal signs. No palpable organomegaly or masses. Extremities: Normal skin color and turgor. No cyanosis, rash, ulceration, clubbing, or edema. Radial and pedal pulses are 2/4 bilaterally. Neurological: No focal deficits. Strength and sensation are grossly intact. - Labs CBC & Chem 7: 06/25/16 06:55 06/25/16 06:53 Labs: Abnormal Lab Results - Last 24 Hours (Table) 06/25/16 06/25/16 Range/Units 06:53 06:55 RBC 2.39 L (3.80-5.40) m/uL Hgb 7.5 L (11.4-16.0) gm/dL Hct 24.2 L (34.0-46.0) % MCV 101.1 H (80.0-100.0) fL RDW 16.1 H (11.5-15.5) % Lymphocytes # 0.5 L (1.0-4.8) k/uL Chloride 108 H (98-107) mmol/L BUN 33 H (7-17) mg/dL Creatinine 1.75 H (0.52-1.04) mg/dL Total Bilirubin 6.2 H (0.2-1.3) mg/dL AST 183 H (14-36) U/L ALT 298 H (9-52) U/L Alkaline Phosphatase 264 H (38-126) U/L Total Protein 5.3 L (6.3-8.2) g/dL Albumin 2.7 L (3.5-5.0) g/dL Assessment and Plan (1) Obstructive jaundice Narrative/Plan: Status post attempted ERCP Status: Acute (2) Duodenal adenocarcinoma Status: Acute (3) Acute blood loss anemia Status: Acute Plan: 1. PTC recommended however patient is declining would like to speak with her [facility] physician staff for further evaluation and recommendations. Discharge per medicine. The above dictated assessment and findings were discussed with Dr. Bajwa. The impression and plan of care have been directed as dictated.
--- NOTE | 2016-06-25 12:05 | P.PN ---
Subjective This is a pleasant 86-year-old female with history of chronic persistent atrial fibrillation, chronic anemia, hypertension, hyperlipidemia, she follows regularly with Dr. Camargo in the office. She has a history of thyroid carcinoma, duodenal adenocarcinoma status post chemo and stent placement , GERD, anxiety, patient was recently in the hospital, and again readmitted on this occasion with syncope. She was quite anemic on presentation here. When the patient was recently discharged from the hospital, she was started on Eliquis. This has since been discontinued, she continues to be off of the Eliquis. Patient is still currently on liquids only. Blood pressure 124/56, heart rate in the 60s to 70s. Hemoglobin today 7.5. Objective - Vital Signs Vital signs: Vital Signs Temp 97.7 F 06/25/16 11:07 Pulse 63 06/25/16 11:07 Resp 16 06/25/16 11:07 BP 139/60 06/25/16 11:07 Pulse Ox 99 06/25/16 11:07 Intake & Output 06/24/16 06/25/16 06/25/16 18:59 06:59 18:59 Intake Total 200 440 Output Total 400 100 Balance 200 -400 340 Weight 64 kg Intake: IV 200 Oral 440 Output: Urine 400 100 Other: Voiding Method Toilet # Bowel Movements 1 - Exam PHYSICAL EXAMINATION: HEENT: Head is atraumatic, normocephalic. Pupils equal, round. Neck is supple. There is no elevated jugular venous pressure. HEART EXAMINATION: Heart S1 and S2 irregular irregular CHEST EXAMINATION: Lungs are clear to auscultation and precussion. No chest wall tenderness is noted on palpation or with deep breathing. ABDOMEN: Soft, nontender. Bowel sounds are heard. No organomegaly noted. EXTREMITIES: 2+ peripheral pulses with no evidence of peripheral edema and no calf tenderness noted. NEUROLOGIC patient is awake, alert and oriented -3. . - Labs CBC & Chem 7: 06/25/16 06:55 06/25/16 06:53 Labs: Abnormal Lab Results - Last 24 Hours (Table) 06/25/16 06/25/16 Range/Units 06:53 06:55 RBC 2.39 L (3.80-5.40) m/uL Hgb 7.5 L (11.4-16.0) gm/dL Hct 24.2 L (34.0-46.0) % MCV 101.1 H (80.0-100.0) fL RDW 16.1 H (11.5-15.5) % Lymphocytes # 0.5 L (1.0-4.8) k/uL Chloride 108 H (98-107) mmol/L BUN 33 H (7-17) mg/dL Creatinine 1.75 H (0.52-1.04) mg/dL Total Bilirubin 6.2 H (0.2-1.3) mg/dL AST 183 H (14-36) U/L ALT 298 H (9-52) U/L Alkaline Phosphatase 264 H (38-126) U/L Total Protein 5.3 L (6.3-8.2) g/dL Albumin 2.7 L (3.5-5.0) g/dL Assessment and Plan (1) Syncope Status: Acute (2) Chronic a-fib Status: Acute (3) HTN (hypertension) Status: Acute (4) Hyperlipemia Status: Acute (5) Abnormal liver function Status: Acute (6) Hx of thyroid cancer Status: Acute (7) Hx of duodenal ulcer Status: Acute (8) Chronic anemia Status: Acute (9) GI hemorrhage Status: Acute Plan: From cardiology's perspective, we will continue to hold the patient's Eliquis. We will make her a follow-up appointment in the office to see Dr. Camargo post discharge. We will follow along with you now on an as-needed basis only, please don't hesitate to call with any questions. DNP note has been reviewed, I agree with a documented findings and plan of care. Patient was seen and examined.
[2016-06-25] MEDS: CYANOCOBALAMIN-FA-PYRIDOXINE 1 EACH TAB PO SCH ×2 (12:15→12:18)
[2016-06-25 13:08] VITALS: BMI 25.8
--- NOTE | 2016-06-25 18:58 | P.PN ---
Subjective This is a 86-year-old female with past medical history of poorly differentiated adenocarcinoma of the duodenum patient was previously treated at [facility] patient underwent a duodenal stent and was given chemotherapy. Patient. He was told her disease was stable and hence was maintained off with serial monitoring with PET scans. Patient was seen in our facility with the last 4-8 weeks for similar complains of bleeding per rectum. Patient underwent a upper endoscopy was noted to have a bleeding area around the stent with suspicion for recurrence of cancer. Patient at that time received epinephrine injection at the local site. Patient comes back in to the hospital with similar complaints and anemia. Currently denies having any chest pain, difficulty breathing, nausea, vomiting, diarrhea. A computed tomography scan of the abdomen shows a displaced duodenal stent and dilated intra-and extrahepatic ducts with hyperbilirubinemia. 06/24/2016 Patient underwent a endoscopy however the scope was apparently not able to be passed with a previous stent. There is apparently findings suggestive of recurrence and worsening of the tumor. Continues to have abdominal pain that is epigastric to right upper abdominal in location not associated with any nausea or diarrhea. She has not had any bowel movements that are bloody or black tarry in color. 06/25/2016 Patient refused to have the PTC drain placed. Patient would like to hear other options from her oncology team at [facility]. Denies having any additional bleeding episodes. Patient's family was at bedside. Objective - Vital Signs Vital signs: Vital Signs Temp 97.6 F 06/25/16 15:45 Pulse 78 06/25/16 15:45 Resp 18 06/25/16 15:45 BP 111/56 06/25/16 15:45 Pulse Ox 96 06/25/16 15:45 Intake & Output 06/24/16 06/25/16 06/25/16 18:59 06:59 18:59 Intake Total 200 740 Output Total 400 100 Balance 200 -400 640 Weight 64 kg 64 kg Intake: IV 200 Oral 740 Output: Urine 400 100 Other: Voiding Method Toilet # Bowel Movements 1 - Exam Physical exam Gen. appearance oriented 3 in no distress Neck is supple no JVD Lungs good air entry clear to auscultation no rhonchi or wheezing Heart S1-S2 heard regular rate and rhythm no murmurs appreciated Abdomen is soft nontender no organomegaly bowel sounds are intact Neurologically cranial nerves II-12 grossly intact no focal motor or sensory deficits noted Skin jaundice noted. - Labs CBC & Chem 7: 06/25/16 06:55 06/25/16 06:53 Labs: Abnormal Lab Results - Last 24 Hours (Table) 06/25/16 06/25/16 Range/Units 06:53 06:55 RBC 2.39 L (3.80-5.40) m/uL Hgb 7.5 L (11.4-16.0) gm/dL Hct 24.2 L (34.0-46.0) % MCV 101.1 H (80.0-100.0) fL RDW 16.1 H (11.5-15.5) % Lymphocytes # 0.5 L (1.0-4.8) k/uL Chloride 108 H (98-107) mmol/L BUN 33 H (7-17) mg/dL Creatinine 1.75 H (0.52-1.04) mg/dL Total Bilirubin 6.2 H (0.2-1.3) mg/dL AST 183 H (14-36) U/L ALT 298 H (9-52) U/L Alkaline Phosphatase 264 H (38-126) U/L Total Protein 5.3 L (6.3-8.2) g/dL Albumin 2.7 L (3.5-5.0) g/dL Assessment and Plan Plan: #1 acute symptomatic anemia likely secondary from an duodenal bleed #2 history of poorly differentiated adenocarcinoma of the duodenum #3 history of atrial fibrillation and anticoagulation was discontinued on the last visit #4 history of GERD #5 dyspnea #6 CK D stage III #7 osteoarthritis #8 hypothyroidism #9 obstructive jaundice Plan Prognosis appears to be extremely poor . Patient will likely be discharged home tomorrow. A repeat hemoglobin will be drawn in the a.m.
[2016-06-25] MEDS: MONTELUKAST 10 MG TAB PO SCH (21:32)
[2016-06-26] MEDS: ALPRAZolam 0.25 MG TAB PO PRN (00:31)
[2016-06-26] MEDS: CALCIUM CARBONATE 500 MG CHEWABLE PO PRN ×3 (00:31→15:06)
[2016-06-26] MEDS: LEVOTHYROXINE 75 MCG TAB PO SCH (06:24)
[2016-06-26 06:55] LABS: Anisocytosis Slight; Basophils % (A) 1 %; CH 30.3; CHCM 29.5; Eosinophils # (A) 0.1 k/uL (0-0.7); Eosinophils % (A) 2 %; HCT 24.6 % (34.0-46.0); HDW 2.82; HGB 7.3 gm/dL (11.4-16.0); Hypochromasia Marked; Luc # (Auto) 0.05; Luc % (Auto) 2; Lymphocytes # (A) 0.5 k/uL (1.0-4.8); Lymphocytes % (A) 16 %; MCH 30.6 pg (25.0-35.0); MCHC 29.6 g/dL (31.0-37.0); MCV 103.2 fL (80.0-100.0); Macrocytosis Moderate; Mean Platelet Volume 7.4; Monocytes # (A) 0.2 k/uL (0-1.0); Monocytes % (A) 7 %; Neutrophils # (A) 2.1 k/uL (1.3-7.7); Neutrophils % (A) 72 %; RBC 2.38 m/uL (3.80-5.40); RDW 16.4 % (11.5-15.5); WBC 2.9 k/uL (3.8-10.6); WBC (Perox) 3.11
[2016-06-26] MEDS: SYMBICORT 80-4.5 MCG INHALER INHALATION SCH (07:56)
[2016-06-26] MEDS: predniSONE 20 MG TAB PO SCH ×2 (08:54→08:57)
[2016-06-26] MEDS: ALLOPURINOL 300 MG TAB PO SCH (08:55)
[2016-06-26] MEDS: RALOXIFENE 60 MG TAB PO SCH (08:55)
[2016-06-26 12:41] VITALS: TEMP 96.8
[2016-06-26 12:51] VITALS: BP 116/70; PULSE 72; RESP 14
[2016-06-26] MEDS: CYANOCOBALAMIN-FA-PYRIDOXINE 1 EACH TAB PO SCH (14:51)
--- NOTE | 2016-06-26 20:09 | P.DS ---
Providers Date of admission: 06/18/16 15:48 Attending physician: Connor Sanchez Consults: 06/19/16 11:53 Consult Physician Routine Consulting Provider: Jose Camargo Consult Reason/Comments: Syncope Do you want consulting provider notified?: Yes 06/24/16 17:08 Consult Physician Urgent Consulting Provider: Aleks Simons Consult Reason/Comments: placement of a PTC Do you want consulting provider notified?: Yes Primary care physician: [facility] Course: This is a 86-year-old female with past medical history of poorly differentiated adenocarcinoma of the duodenum patient was previously treated at [facility] patient underwent a duodenal stent and was given chemotherapy. Patient. He was told her disease was stable and hence was maintained off with serial monitoring with PET scans. Patient was seen in our facility with the last 4-8 weeks for similar complains of bleeding per rectum. Patient underwent a upper endoscopy was noted to have a bleeding area around the stent with suspicion for recurrence of cancer. Patient at that time received epinephrine injection at the local site. Patient comes back in to the hospital with similar complaints and anemia. Currently denies having any chest pain, difficulty breathing, nausea, vomiting, diarrhea. A computed tomography scan of the abdomen shows a displaced duodenal stent and dilated intra-and extrahepatic ducts with hyperbilirubinemia. 06/24/2016 Patient underwent a endoscopy however the scope was apparently not able to be passed with a previous stent. There is apparently findings suggestive of recurrence and worsening of the tumor. Continues to have abdominal pain that is epigastric to right upper abdominal in location not associated with any nausea or diarrhea. She has not had any bowel movements that are bloody or black tarry in color. 06/25/2016 Patient refused to have the PTC drain placed. Patient would like to hear other options from her oncology team at [facility]. Denies having any additional bleeding episodes. Patient's family was at bedside. On day of discharge No new complaints. - Exam Physical exam Gen. appearance oriented 3 in no distress Neck is supple no JVD Lungs good air entry clear to auscultation no rhonchi or wheezing Heart S1-S2 heard regular rate and rhythm no murmurs appreciated Abdomen is soft nontender no organomegaly bowel sounds are intact Neurologically cranial nerves II-12 grossly intact no focal motor or sensory deficits noted Skin jaundice noted. Assessment and Plan Plan: #1 acute symptomatic anemia likely secondary from an duodenal bleed #2 history of poorly differentiated adenocarcinoma of the duodenum #3 history of atrial fibrillation and anticoagulation was discontinued on the last visit #4 history of GERD #5 dyspnea #6 CK D stage III #7 osteoarthritis #8 hypothyroidism #9 obstructive jaundice Plan Prognosis appears to be extremely poor . Recs/Discussion Family has made an appointment at [facility] with her previous Oncologist on next pt will be provided ct scans and documentation from this current visit' Discussed signs of obstruction and if any further signs of bleeding pt should return to hospital . Patient Condition at Discharge: Fair Plan - Discharge Summary New Discharge Prescriptions: Sucralfate [Carafate] 1 gm PO BID #60 tab Discharge Medication List Allopurinol [Zyloprim] 150 mg PO DAILY 12/12/13 [History] Levothyroxine Sodium [Synthroid] 125 mcg PO DAILY 12/12/13 [History] Montelukast [Singulair] 10 mg PO HS 12/12/13 [History] Raloxifene [Evista] 60 mg PO DAILY 12/12/13 [History] ALPRAZolam [Xanax] 0.25 mg PO Q8HR PRN 10/11/14 [History] traMADol HCl [Ultram] 50 mg PO Q6HR PRN #20 tab 01/30/15 [Rx] Calcium Carbonate [Tums] 500 mg PO QID PRN 06/01/16 [History] Lisinopril [Zestril] 20 mg PO DAILY #30 tab 06/08/16 [Rx] Sucralfate [Carafate] 1 gm PO BID #60 tab 06/26/16 [Rx] Follow up Appointment(s)/Referral(s): [facility], [NON-STAFF] - As Needed Zia Jackson DO [Primary Care Provider] - 1-2 days Patient Instructions/Handouts: Syncope (DC), Hemolytic Anemia (DC) Discharge Disposition: HOME SELF-CARE
== END 2016-06-26 16:00 | disposition home or self-care (01) | DRG 377 ==
LOC: EC 13:20 → 6SEL 15:48
PROVIDERS: ADMIT Hospitalist; ATTEND Hospitalist
PROC: 30233N1 Transfusion of Nonautologous Red Blood Cells into Peripheral Vein, Percutaneous Approach (ICD-10-PCS; principal; 2016-06-20)
PROC: 0DB98ZX Excision of Duodenum, Via Natural or Artificial Opening Endoscopic, Diagnostic (ICD-10-PCS; 2016-06-24)
DX: K92.2 Gastrointestinal hemorrhage, unspecified (principal); K83.1 Obstruction of bile duct; N17.9 Acute kidney failure, unspecified; I48.1 Persistent atrial fibrillation; E86.0 Dehydration; C17.0 Malignant neoplasm of duodenum; E03.9 Hypothyroidism, unspecified; I12.9 Hypertensive chronic kidney disease with stage 1 through stage 4 chronic kidney disease, or unspecified chronic kidney disease; I48.2 Chronic atrial fibrillation; E78.5 Hyperlipidemia, unspecified; D62 Acute posthemorrhagic anemia; E86.1 Hypovolemia; I45.10 Unspecified right bundle-branch block; J45.909 Unspecified asthma, uncomplicated; K21.9 Gastro-esophageal reflux disease without esophagitis; K44.9 Diaphragmatic hernia without obstruction or gangrene; M10.9 Gout, unspecified; M19.90 Unspecified osteoarthritis, unspecified site; M81.0 Age-related osteoporosis without current pathological fracture; N18.3 Chronic kidney disease, stage 3 (moderate); Z85.028 Personal history of other malignant neoplasm of stomach; Z85.850 Personal history of malignant neoplasm of thyroid; Z87.11 Personal history of peptic ulcer disease; Z88.6 Allergy status to analgesic agent; Z92.21 Personal history of antineoplastic chemotherapy; Z79.899 Other long term (current) drug therapy; Z79.52 Long term (current) use of systemic steroids
CPT/HCPCS: 36415; 43239; 70450; 71020; 72125; 74176; 80048; 80053; 81003; 82272; 82550; 82553; 83605; 83690; 83735; 84100; 84439; 84443; 84484; 85025; 85027; 85610; 85730; 86850; 86900; 86901; 86920; 87086; 88305; 88341; 88342; 93005; 93306; 94640; 94760; 96361; 96374; 99153; 99285

== ENCOUNTER 2016-07-17 15:36 | Emergency (ER) | payer MEDICARE ==
[2016-07-17] MEDS ORDERED: ONDANSETRON 4 MG/2 ML VIAL IVP STA (16:14)
[2016-07-17] MEDS ORDERED: HYDROmorphone 1 MG/ML 1 ML SYRINGE IVP STA ×4 (16:14→21:06)
[2016-07-17] MEDS ORDERED: ENALAPRILAT 1.25 MG/ML 1 ML VIAL IVP PRN (16:15)
--- NOTE | 2016-07-17 16:16 | ED ---
General Adult HPI - General Chief complaint: Nausea/Vomiting/Diarrhea Stated complaint: Dehydration. Abd pain Time Seen by Provider: 07/17/16 16:03 Source: patient, RN notes reviewed Mode of arrival: wheelchair Limitations: no limitations - History of Present Illness Initial comments: 86-year-old female presents to the emergency department with a chief complaint of nausea vomiting and abdominal pain. Patient has duodenal cancer. Patient states that she was treated with chemotherapy that ended last spring. Patient states that she has a duodenal stent and she recently had a drain placed in the gallbladder to help her drain that as well. Patient states today she started to have some abdominal pain she did have some nausea vomiting. She has not been eating and drinking as well. Patient states that she has had jaundice with this they do not know if there jaundice is worse today or not. She denies any fever chills this. She states that the pain and the fact that she wouldn't eat or drink anything was concerning them so they thought that she should be evaluated. Patient denies any recent fever, chills, shortness of breath, chest pain, back pain, numbness or tingling, dysuria or hematuria, constipation or diarrhea, headaches or visual changes, or any other current symptoms. - Related Data Home Medications Medication Instructions Recorded Confirmed Allopurinol [Zyloprim] 150 mg PO DAILY 12/12/13 07/17/16 Levothyroxine Sodium [Synthroid] 125 mcg PO DAILY 12/12/13 07/17/16 Montelukast [Singulair] 10 mg PO HS 12/12/13 07/17/16 Raloxifene [Evista] 60 mg PO DAILY 12/12/13 07/17/16 ALPRAZolam [Xanax] 0.25 mg PO Q8HR PRN 10/11/14 07/17/16 Calcium Carbonate [Tums] 500 mg PO QID PRN 06/01/16 07/17/16 Previous Rx's Medication Instructions Recorded traMADol HCl [Ultram] 50 mg PO Q6HR PRN #20 tab 01/30/15 Allergies Allergy/AdvReac Type Severity Reaction Status Date / Time aspirin Allergy Rash/Hives Verified 07/17/16 15:51 red dye Allergy Dyspnea Verified 07/17/16 15:51 metoprolol AdvReac Nausea & Verified 07/17/16 15:51 Vomiting Review of Systems ROS Statement: Those systems with pertinent positive or pertinent negative responses have been documented in the HPI. ROS Other: All systems not noted in ROS Statement are negative. Past Medical History Past Medical History: Atrial Fibrillation, Asthma, Cancer, GERD/Reflux, Hyperlipidemia, Hypertension, Osteoarthritis (OA), Renal Disease, Thyroid Disorder Additional Past Medical History / Comment(s): duodenal getting chemo(last tx August 2015), cancer, thyroid cancer 1960, gout, UTI, anemia, uti's (10-11-14 e coli), bakers cyst lt knee,osteoporosis History of Any Multi-Drug Resistant Organisms: None Reported Past Surgical History: Joint Replacement, Orthopedic Surgery Additional Past Surgical History / Comment(s): JUSTIN CATARACTS, THYROIDECTOMY, ARTHROSCOPY left knee, TOTAL LEFT KNEE, duodenal stent Past Anesthesia/Blood Transfusion Reactions: No Reported Reaction Additional Past Anesthesia/Blood Transfusion Reaction / Comment(s): BLOOD TRANSFUSION 10/12/14 Past Psychological History: Anxiety Smoking Status: Never smoker Past Alcohol Use History: None Reported Past Drug Use History: None Reported - Past Family History Mother Family Medical History: Diabetes Mellitus General Exam - General Exam Comments Initial Comments: General: The patient is awake and alert, in no distress, and does not appear acutely ill. Jaundice. Eye: Pupils are equal, round and reactive to light, extra-ocular movements are intact; there is normal conjunctiva bilaterally. No signs of icterus. Ears, nose, mouth and throat: There are moist mucous membranes and no oral lesions. Neck: The neck is supple, there is no tenderness. Cardiovascular: There is a regular rate and rhythm. No murmur, rub or gallop is appreciated. Respiratory: Lungs are clear to auscultation, respirations are non-labored, breath sounds are equal. No wheezes, stridor, rales, or rhonchi. Gastrointestinal: Soft, non-distended, diffusely abdomen without masses or organomegaly noted. There is no rebound or guarding present. No CVA tenderness. Bowel sounds are unremarkable. Back: There is no tenderness to palpation in the midline. There is no obvious deformity. No rashes noted. Musculoskeletal: Normal ROM, no tenderness, There is no pedal edema. There is no calf tenderness or swelling. Sensation intact. Pulses equal bilaterally 2+. Neurological: CN II-XII intact, There are no obvious motor or sensory deficits. Coordination appears grossly intact. Speech is normal. Skin: Skin is warm and dry and no rashes or lesions are noted. Psychiatric: Cooperative, appropriate mood & affect, normal judgment. Limitations: no limitations Course Vital Signs 07/17/16 07/17/16 15:49 18:22 Temperature 98.4 F 97.6 F Pulse Rate 89 72 Respiratory 16 18 Rate Blood Pressure 120/57 151/97 O2 Sat by Pulse 96 99 Oximetry EKG Findings - EKG Comments: EKG Findings:: Atrial fibrillation, ventricular rate 97, QRS duration 118, prolonged QT Medical Decision Making - Medical Decision Making 86-year-old male presents emergency Department with a chief complaint of nausea vomiting abdominal pain with a history of cancer. Patient's lab work and CAT scan are reviewed. At this time the patient does appear to have anemia that does appear to be chronic and actually improved compared to normal. Patient has elevated liver enzymes and bilirubin that actually does appear to be improving from previous lab work as well. Patient's CAT scan is reviewed that does show some degree within the stent. Unclear if this is due to ingested material versus tumor invasion. At this time due to the patient having a procedure at [facility] we will transfer her there for continued care. Discussed with family in agreement. - Lab Data Result diagrams: 07/17/16 16:40 07/17/16 16:40 Lab Results 07/17/16 07/17/16 07/17/16 Range/Units 16:40 16:40 16:40 WBC 6.2 (3.8-10.6) k/uL RBC 3.40 L (3.80-5.40) m/uL Hgb 10.0 L (11.4-16.0) gm/dL Hct 31.8 L (34.0-46.0) % MCV 93.7 (80.0-100.0) fL MCH 29.4 (25.0-35.0) pg MCHC 31.4 (31.0-37.0) g/dL RDW 15.6 H (11.5-15.5) % Plt Count 382 (150-450) k/uL Neutrophils % 78 % Lymphocytes % 14 % Monocytes % 4 % Eosinophils % 1 % Basophils % 1 % Neutrophils # 4.8 (1.3-7.7) k/uL Lymphocytes # 0.9 L (1.0-4.8) k/uL Monocytes # 0.3 (0-1.0) k/uL Eosinophils # 0.1 (0-0.7) k/uL Basophils # 0.1 (0-0.2) k/uL Hypochromasia Moderate Poikilocytosis Slight PT (9.0-12.0) sec INR (<1.1) APTT (22.0-30.0) sec Sodium 138 (137-145) mmol/L Potassium 4.9 (3.5-5.1) mmol/L Chloride 104 (98-107) mmol/L Carbon Dioxide 19 L (22-30) mmol/L Anion Gap 15 mmol/L BUN 51 H (7-17) mg/dL Creatinine 1.96 H (0.52-1.04) mg/dL Est GFR (MDRD) Af Amer 29 (>60 ml/min/1.73 sqM) Est GFR (MDRD) Non-Af 24 (>60 ml/min/1.73 sqM) Glucose 94 (74-99) mg/dL Plasma Lactic Acid Ayaz (0.7-2.0) mmol/L Calcium 9.8 (8.4-10.2) mg/dL Total Bilirubin 2.6 H (0.2-1.3) mg/dL AST 172 H (14-36) U/L ALT 208 H (9-52) U/L Alkaline Phosphatase 193 H (38-126) U/L Total Creatine Kinase 36 (30-135) U/L CK-MB (CK-2) 0.6 (0.0-2.4) ng/mL CK-MB (CK-2) Rel Index 1.7 Troponin I <0.012 (0.000-0.034) ng/mL Total Protein 7.4 (6.3-8.2) g/dL Albumin 3.7 (3.5-5.0) g/dL 07/17/16 07/17/16 Range/Units 16:40 16:40 WBC (3.8-10.6) k/uL RBC (3.80-5.40) m/uL Hgb (11.4-16.0) gm/dL Hct (34.0-46.0) % MCV (80.0-100.0) fL MCH (25.0-35.0) pg MCHC (31.0-37.0) g/dL RDW (11.5-15.5) % Plt Count (150-450) k/uL Neutrophils % % Lymphocytes % % Monocytes % % Eosinophils % % Basophils % % Neutrophils # (1.3-7.7) k/uL Lymphocytes # (1.0-4.8) k/uL Monocytes # (0-1.0) k/uL Eosinophils # (0-0.7) k/uL Basophils # (0-0.2) k/uL Hypochromasia Poikilocytosis PT 12.7 H (9.0-12.0) sec INR 1.3 (<1.1) APTT 24.1 (22.0-30.0) sec Sodium (137-145) mmol/L Potassium (3.5-5.1) mmol/L Chloride (98-107) mmol/L Carbon Dioxide (22-30) mmol/L Anion Gap mmol/L BUN (7-17) mg/dL Creatinine (0.52-1.04) mg/dL Est GFR (MDRD) Af Amer (>60 ml/min/1.73 sqM) Est GFR (MDRD) Non-Af (>60 ml/min/1.73 sqM) Glucose (74-99) mg/dL Plasma Lactic Acid Ayaz 1.9 (0.7-2.0) mmol/L Calcium (8.4-10.2) mg/dL Total Bilirubin (0.2-1.3) mg/dL AST (14-36) U/L ALT (9-52) U/L Alkaline Phosphatase (38-126) U/L Total Creatine Kinase (30-135) U/L CK-MB (CK-2) (0.0-2.4) ng/mL CK-MB (CK-2) Rel Index Troponin I (0.000-0.034) ng/mL Total Protein (6.3-8.2) g/dL Albumin (3.5-5.0) g/dL - Radiology Data Radiology results: report reviewed, image reviewed Disposition Clinical Impression: Dehydration, Anemia, Duodenal cancer Disposition: OTHER INSTITUTION NOT DEFINED Referrals: Zia Jackson DO [Primary Care Provider] - 1-2 days Time of Disposition: 18:30 - Out of Hospital Transfer - Req. Specs Out of Hospital Transfer - Requested Specifics: Other Non-Acute ([facility])
[2016-07-17] MEDS: SODIUM CHLORIDE 0.9% 500 ML IV SCH ×2 (16:52→18:24)
[2016-07-17 17:00] LABS: Basophils # (A) 0.1 k/uL (0-0.2); Basophils % (A) 1 %; CH 29.8; CHCM 31.9; Eosinophils # (A) 0.1 k/uL (0-0.7); Eosinophils % (A) 1 %; HCT 31.8 % (34.0-46.0); HDW 3.56; Hypochromasia Moderate; Luc # (Auto) 0.13; Luc % (Auto) 2; Lymphocytes # (A) 0.9 k/uL (1.0-4.8); Lymphocytes % (A) 14 %; MCH 29.4 pg (25.0-35.0); MCHC 31.4 g/dL (31.0-37.0); MCV 93.7 fL (80.0-100.0); Mean Platelet Volume 7.1; Monocytes # (A) 0.3 k/uL (0-1.0); Monocytes % (A) 4 %; Neutrophils # (A) 4.8 k/uL (1.3-7.7); Neutrophils % (A) 78 %; Poikilocytosis Slight; RDW 15.6 % (11.5-15.5); WBC 6.2 k/uL (3.8-10.6); WBC (Perox) 6.71
[2016-07-17 17:08] LABS: INR 1.3 (<1.1); Partial Thromboplastin Time 24.1 sec (22.0-30.0); Prothrombin Time 12.7 sec (9.0-12.0)
[2016-07-17 17:10] LABS: Calcium 9.8 mg/dL (8.4-10.2); Potassium 4.9 mmol/L (3.5-5.1); Total Bilirubin 2.6 mg/dL (0.2-1.3); Total Protein 7.4 g/dL (6.3-8.2)
[2016-07-17 17:14] LABS: Creatine Kinase 36 U/L (30-135)
[2016-07-17 17:27] LABS: Creatine Kinase MB 0.6 ng/mL (0.0-2.4); Troponin I <0.012 ng/mL (0.000-0.034)
--- NOTE | 2016-07-17 17:47 | CT ---
EXAMINATION TYPE: CT abdomen pelvis wo con DATE OF EXAM: 07/17/2016 5:31 PM COMPARISON: NONE HISTORY: Abdominal pain. Hx of deodenal stent for CA. CT DLP: 313.6 mGycm Automated exposure control for dose reduction was used. TECHNIQUE: Helical acquisition of images was performed from the lung bases through the pelvis. FINDINGS: The exam is limited due to lack of intravenous and oral contrast. LUNG BASES: Incidental note of a 3 mm pulmonary nodule within the left lung base on lung window serie s image 40. 2 other punctate noncalcified left basilar pulmonary nodules measuring 2 mm are also iden tified on lung windows on image 35 and 45 additional 2 mm right lower lobe pulmonary nodule is seen o n image 0 these are marked on the study. LIVER/GB/SPLEEN/STOMACH: Granulomatous changes are seen of the liver and spleen. Percutaneous cholecy stostomy tube terminates in the proximal duodenum and gastric stent is partially debris filled with a ir-fluid level approximately and circumferential debris distally. There is no evidence of proximal ga strectasis although a small hiatal hernia is noted again. Surrounding the stent there is eccentric wa ll thickening of the descending duodenum laterally as well as minimal inflammatory fat stranding. Pre viously described mild hepatic biliary ductal dilatation has improved. Gallbladder is present with no right upper quadrant fat stranding. PANCREAS: Again difficult to evaluate due to lack of intravenous contrast and stent placement. This i s unchanged from the prior exam. ADRENALS: No significant abnormality is seen. KIDNEYS: 3.4 cm left simple renal cyst appears unchanged in the interim. RETROPERITONEAL ADENOPATHY: There is redemonstration of a single prominent 1.0 cm short axis [place] creatic lymph node. REPRODUCTIVE ORGANS: No significant abnormality is seen URINARY BLADDER: No significant abnormality is seen. PELVIC ADENOPATHY: None visualized. OSSEOUS STRUCTURES: Again degenerative changes of the femoral acetabular joints and lumbosacral spin e are noted with a levoconvex scoliotic curvature of the lumbar spine. Compression deformity of the T 12 vertebral body is unchanged dating back to 11/22/2014. BOWEL: No significant abnormality is seen. OTHER: Subcutaneous soft tissue nodularity likely relates to sequela of subcutaneous injections. IMPRESSION: 1. Debris within the gastroduodenal stent with surrounding duodenal thickening and minimal inflammato ry fat stranding of the descending portion of the duodenum. Distally debris circumferentially fills t he stent lumen with no proximal gastrectasis. Again this debris may relate to ingested material or tu mor invasion. 2. Percutaneous cholecystostomy tube with its distal tip coiled in the duodenum. 3. Interval improvement of the previously noted intrahepatic biliary ductal dilatation. 4. Unchanged small hiatal hernia.
[2016-07-17 18:24] VITALS: RESP 18
[2016-07-17 21:42] LABS: Appearance,Urine Clear (Clear); Bacteria,Urine Rare /hpf; Bilirubin,Urine Negative (Negative); Glucose,Urine (UA) Negative (Negative); Ketones,Urine Negative (Negative); Leukocyte Esterase,Urine Moderate (Negative); Mucus,Urine Rare /hpf; Nitrite,Urine Negative (Negative); Particle Count 4025; Protein,Urine Trace (Negative); RBC,Urine 3 /hpf (0-5); Specific Gravity,Urine 1.011 (1.001-1.035); Squamous Epithelial Cell,Urine <1 /hpf (0-4); UA Billing (MACRO vs. MICRO) MICRO; Urobilinogen,Urine <2.0 mg/dL (<2.0); WBC,Urine 38 /hpf (0-5)
[2016-07-17 22:05] VITALS: BP 123/68; PULSE 90; TEMP 98.4
== END 2016-07-17 22:19 | disposition other institution (70) ==
LOC: EC 15:36
DX: E86.0 Dehydration (principal); C17.0 Malignant neoplasm of duodenum; D64.9 Anemia, unspecified; I48.91 Unspecified atrial fibrillation; M81.0 Age-related osteoporosis without current pathological fracture; M10.9 Gout, unspecified; F41.9 Anxiety disorder, unspecified; E07.9 Disorder of thyroid, unspecified; Z88.6 Allergy status to analgesic agent; Z79.899 Other long term (current) drug therapy
CPT/HCPCS: 36415; 93005; 80053; 82550; 82553; 83605; 84484; 85025; 85610; 85730; 81001; 87040; 87086; 74176; 99285; 96374; 96375; 96376 ×3; 96361 ×2; J2405; J1170

== ENCOUNTER 2016-08-09 15:03 | Emergency (ER) | payer MEDICARE ==
[2016-08-09] MEDS ORDERED: ONDANSETRON 4 MG/2 ML VIAL IVP STA (15:31)
[2016-08-09] MEDS ORDERED: SODIUM CHLORIDE 0.9% 1,000 ML IV STA (15:31)
[2016-08-09] MEDS ORDERED: HYDROmorphone 1 MG/ML 1 ML SYRINGE IVP STA (15:31)
[2016-08-09 16:02] LABS: Basophils # (A) 0.1 k/uL (0-0.2); Basophils % (A) 1 %; CH 28.7; CHCM 31.8; Eosinophils # (A) 0.2 k/uL (0-0.7); Eosinophils % (A) 4 %; HCT 32.1 % (34.0-46.0); HDW 3.28; HGB 10.3 gm/dL (11.4-16.0); Hypochromasia Slight; Luc # (Auto) 0.17; Luc % (Auto) 3; Lymphocytes % (A) 16 %; MCV 90.4 fL (80.0-100.0); Mean Platelet Volume 7.6; Monocytes # (A) 0.3 k/uL (0-1.0); Monocytes % (A) 5 %; Neutrophils # (A) 4.4 k/uL (1.3-7.7); Neutrophils % (A) 71 %; RBC 3.55 m/uL (3.80-5.40); RDW 15.5 % (11.5-15.5); WBC 6.1 k/uL (3.8-10.6); WBC (Perox) 6.38
[2016-08-09 16:10] LABS: INR 1.4 (<1.1); Prothrombin Time 13.7 sec (9.0-12.0)
[2016-08-09 16:14] LABS: Calcium 9.4 mg/dL (8.4-10.2); Potassium 4.4 mmol/L (3.5-5.1); Total Bilirubin 1.4 mg/dL (0.2-1.3); Total Protein 6.8 g/dL (6.3-8.2)
[2016-08-09 16:23] LABS: Creatine Kinase 20 U/L (30-135)
--- NOTE | 2016-08-09 16:33 | XR ---
EXAMINATION TYPE: XR chest 2V DATE OF EXAM: 08/09/2016 4:28 PM COMPARISON: June 18, 2016 HISTORY: Weakness TECHNIQUE: Frontal and lateral views of the chest are obtained. FINDINGS: There is no heart failure nor confluent pneumonic infiltrate. Costophrenic angles are marvin r. There are no hilar masses. There are chest leads. There is mild anterior wedging of a midthoracic vertebra. IMPRESSION: No active cardiopulmonary disease. Old mild compression fracture of T9. No change compar ed to last exam. Old right rib fractures noted.
[2016-08-09 16:37] LABS: Creatine Kinase MB 0.4 ng/mL (0.0-2.4); Troponin I <0.012 ng/mL (0.000-0.034)
--- NOTE | 2016-08-09 17:18 | ED ---
Weakness HPI - General Chief complaint: Weakness Stated complaint: Pain/Weakness Time Seen by Provider: 08/09/16 15:24 Source: patient, family Mode of arrival: wheelchair Limitations: no limitations - History of Present Illness Initial comments: She has a history of adenocarcinoma of the duodenum, she does take pain medications regularly she ran out of her pain medications today also complaining about feeling weak though he also generalized weakness she denies any headache no chest pain or shortness of breath he abdominal pain over the duodenal area and generalized abdominal pain is chronic cough, ongoing for over a year now she hasn't had no a active treatment for her cancer 1.5 years at this point - Related Data Home Medications Medication Instructions Recorded Confirmed Allopurinol [Zyloprim] 150 mg PO DAILY 12/12/13 08/09/16 Raloxifene [[place]] 60 mg PO DAILY 12/12/13 08/09/16 ALPRAZolam [Xanax] 0.25 mg PO DAILY PRN 10/11/14 08/09/16 Hydrocodone/Acetaminophen [[place] 1 tab PO Q6HR PRN 08/09/16 08/09/16 5-325] Levothyroxine Sodium [Synthroid] 125 mcg PO DAILY 08/09/16 08/09/16 Polyethylene Glycol 3350 [Miralax] 17 gm PO DAILY PRN 08/09/16 08/09/16 Allergies Allergy/AdvReac Type Severity Reaction Status Date / Time aspirin Allergy Rash/Hives Verified 08/09/16 15:58 red dye Allergy Dyspnea Verified 08/09/16 15:58 metoprolol AdvReac Nausea & Verified 08/09/16 15:58 Vomiting Review of Systems ROS Statement: Those systems with pertinent positive or pertinent negative responses have been documented in the HPI. ROS Other: All systems not noted in ROS Statement are negative. Past Medical History Past Medical History: Atrial Fibrillation, Asthma, Cancer, GERD/Reflux, Hyperlipidemia, Hypertension, Osteoarthritis (OA), Renal Disease, Thyroid Disorder Additional Past Medical History / Comment(s): duodenal getting chemo(last tx August 2015), cancer, thyroid cancer 1960, gout, UTI, anemia, uti's (10-11-14 e coli), bakers cyst lt knee,osteoporosis History of Any Multi-Drug Resistant Organisms: None Reported Past Surgical History: Joint Replacement, Orthopedic Surgery Additional Past Surgical History / Comment(s): JUSTIN CATARACTS, THYROIDECTOMY, ARTHROSCOPY left knee, TOTAL LEFT KNEE, duodenal stent Past Anesthesia/Blood Transfusion Reactions: No Reported Reaction Additional Past Anesthesia/Blood Transfusion Reaction / Comment(s): BLOOD TRANSFUSION 10/12/14 Past Psychological History: Anxiety Smoking Status: Never smoker Past Alcohol Use History: None Reported Past Drug Use History: None Reported - Past Family History Mother Family Medical History: Diabetes Mellitus General Exam - General Exam Comments Initial Comments: General: The patient is awake and alert, he looks pale and sleepy Skin: Skin is warm and dry and no rashes or lesions are noted. Eye: Pupils are equal, round and reactive to light, extra-ocular movements are intact; there is normal conjunctiva bilaterally. Ears, nose, mouth and throat: There are moist mucous membranes and no oral lesions. Neck: The neck is supple, there is no tenderness Cardiovascular: There is a regular rate and rhythm. No murmur, rub or gallop is appreciated. Respiratory: To auscultation bilateral, crease breath sounds bilaterally Gastrointestinal: The patient is diffusely tender more so on the right side of the abdomen over the liver and/or Nicole area, positive bowel sounds. Back: There is no tenderness to palpation in the midline. There is no obvious deformity. Musculoskeletal: Normal ROM, no tenderness, There is no pedal edema. There is no calf tenderness or swelling. No cords were appreciated. Neurological: CN II-XII intact, Cranial nerves III through XII are intact. There are no obvious motor or sensory deficits. Coordination appears grossly intact. Speech is normal. Psychiatric: Cooperative, appropriate mood & affect, normal judgment. Limitations: no limitations Course Vital Signs 08/09/16 08/09/16 15:10 17:15 Temperature 98.5 F Pulse Rate 56 L 90 Respiratory 20 18 Rate Blood Pressure 118/58 134/62 O2 Sat by Pulse 100 100 Oximetry Had a chat with the patient as well as family we reviewed all the investigations together reveal a new oral pain medications considering the adenocarcinoma of the duodenum and will give her pain meds until she sees Dr. Jackson or her cancer doctor and she also has a bladder infection or perhaps some antibiotics for - Reevaluation(s) Reevaluation #1: 08/09/16 17:20 At this point CBC, INR, creatinine, total bili, transaminases and chest x-ray are unremarkable and functions as well as a kidney functions are compared with the previous labs there and the right more 08/09/16 17:42 Patient and the daughter COMFORTABLE going home with pain medications and antibiotics with a bladder infection EKG Findings - EKG Comments: EKG Findings:: EKG is a defibrillation she has a history of ventricular fibrillation ventricular rate is 93 QRS duration is 122 QTC QT/QTc is 372/462 review of this EKG does not show any ST depression or ST elevation in today's EKG was compared with EKG done on now 07/17/2016 Medical Decision Making - Lab Data Result diagrams: 08/09/16 15:53 08/09/16 15:53 Lab Results 08/09/16 08/09/16 08/09/16 Range/Units 15:53 15:53 15:53 WBC 6.1 (3.8-10.6) k/uL RBC 3.55 L (3.80-5.40) m/uL Hgb 10.3 L (11.4-16.0) gm/dL Hct 32.1 L (34.0-46.0) % MCV 90.4 (80.0-100.0) fL MCH 29.0 (25.0-35.0) pg MCHC 32.0 (31.0-37.0) g/dL RDW 15.5 (11.5-15.5) % Plt Count 352 (150-450) k/uL Neutrophils % 71 % Lymphocytes % 16 % Monocytes % 5 % Eosinophils % 4 % Basophils % 1 % Neutrophils # 4.4 (1.3-7.7) k/uL Lymphocytes # 1.0 (1.0-4.8) k/uL Monocytes # 0.3 (0-1.0) k/uL Eosinophils # 0.2 (0-0.7) k/uL Basophils # 0.1 (0-0.2) k/uL Hypochromasia Slight PT (9.0-12.0) sec INR (<1.1) APTT (22.0-30.0) sec Sodium 137 (137-145) mmol/L Potassium 4.4 (3.5-5.1) mmol/L Chloride 99 (98-107) mmol/L Carbon Dioxide 24 (22-30) mmol/L Anion Gap 14 mmol/L BUN 40 H (7-17) mg/dL Creatinine 1.90 H (0.52-1.04) mg/dL Est GFR (MDRD) Af Amer 30 (>60 ml/min/1.73 sqM) Est GFR (MDRD) Non-Af 25 (>60 ml/min/1.73 sqM) Glucose 90 (74-99) mg/dL Calcium 9.4 (8.4-10.2) mg/dL Total Bilirubin 1.4 H (0.2-1.3) mg/dL AST 92 H (14-36) U/L ALT 128 H (9-52) U/L Alkaline Phosphatase 156 H (38-126) U/L Total Creatine Kinase 20 L (30-135) U/L CK-MB (CK-2) 0.4 (0.0-2.4) ng/mL CK-MB (CK-2) Rel Index 2.0 Troponin I <0.012 (0.000-0.034) ng/mL Total Protein 6.8 (6.3-8.2) g/dL Albumin 3.5 (3.5-5.0) g/dL Urine Color Urine Appearance (Clear) Urine pH (5.0-8.0) Ur Specific [place] (1.001-1.035) Urine Protein (Negative) Urine Glucose (UA) (Negative) Urine Ketones (Negative) Urine Blood (Negative) Urine Nitrite (Negative) Urine Bilirubin (Negative) Urine Urobilinogen (<2.0) mg/dL Ur Leukocyte Esterase (Negative) Urine RBC (0-5) /hpf Urine WBC (0-5) /hpf Ur Squamous Epith Cells (0-4) /hpf Urine Mucus (None) /hpf 08/09/16 08/09/16 Range/Units 15:53 17:11 WBC (3.8-10.6) k/uL RBC (3.80-5.40) m/uL Hgb (11.4-16.0) gm/dL Hct (34.0-46.0) % MCV (80.0-100.0) fL MCH (25.0-35.0) pg MCHC (31.0-37.0) g/dL RDW (11.5-15.5) % Plt Count (150-450) k/uL Neutrophils % % Lymphocytes % % Monocytes % % Eosinophils % % Basophils % % Neutrophils # (1.3-7.7) k/uL Lymphocytes # (1.0-4.8) k/uL Monocytes # (0-1.0) k/uL Eosinophils # (0-0.7) k/uL Basophils # (0-0.2) k/uL Hypochromasia PT 13.7 H (9.0-12.0) sec INR 1.4 (<1.1) APTT 25.0 (22.0-30.0) sec Sodium (137-145) mmol/L Potassium (3.5-5.1) mmol/L Chloride (98-107) mmol/L Carbon Dioxide (22-30) mmol/L Anion Gap mmol/L BUN (7-17) mg/dL Creatinine (0.52-1.04) mg/dL Est GFR (MDRD) Af Amer (>60 ml/min/1.73 sqM) Est GFR (MDRD) Non-Af (>60 ml/min/1.73 sqM) Glucose (74-99) mg/dL Calcium (8.4-10.2) mg/dL Total Bilirubin (0.2-1.3) mg/dL AST (14-36) U/L ALT (9-52) U/L Alkaline Phosphatase (38-126) U/L Total Creatine Kinase (30-135) U/L CK-MB (CK-2) (0.0-2.4) ng/mL CK-MB (CK-2) Rel Index Troponin I (0.000-0.034) ng/mL Total Protein (6.3-8.2) g/dL Albumin (3.5-5.0) g/dL Urine Color Yellow Urine Appearance Clear (Clear) Urine pH 5.0 (5.0-8.0) Ur Specific [place] 1.012 (1.001-1.035) Urine Protein 1+ H (Negative) Urine Glucose (UA) Negative (Negative) Urine Ketones Negative (Negative) Urine Blood Negative (Negative) Urine Nitrite Negative (Negative) Urine Bilirubin Negative (Negative) Urine Urobilinogen <2.0 (<2.0) mg/dL Ur Leukocyte Esterase Small H (Negative) Urine RBC 1 (0-5) /hpf Urine WBC 10 H (0-5) /hpf Ur Squamous Epith Cells 1 (0-4) /hpf Urine Mucus Rare H (None) /hpf Disposition Clinical Impression: Abdominal pain, Generalized weakness, Cystitis Disposition: HOME SELF-CARE Condition: Fair Instructions: Abdominal Pain (ED) Referrals: Zia Jackson DO [Primary Care Provider] - 1-2 days
[2016-08-09 17:31] LABS: Appearance,Urine Clear (Clear); Bilirubin,Urine Negative (Negative); Glucose,Urine (UA) Negative (Negative); Ketones,Urine Negative (Negative); Leukocyte Esterase,Urine Small (Negative); Mucus,Urine Rare /hpf; Nitrite,Urine Negative (Negative); Particle Count 5958; Protein,Urine 1+ (Negative); RBC,Urine 1 /hpf (0-5); Specific Gravity,Urine 1.012 (1.001-1.035); Squamous Epithelial Cell,Urine 1 /hpf (0-4); UA Billing (MACRO vs. MICRO) MICRO; Urobilinogen,Urine <2.0 mg/dL (<2.0); WBC,Urine 10 /hpf (0-5)
[2016-08-09 18:05] VITALS: BP 130/72; PULSE 62; RESP 16; TEMP 97.8
[2016-08-09] MEDS ORDERED: HYDROmorphone 1 MG/ML 1 ML SYRINGE IM STA (18:31)
[2016-08-09] MEDS ORDERED: HYDROcodone/APAP 5-325MG 1 EACH TAB PO STA (18:32)
== END 2016-08-09 18:46 | disposition home or self-care (01) ==
LOC: EC 15:03
DX: N30.90 Cystitis, unspecified without hematuria (principal); R53.1 Weakness; C17.0 Malignant neoplasm of duodenum; E07.9 Disorder of thyroid, unspecified; M81.0 Age-related osteoporosis without current pathological fracture; M10.9 Gout, unspecified; M19.90 Unspecified osteoarthritis, unspecified site; Z85.850 Personal history of malignant neoplasm of thyroid; F41.9 Anxiety disorder, unspecified; Z79.899 Other long term (current) drug therapy; Z88.6 Allergy status to analgesic agent
CPT/HCPCS: 36415; 93005; 80053; 82550; 82553; 84484; 85025; 85610; 85730; 81001; 71020; 99285; 96374; 96375; 96361 ×3; 96372; J2405; J1170

== ENCOUNTER 2016-08-29 23:54 | Inpatient (IN) | payer MEDICARE ==
[2016-08-30] MEDS ORDERED: SODIUM CHLORIDE 0.9% 500 ML IV STA (00:51)
[2016-08-30] MEDS ORDERED: ACETAMINOPHEN TAB 325 MG TAB PO STA (00:51)
[2016-08-30 01:10] LABS: Anisocytosis Slight; Basophils % (A) 0 %; CHCM 31.5; Eosinophils # (A) 0.1 k/uL (0-0.7); Eosinophils % (A) 1 %; HCT 27.7 % (34.0-46.0); HDW 3.05; Hypochromasia Slight; Luc # (Auto) 0.08; Luc % (Auto) 1; Lymphocytes # (A) 0.7 k/uL (1.0-4.8); Lymphocytes % (A) 11 %; MCH 27.9 pg (25.0-35.0); MCHC 31.4 g/dL (31.0-37.0); Monocytes # (A) 0.6 k/uL (0-1.0); Monocytes % (A) 9 %; Neutrophils % (A) 78 %; RBC 3.11 m/uL (3.80-5.40); RDW 16.3 % (11.5-15.5); WBC 6.4 k/uL (3.8-10.6); WBC (Perox) 6.44
[2016-08-30 01:12] LABS: HGB 8.7 gm/dL (11.4-16.0)
[2016-08-30 01:19] LABS: Calcium 8.7 mg/dL (8.4-10.2); Total Bilirubin 1.1 mg/dL (0.2-1.3); Total Protein 6.1 g/dL (6.3-8.2)
[2016-08-30 01:20] LABS: Potassium 4.6 mmol/L (3.5-5.1)
[2016-08-30 01:34] LABS: Appearance,Urine Cloudy (Clear); Bilirubin,Urine Negative (Negative); Glucose,Urine (UA) Negative (Negative); Ketones,Urine 1+ (Negative); Leukocyte Esterase,Urine Large (Negative); Mucus,Urine Rare /hpf; Nitrite,Urine Negative (Negative); PH, Urine 5.5 (5.0-8.0); Particle Count 7793; Protein,Urine 1+ (Negative); RBC,Urine 4 /hpf (0-5); Specific Gravity,Urine 1.015 (1.001-1.035); Squamous Epithelial Cell,Urine 3 /hpf (0-4); UA Billing (MACRO vs. MICRO) MICRO; Urobilinogen,Urine <2.0 mg/dL (<2.0); WBC,Urine 66 /hpf (0-5)
--- NOTE | 2016-08-30 02:26 | XR ---
EXAM: XR Chest, 1 View. CLINICAL HISTORY: Reason: fever TECHNIQUE: Frontal view of the chest. COMPARISON: CXR 08/09/16 FINDINGS: Lungs: Bilateral reticular markings which may represent interstitial infiltrates. Pleural space: Unremarkable. No pneumothorax. Heart: Unremarkable. No cardiomegaly. Mediastinum: Unremarkable. Bones/joints: Unremarkable. IMPRESSION: Bilateral reticular markings which may represent interstitial infiltrates. Findings may represent edema or other acute interstitial process.
[2016-08-30] MEDS ORDERED: ONDANSETRON 4 MG/2 ML VIAL IVP PRN (04:17)
[2016-08-30] MEDS ORDERED: NALOXONE 0.4 MG/ML 1 ML VIAL IV PRN (04:17)
[2016-08-30] MEDS ORDERED: ACETAMINOPHEN TAB 325 MG TAB PO PRN (04:17)
[2016-08-30] MEDS ORDERED: HYDROmorphone 1 MG/ML 1 ML SYRINGE IV PRN (04:17)
[2016-08-30] MEDS ORDERED: HYDROcodone/APAP 5-325MG 1 EACH TAB PO PRN (04:20)
[2016-08-30] MEDS ORDERED: ALPRAZolam 0.25 MG TAB PO PRN (04:20)
[2016-08-30] MEDS ORDERED: POLYETHYLENE GLYCOL 3350 17 GM POWD.PACK PO PRN (04:20)
--- NOTE | 2016-08-30 04:34 | ED ---
Fever HPI - General Chief Complaint: Fever Stated Complaint: Fever/Pain Time Seen by Provider: 08/30/16 00:22 Source: patient, family Mode of arrival: wheelchair Limitations: no limitations - History of Present Illness Initial Comments: This patient is an 86-year-old woman who presents to be evaluated for fever and body aches that 1 going on over the course the past day. She denies any focal area of pain but just states that everything feels achy. Family states she has not been active as usual. She appears to have developed the fever and chills over the course of tonight. Patient is denying chest pain, dyspnea, and productive cough. She denies vomiting or diarrhea. Patient has not noted any urinary changes. MD Complaint: fever, weakness Onset/Timin -: days(s) Temperature Source: subjective Associated Symptoms: chills, myalgias Treatments Prior to Arrival: none - Related Data Home Medications Medication Instructions Recorded Confirmed Allopurinol [Zyloprim] 150 mg PO DAILY 12/12/13 08/30/16 ALPRAZolam [Xanax] 0.25 mg PO DAILY PRN 10/11/14 08/30/16 Hydrocodone/Acetaminophen [[place] 1 tab PO Q6HR PRN 08/09/16 08/30/16 5-325] Levothyroxine Sodium [Synthroid] 125 mcg PO DAILY 08/09/16 08/30/16 Polyethylene Glycol 3350 [Miralax] 17 gm PO DAILY PRN 08/09/16 08/30/16 HYDROmorphone [Dilaudid] 2 mg PO Q6H PRN 08/30/16 08/30/16 Allergies Allergy/AdvReac Type Severity Reaction Status Date / Time aspirin Allergy Rash/Hives Verified 08/30/16 00:01 red dye Allergy Dyspnea Verified 08/30/16 00:01 metoprolol AdvReac Nausea & Verified 08/30/16 00:01 Vomiting Review of Systems ROS Statement: Those systems with pertinent positive or pertinent negative responses have been documented in the HPI. ROS Other: All systems not noted in ROS Statement are negative. Constitutional: Reports: fever, chills ENT: Denies: throat pain Respiratory: Denies: cough, dyspnea, wheezes Cardiovascular: Reports: edema. Denies: chest pain, palpitations, syncope Gastrointestinal: Denies: abdominal pain, vomiting, diarrhea Genitourinary: Denies: dysuria, hematuria Musculoskeletal: Reports: myalgia. Denies: back pain Skin: Denies: rash Neurological: Reports: weakness. Denies: headache, numbness Past Medical History Past Medical History: Atrial Fibrillation, Asthma, Cancer, GERD/Reflux, Hyperlipidemia, Hypertension, Osteoarthritis (OA), Renal Disease, Thyroid Disorder Additional Past Medical History / Comment(s): duodenal getting chemo(last tx August 2015), cancer, thyroid cancer 1960, gout, UTI, anemia, uti's (10-11-14 e coli), bakers cyst lt knee,osteoporosis History of Any Multi-Drug Resistant Organisms: None Reported Past Surgical History: Joint Replacement, Orthopedic Surgery Additional Past Surgical History / Comment(s): JUSTIN CATARACTS, THYROIDECTOMY, ARTHROSCOPY left knee, TOTAL LEFT KNEE, duodenal stent Past Anesthesia/Blood Transfusion Reactions: No Reported Reaction Additional Past Anesthesia/Blood Transfusion Reaction / Comment(s): BLOOD TRANSFUSION 10/12/14 Past Psychological History: Anxiety Smoking Status: Never smoker Past Alcohol Use History: None Reported Past Drug Use History: None Reported - Past Family History Mother Family Medical History: Diabetes Mellitus General Exam Limitations: no limitations General appearance: alert, cachectic Head exam: Present: atraumatic, normocephalic Eye exam: Present: normal appearance. Absent: scleral icterus, conjunctival injection ENT exam: Present: mucous membranes dry Neck exam: Present: normal inspection, full ROM Respiratory exam: Present: normal lung sounds bilaterally. Absent: respiratory distress, wheezes, rales, rhonchi, stridor Cardiovascular Exam: Present: normal rhythm, tachycardia, normal heart sounds. Absent: systolic murmur, diastolic murmur, rubs, gallop GI/Abdominal exam: Present: soft, other (There is a draining tube from the right upper quadrant.). Absent: distended, tenderness, guarding, rebound Extremities exam: Present: normal inspection, normal capillary refill. Absent: pedal edema, calf tenderness Neurological exam: Present: alert Skin exam: Present: warm, dry, intact, normal color. Absent: rash Course Vital Signs 08/29/16 08/30/16 08/30/16 23:57 02:15 05:01 Temperature 100.3 F H 100.1 F H 98.8 F Pulse Rate 111 H 106 H 93 Respiratory 20 16 16 Rate Blood Pressure 133/58 117/61 112/53 O2 Sat by Pulse 99 97 99 Oximetry Medical Decision Making - Medical Decision Making Patient is an 86-year-old woman presenting with fever, found to have urinary tract infection. Patient started on antibiotics and admitted. Cultures are pending. - Lab Data Result diagrams: 08/30/16 00:36 08/30/16 00:36 Lab Results 08/30/16 08/30/16 08/30/16 Range/Units 00:36 00:36 00:36 WBC 6.4 (3.8-10.6) k/uL RBC 3.11 L (3.80-5.40) m/uL Hgb 8.7 L D (11.4-16.0) gm/dL Hct 27.7 L (34.0-46.0) % MCV 89.0 (80.0-100.0) fL MCH 27.9 (25.0-35.0) pg MCHC 31.4 (31.0-37.0) g/dL RDW 16.3 H (11.5-15.5) % Plt Count 263 (150-450) k/uL Neutrophils % 78 % Lymphocytes % 11 % Monocytes % 9 % Eosinophils % 1 % Basophils % 0 % Neutrophils # 5.0 (1.3-7.7) k/uL Lymphocytes # 0.7 L (1.0-4.8) k/uL Monocytes # 0.6 (0-1.0) k/uL Eosinophils # 0.1 (0-0.7) k/uL Basophils # 0.0 (0-0.2) k/uL Hypochromasia Slight Anisocytosis Slight Sodium 137 (137-145) mmol/L Potassium 4.6 (3.5-5.1) mmol/L Chloride 105 (98-107) mmol/L Carbon Dioxide 22 (22-30) mmol/L Anion Gap 10 mmol/L BUN 17 (7-17) mg/dL Creatinine 1.10 H (0.52-1.04) mg/dL Est GFR (MDRD) Af Amer 57 (>60 ml/min/1.73 sqM) Est GFR (MDRD) Non-Af 47 (>60 ml/min/1.73 sqM) Glucose 95 (74-99) mg/dL Plasma Lactic Acid [place] 1.2 (0.7-2.0) mmol/L Calcium 8.7 (8.4-10.2) mg/dL Total Bilirubin 1.1 (0.2-1.3) mg/dL AST 33 (14-36) U/L ALT 30 (9-52) U/L Alkaline Phosphatase 93 (38-126) U/L Total Protein 6.1 L (6.3-8.2) g/dL Albumin 2.7 L (3.5-5.0) g/dL Urine Color Urine Appearance (Clear) Urine pH (5.0-8.0) Ur Specific [place] (1.001-1.035) Urine Protein (Negative) Urine Glucose (UA) (Negative) Urine Ketones (Negative) Urine Blood (Negative) Urine Nitrite (Negative) Urine Bilirubin (Negative) Urine Urobilinogen (<2.0) mg/dL Ur Leukocyte Esterase (Negative) Urine RBC (0-5) /hpf Urine WBC (0-5) /hpf Ur Squamous Epith Cells (0-4) /hpf Urine Mucus (None) /hpf 08/30/16 Range/Units 01:24 WBC (3.8-10.6) k/uL RBC (3.80-5.40) m/uL Hgb (11.4-16.0) gm/dL Hct (34.0-46.0) % MCV (80.0-100.0) fL MCH (25.0-35.0) pg MCHC (31.0-37.0) g/dL RDW (11.5-15.5) % Plt Count (150-450) k/uL Neutrophils % % Lymphocytes % % Monocytes % % Eosinophils % % Basophils % % Neutrophils # (1.3-7.7) k/uL Lymphocytes # (1.0-4.8) k/uL Monocytes # (0-1.0) k/uL Eosinophils # (0-0.7) k/uL Basophils # (0-0.2) k/uL Hypochromasia Anisocytosis Sodium (137-145) mmol/L Potassium (3.5-5.1) mmol/L Chloride (98-107) mmol/L Carbon Dioxide (22-30) mmol/L Anion Gap mmol/L BUN (7-17) mg/dL Creatinine (0.52-1.04) mg/dL Est GFR (MDRD) Af Amer (>60 ml/min/1.73 sqM) Est GFR (MDRD) Non-Af (>60 ml/min/1.73 sqM) Glucose (74-99) mg/dL Plasma Lactic Acid [place] (0.7-2.0) mmol/L Calcium (8.4-10.2) mg/dL Total Bilirubin (0.2-1.3) mg/dL AST (14-36) U/L ALT (9-52) U/L Alkaline Phosphatase (38-126) U/L Total Protein (6.3-8.2) g/dL Albumin (3.5-5.0) g/dL Urine Color Yellow Urine Appearance Cloudy H (Clear) Urine pH 5.5 (5.0-8.0) Ur Specific [place] 1.015 (1.001-1.035) Urine Protein 1+ H (Negative) Urine Glucose (UA) Negative (Negative) Urine Ketones 1+ H (Negative) Urine Blood Trace H (Negative) Urine Nitrite Negative (Negative) Urine Bilirubin Negative (Negative) Urine Urobilinogen <2.0 (<2.0) mg/dL Ur Leukocyte Esterase Large H (Negative) Urine RBC 4 (0-5) /hpf Urine WBC 66 H (0-5) /hpf Ur Squamous Epith Cells 3 (0-4) /hpf Urine Mucus Rare H (None) /hpf Disposition Clinical Impression: Urinary tract infection Disposition: ADMITTED IP TO THIS HOSP Condition: Poor
[2016-08-30 06:02] VITALS: BMI 22.9
[2016-08-30] MEDS: SODIUM CHLORIDE 0.9% 1,000 ML IV SCH (06:14)
[2016-08-30] MEDS ORDERED: LEVOTHYROXINE 125 MCG TAB PO SCH (09:00)
[2016-08-30] MEDS: ALLOPURINOL 300 MG TAB PO SCH (09:26)
[2016-08-30] MEDS ORDERED: KETOROLAC 30 MG/ML 1 ML VIAL IVP PRN (10:47)
[2016-08-30] MEDS ORDERED: ONDANSETRON 4 MG TAB PO PRN (11:32)
[2016-08-30] MEDS: HYDROmorphone 1 MG/ML 1 ML SYRINGE IVP PRN ×4 (12:24→22:53)
--- NOTE | 2016-08-30 13:42 | HP ---
DATE OF ADMISSION: 08/30/2016 Patient is an 86-year-old female is actually admitted for possibility of urinary tract infection, 86-year-old, came to the ER because of generalized weakness and pedal edema, although I did not see any much of pedal edema and patient was actually receiving IV fluids at this point of time and patient denied any dysuria, urinary frequency. Patient was having generalized body aches. The patient was found to have fever of 100.1 and 100.3 and was given Rocephin last night. Patient is complaining of severe shoulder pain, left shoulder pain, passive active movements are restricted, possibly because of severe osteoarthritis. Had extensive discussion with the patient and patient has biliary drain in place. 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 Apparently patient has metastatic cancer. Even the metastatic work-up was not done because there were no plans of starting her on chemotherapy. The only option we have is palliative care and hospice. Same thing was discussed with the patient. We will continue with Dilaudid q. 2 hourly as well as add Ketorolac and GI prophylaxis and I discussed regarding the CODE STATUS. Patient was made DO NOT RESUSCITATE and patient wanted hospice. At this point of time, Patient is considered as comfort care and we will consult hospice today. I had extensive discussion with the patient and one of the daughters at bedside, although the other daughter who mostly makes her medical decisions is not at bedside, although patient can make her own decisions at this point of time. I am in the process of obtaining Medical records from [facility] to see what kind of evaluation was done at the other place and if needed we will obtain a consultation from oncology to see if there are any other any further options, which in the past patient was evaluated for and mostly looks like the only option is comfort care and hospice and palliative care at this point of time. REVIEW OF SYSTEMS: CONSTITUTIONAL: As described in HPI. HEENT: No recent visual problems or hearing problems. Denied any sore throat. CARDIOVASCULAR: No chest pain, orthopnea, PND, no palpitations, no syncope. PULMONARY: No shortness of breath, no cough, no hemoptysis. GASTROINTESTINAL: No diarrhea, no nausea, no vomiting, no abdominal pain. Normoactive bowel sounds. NEUROLOGICAL: No headaches, no weakness, no numbness. HEMATOLOGICAL: Denies any bleeding or petechiae. GENITOURINARY: Denies any burning micturition, frequency, or urgency. MUSCULOSKELETAL/RHEUMATOLOGICAL: As described in HPI ENDOCRINE: Denies any polyuria or polydipsia. The rest of the 14 point review of systems is negative. Home medications include: 1. Allopurinol. 2. Alprazolam. 3. Hydrocodone acetaminophen. 4. Levothyroxine. 5. Polyethylene glycol. 6. Hydromorphone. 7. Aspirin. 8. Metoprolol. In the past medical history is significant for atrial fibrillation, asthma, gastroesophageal reflux disease, hyperlipidemia, hypertension, osteoarthritis, thyroid disorder, joint replacement surgery, orthopedic surgery, anxiety disorder. SOCIAL HISTORY: Denied any smoking, alcohol abuse and drug abuse. FAMILY HISTORY: Mother had diabetes mellitus. PHYSICAL EXAMINATION: VITAL SIGNS: Temperature 97.6, pulse of 92, respiratory rate of 16, blood pressure is 96/55. GENERAL: Alert and oriented x3 in. The patient is thin built cachectic. HEENT: Pupils are round and equally reacting to light. EOMI. No scleral icterus. No conjunctival pallor. Normocephalic, atraumatic. No pharyngeal erythema. No thyromegaly. CARDIOVASCULAR: S1 and S2 present. No murmurs, rubs, or gallops. PULMONARY: Chest is clear to auscultation, no wheezing or crackles. ABDOMEN: Bowel sounds present. Patient has biliary drain in place. MUSCULOSKELETAL: movements of the left shoulder restricted because of severe pain and possible osteoarthritis. EXTREMITIES: No cyanosis, clubbing, or pedal edema. NEUROLOGICAL: Gross neurological examination did not reveal any focal deficits. SKIN: No rashes. Initially I ordered an x-ray and after discussion with the family regarding comfort care, I discontinued that. LABORATORY DATA: CBC, CMP are abnormal for low hemoglobin of 8.7 which appears to be chronic, normocytic anemia, UA a bit abnormal with large leukocyte esterase, 66 WBC, 1+ protein and 1+ ketones. ASSESSMENT AND PLAN: 1. Fever possibility of urinary tract infection. Patient received one dose of Rocephin, I will not continue it as most probably the patient will be comfort care. 2. Duodenal cancer, as per the patient appears to be metastatic. We will obtain Medical records from [facility]. Patient is on ( ). We will get opinion from oncology as well. Discussed with the patient regarding comfort care and patient wants to be comfort care and hospice as there are not much options left. Before we evaluate the patient, we will also get the opinion from oncology as well as patient is on Relaxefen at this point of time which is normally used for breast cancer. 3. Hypothyroidism. Hold off on levothyroxine. 4. Metastatic duodenal cancer. 5. Mild acute renal failure. 6. Chronic anemia. 7. As per the history, patient does have history of atrial fibrillation, hyperlipidemia, although these conditions are not being treated at this point of time as most probably the patient will be hospice. Hospice was consulted. Patient's primary care physician is Dr. Zia Jackson.
[2016-08-30] MEDS ORDERED: FAMOTIDINE 20 MG TAB PO SCH (21:00)
[2016-08-31] MEDS: SODIUM CHLORIDE 0.9% 1,000 ML IV SCH (00:49)
[2016-08-31] MEDS: HYDROmorphone 1 MG/ML 1 ML SYRINGE IVP PRN ×4 (05:51→14:56)
[2016-08-31 07:32] VITALS: RESP 16
[2016-08-31] MEDS: ALLOPURINOL 300 MG TAB PO SCH (08:00)
[2016-08-31] MEDS ORDERED: RALOXIFENE 60 MG TAB PO SCH (09:00)
[2016-08-31 16:22] VITALS: BP 95/58; PULSE 105; TEMP 97.1
--- NOTE | 2016-08-31 17:16 | P.DS ---
Providers Date of admission: 08/30/16 04:19 Expected date of discharge: 08/31/16 Attending physician: Connor Jean. Consults: 08/30/16 11:33 Consult Physician Routine Consulting Provider: Pete Hill Consult Reason/Comments: Duodenal cancer Do you want consulting provider notified?: Yes Primary care physician: [place] [facility] Course: Final Diagnoses: 1. 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 Medical records from [facility] received. Oncology opinion appreciated. 2.. Fever possible UTI, received IV Rocephin 3.. No Code, No CPR, No Intubation 4. Comfort care , hospice 5. Hypothyroidism Hospital course: This is an 86-year-old female admitted with generalized weakness, pedal edema, possible UTI, uncontrolled pain in a patient with known duodenal cancer possible metastatic and multiple other medical issues. Received IV Rocephin for UTI. Apparently the metastatic workup was not completed as there were no plans of starting patient on chemotherapy. Options of palliative care and hospice discussed. Patient and family evaluated by and received oncology's recommendations. Patient and family have decided to go home with hospice. The impression and plan of care has been dictated as directed. DrDafne: I performed a H&P examination of this patient and discussed the same with the dictator. I agree with the dictator's note. Any additional findings/opinions/ etc. will be noted. Patient Condition at Discharge: Poor Plan - Discharge Summary New Discharge Prescriptions: LORazepam [Ativan] 0.5 mg SL Q8H PRN #20 tab PRN Reason: Anxiety MORPHINE ORAL SOLN 20mg/mL [Roxanol Oral Soln Conc 20MG/ML] 10 mg SL Q4H PRN # 30 ml PRN Reason: Pain fentaNYL 12MCG/HR PATCH [Duragesic 12MCG/HR] 1 patch TRANSDERM Q72H #3 patch Discharge Medication List Polyethylene Glycol 3350 [Miralax] 17 gm PO DAILY PRN 08/09/16 [History] Ondansetron [Zofran] 4 mg PO Q12HR PRN 08/30/16 [History] Raloxifene [Evista] 60 mg PO DAILY 08/30/16 [History] LORazepam [Ativan] 0.5 mg SL Q8H PRN #20 tab 08/31/16 [Rx] MORPHINE ORAL SOLN 20mg/mL [Roxanol Oral Soln Conc 20MG/ML] 10 mg SL Q4H PRN # 30 ml 08/31/16 [Rx] fentaNYL 12MCG/HR PATCH [Duragesic 12MCG/HR] 1 patch TRANSDERM Q72H #3 patch [Rx] Follow up Appointment(s)/Referral(s): [facility], [NON-STAFF] - As Needed Zia Jackson DO [Primary Care Provider] - As Needed Patient Instructions/Handouts: Hospice (DC) Discharge Disposition: HOME WITH HOSPICE
--- NOTE | 2016-08-31 17:52 | P.CONS ---
History of Present Illness - Reason for Consult Consult date: 08/31/16 Duodenal cancer - History of Present Illness The patient is a pleasant 86-year-old lady, somewhat confused. History was mostly obtained from the chart,, records from [facility], as well as from her daughter. The patient was diagnosed with duodenal cancer in late 2014. He had presented with abdominal pain, with developing obstructive symptoms. She was not a surgical candidate due to extent of disease, as well as her age and other comorbidities. A duodenal stent was therefore placed. She underwent palliative chemotherapy with oral Xeloda at [facility], until the fall. He was then on observation until about 07/03 when she developed progressive disease with obstructive jaundice. Due to location of the primary tumor, she was not a candidate for stent placement with ERCP. Therefore percutaneous drain was placed. She had another admission to [facility] and 07/31 with increased abdominal pain. I believe that she may have had her drain exchanged at that time. The patient was admitted this time by her family, she had a low-grade fever at home, between 100-101. It appears, that they do not the desire active treatment and wanted the patient Comfortable Records from [facility] were reviewed, including visit notes, labs, and CT scan report Past Medical History Past Medical History: Atrial Fibrillation, Asthma, Cancer, GERD/Reflux, Hyperlipidemia, Hypertension, Osteoarthritis (OA), Renal Disease, Thyroid Disorder Additional Past Medical History / Comment(s): duodenal getting chemo(last tx August 2015), cancer, thyroid cancer 1960, gout, UTI, anemia, uti's (10-11-14 e coli), bakers cyst lt knee,osteoporosis History of Any Multi-Drug Resistant Organisms: None Reported Past Surgical History: Joint Replacement, Orthopedic Surgery Additional Past Surgical History / Comment(s): JUSTIN CATARACTS, THYROIDECTOMY, ARTHROSCOPY left knee, TOTAL LEFT KNEE, duodenal stent Past Anesthesia/Blood Transfusion Reactions: No Reported Reaction Additional Past Anesthesia/Blood Transfusion Reaction / Comm: BLOOD TRANSFUSION 10/12/14 Past Psychological History: Anxiety Smoking Status: Never smoker Past Alcohol Use History: None Reported Past Drug Use History: None Reported - Past Family History Mother Family Medical History: Diabetes Mellitus Medications and Allergies Home Medications Medication Instructions Recorded Confirmed Type Polyethylene Glycol 3350 [Miralax] 17 gm PO DAILY PRN 08/09/16 08/30/16 History Ondansetron [Zofran] 4 mg PO Q12HR PRN 08/30/16 08/30/16 History Raloxifene [Evista] 60 mg PO DAILY 08/30/16 08/30/16 History Allergies Allergy/AdvReac Type Severity Reaction Status Date / Time aspirin Allergy Rash/Hives Verified 08/30/16 08:56 red dye Allergy Dyspnea Verified 08/30/16 08:56 metoprolol AdvReac Nausea & Verified 08/30/16 08:56 Vomiting Physical Exam Vitals: Vital Signs Temp Pulse Resp BP Pulse Ox 08/31/16 15:00 97.1 F L 105 H 16 95/58 96 08/31/16 07:00 96.8 F L 85 16 95/52 96 08/31/16 05:50 101/57 08/31/16 00:30 97.8 F 100 20 95/53 96 08/30/16 20:27 115/58 Intake and Output 08/31/16 08/31/16 08/31/16 06:59 14:59 22:59 Intake Total 100 Output Total 200 Balance -100 Intake: Oral 100 Output: Other 200 Other: Voiding Method Bedpan # Voids 1 1 Results CBC & Chem 7: 08/30/16 00:36 08/30/16 00:36 Labs: Microbiology - Last 24 Hours (Table) 08/30/16 09:10 Urine Culture - Final Urine,Clean Catch Assessment and Plan (1) Duodenal adenocarcinoma Narrative/Plan: The patient had unresectable disease at presentation as described. She has now developed progression. A biliary drain was placed for palliation. Most recent CT scan done at [facility] in 07/03 did not show obvious measurable disease. However based on her symptoms, the patient is likely having progression of disease at least in the right upper quadrant with increasing pain and some fever. The case was discussed in detail with her daughter. The patient, as well as her family does not desire any active treatment, which is quite reasonable. The patient has progressed within a few months of stopping Xeloda. Treatment with any chance of being effective, would require aggressive multiagent chemotherapy. She is a very poor candidate for the same, given her age and poor performance status as well as other comorbidities. Therefore the decision not to pursue active treatment is quite reasonable. The patient's daughter was quite concerned about keeping her comfortable at home. She feels they're not able to manage adequately with her current medication. I therefore strongly recommended hospice care. She is agreeable to the same. Consult hospice will be placed Status: Acute
== END 2016-08-31 16:57 | disposition hospice, home (50) | DRG 690 ==
LOC: EC 23:54 → 4MS4W 08-30 04:19
PROVIDERS: ADMIT Hospitalist; ATTEND Hospitalist
DX: N39.0 Urinary tract infection, site not specified (principal); N17.9 Acute kidney failure, unspecified; I48.91 Unspecified atrial fibrillation; C17.0 Malignant neoplasm of duodenum; D64.9 Anemia, unspecified; I10 Essential (primary) hypertension; E03.9 Hypothyroidism, unspecified; E78.5 Hyperlipidemia, unspecified; J45.909 Unspecified asthma, uncomplicated; K21.9 Gastro-esophageal reflux disease without esophagitis; K59.00 Constipation, unspecified; M10.9 Gout, unspecified; M19.90 Unspecified osteoarthritis, unspecified site; M81.0 Age-related osteoporosis without current pathological fracture; Z51.5 Encounter for palliative care; Z66 Do not resuscitate; Z85.850 Personal history of malignant neoplasm of thyroid; Z79.899 Other long term (current) drug therapy; Z88.6 Allergy status to analgesic agent
CPT/HCPCS: 36415; 71010; 80053; 81001; 83605; 85025; 87086; 93005; 96365; 96375; 96376; 99285